=== PATIENT | female | born 1995 | race African-American/Black ===

== ENCOUNTER 2024-10-23 15:50 | Inpatient (IN) | payer OTHER, SELFPAY ==
[2024-10-23] VITALS (17 sets, daily range): BP systolic 106–138; BP diastolic 58–89; PULSE 80–118; RESP 7–20; TEMP 36.4; O2SAT 97–100; BMI 39.4
[2024-10-23 18:28] LABS: Add Manual Diff / Slide Review NO; Basophils Absolute Auto 100 /uL (0-100); Basophils Percent Auto 0.7 % (0-2); Eosinophils Absolute Auto 0 /uL (0-450); Eosinophils Percent Auto 0.5 % (2-4); Hematocrit 41.3 % (36-46); Hemoglobin 13.6 g/dL (12.0-16.0); Lymphocytes Absolute Auto 1700 /uL (1100-4500); Lymphocytes Percent Auto 18.9 % (25-40); Mean Corpuscular Hemoglobin 27.3 PG (26-34); Mean Corpuscular Volume 82.5 fL (80-100); Monocytes Absolute Auto 900 /uL (0-900); Monocytes Percent Auto 9.6 % (3-14); Neutrophils Absolute Auto 6500 /uL (1500-7000); Neutrophils Percent Auto 70.3 % (50-75); Platelet Count 312 X10^3/uL (150-400); Red Cell Distribution Width 15.5 % (11.6-14.8); White Blood Cell Count 9.2 X10^3/uL (4.5-11.0)
[2024-10-23] MEDS: ONDANSETRON 4 MG/2 ML INJ IV (18:34)
--- NOTE | 2024-10-23 18:37 | ED_ITS ---
HPI - Nausea/Vomiting/Diarrhea General Chief complaint: Nausea/Vomiting/Diarrhea Stated complaint: Difficulty swallowing, unable to take diabetic rx Time Seen by Provider: 10/23/24 16:28 Source: patient Mode of arrival: Ambulatory History of Present Illness HPI Narrative: 28-year-old female past medical history of diabetes coming into the ED from home for evaluation of dysphagia, she states that she has been having difficulty swallowing for the past month, states she last ate anything on 09/18/2024, states that she is only able to take small sips of water. She states that this is causing her to feel dehydrated, review of records show that patient has been seen multiple times at outside hospital for this, also went to [facility] ED last month on the and had a CT scan done there that did not show any obstruction or anatomical issues with her being able to swallow. He denies any other symptoms such as headache visual disturbances chest pain shortness breath fever chills abdominal pain or any other GI/ symptoms time. Related Data Home Medications Medication Instructions Recorded Confirmed insulin glargine 100 unit/mL 24 unit SQ HS ##0 02/07/12 07/18/23 subcutaneous solution (Lantus U-100 Insulin) insulin lispro 100 unit/mL 0 u SQ ##0 09/02/16 07/18/23 subcutaneous solution (Humalog U-100 Insulin) Allergies Allergy/AdvReac Type Severity Reaction Status Date / Time oxycodone Allergy Severe Hallucinating, Verified 07/18/23 14:42 SOB, panic attacks trospium Allergy Severe Anaphylaxis Verified 07/18/23 14:42 adhesive Allergy Verified 10/23/24 16:08 Review of Systems Review of Systems Narrative: General: Dysphagia, Denies fever, chills, weight loss HEENT: Denies headache, eye drainage, eye irritation, head trauma, sore throat, voice change Cardiovascular: Denies any chest pain, palpitations, tachycardia Respiratory: Denies any shortness of breath, cough, wheeze, stridor GI/: Denies any abdominal pain, nausea, vomiting, diarrhea, bright red blood per rectum, melanotic stools, urinary frequency, urinary retention, dysuria, hematuria MSK: Denies any joint pain, muscle pains, swelling Skin: Denies any rashes, lesions, discoloration Neuro: Denies any headache, lightheadedness, dizziness, fainting, weakness Psych: Denies SI/HI Patient History Social History Smoking Status: Unknown if ever smoked Smoking Status: Unknown if ever smoked Exam Narrative Exam Narrative: General: Cooperative, well-developed, not in acute distress HEENT: Normocephalic, atraumatic, PERRLA, normal sclera, eyelids normal Neck: Active full range of motion, atraumatic Chest: Normal to inspection, negative crepitus, no overlying erythema ecchymosis Respiratory: Normal respiratory effort, not in acute respiratory distress, clear to auscultation bilaterally negative cough, wheeze, tachypnea, rhonchi, rales Cardiology: Regular rate rhythm negative gallop, murmur, rubs GI/: No tenderness to palpation, soft, non rigid, normal to inspection, exam deferred MSK: Full active range of motion in all 4 extremities, atraumatic, no tenderness to palpation of any bony prominences Skin: No rashes or lesions noted Neuro: Alert awake oriented x3, moves all 4 extremities spontaneously, cranial nerves intact, able to answer all questions appropriately follows commands appropriately Psych: Cooperative, negative suicidal or homicidal ideations Initial Vital Signs Initial Vital Signs: Vital Signs Temperature 97.6 F 10/23/24 16:08 Pulse Rate 116 H 10/23/24 16:08 Respiratory Rate 14 10/23/24 16:08 Blood Pressure 138/89 10/23/24 16:08 Pulse Oximetry 100 10/23/24 16:08 Oxygen Delivery Method Room Air 10/23/24 16:08 Course Orders Ordered: ED Orders 10/23/24 16:29 Stool Culture Stat 10/23/24 18:17 Complete Blood Count AUTO DIFF Stat Comprehensive Metabolic Panel Stat 10/23/24 19:29 VBG [Venous Blood Gas] STAT 10/23/24 19:54 CMP [Comprehensive Metabolic Panel] Stat Ketones (Beta-Hydroxybutyrate) Stat 10/23/24 20:08 Venous Blood Gas Routine 10/23/24 21:12 Consult to Dietitian, Adult Routine 10/23/24 21:15 Basic Metabolic Panel Q4H Glucose DAILY 10/24/24 01:15 Basic Metabolic Panel Q4H 10/24/24 05:15 Basic Metabolic Panel Q4H Lactated Ringer's (Lactated Ringers) 1,000 mls @ 1,000 mls/hr IV BOLUS ONE Stop: 10/23/24 21:16 Discontinued Medications Sodium Chloride (Normal Saline 0.9%) 1,000 mls @ 1,000 mls/hr IV BOLUS ONE Stop: 10/23/24 17:27 Last Infusion: 10/23/24 19:49 Dose: Infused Documented By: Admin: 10/23/24 18:42 Dose: 1,000 mls/hr Documented By: HAMILTON Lorazepam (Lorazepam 0.5 Mg Tablet) 1 mg PO NOW ONE Stop: 10/23/24 21:12 Ondansetron HCl (Ondansetron 4 Mg/2 Ml Inj) 4 mg IV NOW ONE Stop: 10/23/24 16:29 Last Admin: 10/23/24 18:34 Dose: 4 mg Documented By: HAMILTON Vital Signs Vital signs: Vital Signs - 8 hr 10/23/24 16:08 10/23/24 17:40 10/23/24 18:00 Temperature 97.6 F Pulse Rate 116 H 118 H Respiratory Rate 14 Blood Pressure 138/89 132/86 Pulse Oximetry 100 100 Oxygen Delivery Method Room Air 10/23/24 18:00 10/23/24 18:30 10/23/24 18:30 Temperature Pulse Rate 109 H 92 H Respiratory Rate 20 Blood Pressure 109/70 Pulse Oximetry 100 100 Oxygen Delivery Method 10/23/24 19:00 10/23/24 19:00 10/23/24 19:30 Temperature Pulse Rate 87 Respiratory Rate 14 Blood Pressure 112/66 108/66 Pulse Oximetry 100 Oxygen Delivery Method 10/23/24 19:30 Temperature Pulse Rate 88 Respiratory Rate Blood Pressure Pulse Oximetry 100 Oxygen Delivery Method Room Air MDM - Nausea/Vomiting/Diarrhea Differential Diagnosis Differential diagnosis: Likely dehydration and other (Esophageal dysmotility, electrolyte abnormality) Lab Data 10/23/24 18:17 10/23/24 19:54 Labs: Lab Results 10/23/24 10/23/24 10/23/24 Range/Units 18:17 19:54 20:08 WBC 9.2 (4.5-11.0) X10^3/uL RBC 5.00 (4.0-5.2) X10^6/uL Hgb 13.6 (12.0-16.0) g/dL Hct 41.3 (36-46) % MCV 82.5 (80-100) fL MCH 27.3 (26-34) PG MCHC 33.0 (30-36) % RDW 15.5 H (11.6-14.8) % Plt Count 312 (150-400) X10^3/uL Neut % (Auto) 70.3 (50-75) % Lymph % (Auto) 18.9 L (25-40) % [place] % (Auto) 9.6 (3-14) % Eos % (Auto) 0.5 L (2-4) % Baso % (Auto) 0.7 (0-2) % Neut # (Auto) 6500 (1079-6199) /uL Lymph # (Auto) 1700 (8284-3254) /uL [place] # (Auto) 900 (0-900) /uL Eos # (Auto) 0 (0-450) /uL Baso # (Auto) 100 (0-100) /uL VBG pH 7.23 L (7.33-7.43) VBG pCO2 32.4 L (45-50) mmHg VBG pO2 49 H (35-45) mmHg VBG HCO3 14 L (24-28) mmol/L VBG Total CO2 13 L (24-29) mmol/L VBG O2 Saturation 77 H (70-75) % VBG Base Excess -12.9 L (0-4) mmol/L Sodium 135 L 137 (137-145) mmol/L Potassium 3.7 3.5 (3.4-5.1) mmol/L Chloride 105 107 (98-107) mmol/L Carbon Dioxide 9 L* 11 L (22-32) mmol/L BUN 3 L 3 L (7-17) mg/dL Creatinine 0.73 0.65 (0.52-1.04) mg/dL Estimated GFR > 60 > 60 (>60) mL/min BUN/Creatinine Ratio 4.1 L 4.6 L (6-22) Glucose 166 H 159 H (70-99) mg/dL Calcium 9.1 8.4 (8.4-10.2) mg/dL Total Bilirubin 0.7 0.5 (0.2-1.3) mg/dL AST 39 H 28 (14-36) IU/L ALT 24 21 (<35) IU/L Alkaline Phosphatase 91 84 (38-126) U/L Total Protein 8.4 H 7.5 (6.3-8.2) g/dL Albumin 4.6 4.2 (3.5-5.0) g/dL Globulin 3.8 3.3 (1.7-4.1) g/dL Albumin/Globulin Ratio 1.2 1.3 (1.0-2.8) Ketones 5.97 H (<0.27) mmol/L MDM Narrative Medical decision making narrative: 28-year-old female with a past medical history of diabetes stenting for dysphagia, she states it has been ongoing persistent for the past month, has been seen at outside hospitals for the same had imaging and was instructed that nothing was abnormal and to follow up with GI, she states that an appointment for this is several months and due to persistent decreased p.o. intake decides to come into the ED for further evaluation treatment. She states that she feels dehydrated, she states that every time she tries to swallow she feels like it gets stuck in her throat, she states that she has to cough it up, she states that she is worried that this is causing issues with her diabetic medications, she states that she is afraid at her diabetes will go out of control and that she will ? from this here patient without any electrolyte abnormality, glucose under control, I informed patient that she needs to follow up with GI and her primary care doctor for continued evaluation treatment of her symptoms, I stated that we can try a PPI to help with her symptoms for possible esophageal dysmotility, she verbalized understanding of this she was given strict return precautions and verbalized understanding of this, she states that she did feel better after 1 L normal saline bolus here in the emergency department. Patient's lab work consistent with DKA, patient did receive 2 L normal saline here in the emergency department, did start insulin drip per discussion with hospitalist. The patient's management plan was discussed Dr. Blood, who agrees to admit the patient to their service and assumes care of this patient at this time. Full admission orders will be placed by the primary team. Critical Care Time Critical Care Time Critical Care Time: Yes Total Critical Care Time: 35 Attestation: Authorized and Performed by: Minh Mata DO Total critical care time: Approximately [35] minutes Due to a high probability of clinically significant, life threatening deterioration, the patient required my highest level of preparedness to intervene emergently and I personally spent this critical care time directly and personally managing the patient. This critical care time included obtaining a history; examining the patient; pulse oximetry; ordering and review of studies; arranging urgent treatment with development of a management plan; evaluation of patient's response to treatment; frequent reassessment; and, discussions with other providers. This critical care time was performed to assess and manage the high probability of imminent, life-threatening deterioration that could result in multi-organ failure. It was exclusive of separately billable procedures and treating other patients and teaching time. Please see MDM section and the rest of the note for further information on patient assessment and treatment. Discharge Plan Departure Patient Disposition: Admitted As Inpatient Clinical Impression: DKA (diabetic ketoacidosis) Admit Date/Time: 10/23/24 21:11 Admit Provider: Melvin Page
[2024-10-23] MEDS: SODIUM CHLORIDE 0.9% 1,000 ML 1000 ML IV (18:42)
[2024-10-23 19:15] LABS: Alanine Aminotransferase 24 IU/L (<35); Albumin 4.6 g/dL (3.5-5.0); Albumin Globulin Ratio 1.2 (1.0-2.8); Alkaline Phosphatase 91 U/L (38-126); Aspartate Aminotransferase 39 IU/L (14-36); BUN Creatinine Ratio 4.1 (6-22); Bilirubin Total 0.7 mg/dL (0.2-1.3); Blood Urea Nitrogen 3 mg/dL (7-17); Calcium 9.1 mg/dL (8.4-10.2); Chloride 105 mmol/L (98-107); Estimated Glomerular Filt Rate > 60 mL/min (>60); Globulin 3.8 g/dL (1.7-4.1); Glucose 166 mg/dL (70-99); Potassium 3.7 mmol/L (3.4-5.1); Sodium 135 mmol/L (137-145); Total Protein 8.4 g/dL (6.3-8.2)
[2024-10-23 19:22] LABS: HEMOLYSIS 17 (0-50)
[2024-10-23 19:25] LABS: Carbon Dioxide 9 mmol/L (22-32)
[2024-10-23 20:12] LABS: Base Excess VBG -12.9 mmol/L (0-4); HCO3 VBG 14 mmol/L (24-28); Oxygen Saturation VBG 77 % (70-75); PCO2 VBG 32.4 mmHg (45-50); PO2 VBG 49 mmHg (35-45); Total CO2 VBG 13 mmol/L (24-29); pH VBG 7.23 (7.33-7.43)
[2024-10-23 20:36] LABS: Ketones (Beta-Hydroxybutyrate) 5.97 mmol/L (<0.27)
[2024-10-23 20:37] LABS: Alanine Aminotransferase 21 IU/L (<35); Albumin 4.2 g/dL (3.5-5.0); Albumin Globulin Ratio 1.3 (1.0-2.8); Alkaline Phosphatase 84 U/L (38-126); Aspartate Aminotransferase 28 IU/L (14-36); BUN Creatinine Ratio 4.6 (6-22); Bilirubin Total 0.5 mg/dL (0.2-1.3); Blood Urea Nitrogen 3 mg/dL (7-17); Calcium 8.4 mg/dL (8.4-10.2); Carbon Dioxide 11 mmol/L (22-32); Chloride 107 mmol/L (98-107); Estimated Glomerular Filt Rate > 60 mL/min (>60); Globulin 3.3 g/dL (1.7-4.1); Glucose 159 mg/dL (70-99); HEMOLYSIS < 15 (0-50); Potassium 3.5 mmol/L (3.4-5.1); Sodium 137 mmol/L (137-145); Total Protein 7.5 g/dL (6.3-8.2)
[2024-10-23] MEDS: SODIUM CHLORIDE 0.9% 1,000 ML 999 ML IV (22:33)
[2024-10-23] MEDS: LACTATED RINGERS 1,000 ML 1000 ML IV (22:33)
[2024-10-23] MEDS: DEXTROSE 5%-0.45% NS 1,000 ML 150 ML IV (22:34)
[2024-10-23] MEDS: INSULIN DRIP PREMIX 100 UNIT/100 ML PLAST..BAG 8.845 UNIT IV (23:37)
[2024-10-23] MEDS: DEXTROSE 5%-0.45NS W/KCL 20MEQ 1,000 ML 150 MEQ IV (23:40)
[2024-10-24] VITALS (27 sets, daily range): BP systolic 101–134; BP diastolic 55–80; PULSE 77–106; RESP 13–23; TEMP 36.3–36.4; O2SAT 97–100; BMI 39.0; BMI 39.4
[2024-10-24 00:26] LABS: Blood Urea Nitrogen 3 mg/dL (7-17); Calcium 8.1 mg/dL (8.4-10.2); Carbon Dioxide 12 mmol/L (22-32); Chloride 108 mmol/L (98-107); Estimated Glomerular Filt Rate > 60 mL/min (>60); Glucose 193 mg/dL (70-99); HEMOLYSIS < 15 (0-50); Potassium 3.8 mmol/L (3.4-5.1); Sodium 135 mmol/L (137-145)
[2024-10-24 00:41] LABS: Appearance Urine UA CLEAR; Bilirubin Urine UA NEGATIVE (NEGATIVE); Color Urine UA YELLOW; Glucose Urine UA NEGATIVE (Negative); Ketones Urine UA 3+ (NEGATIVE); Leukocyte Esterase Urine UA NEGATIVE (NEGATIVE); Nitrite Urine UA NEGATIVE (Negative); Occult Blood Urine UA TRACE-INTACT (Negative); Protein Urine UA NEGATIVE (Negative); Specific Gravity Urine UA >=1.030 (1.000-1.035); Urobilinogen Urine UA 0.2 E.U./dL (0.2)
[2024-10-24 00:42] LABS: pH Urine UA 5.5 (4.5-8.0)
[2024-10-24 00:44] LABS: Urine Volume 10mL (spun)
[2024-10-24 00:48] LABS: Bacteria Urine Few (2-10); Hyaline Casts Urine 1-5/LPF; RBC Urine None Seen (0-5/HPF); Squamous Epithelial Cell Urine 5-10 /HPF (0-5/HPF)
[2024-10-24 00:49] LABS: Culture Indicated Urine Cult Not Indicated; WBC Urine 0-1/HPF (0-5/HPF)
--- NOTE | 2024-10-24 00:50 | P.HP_ITS ---
History of Present Illness History of Present Illness Date Patient Seen: 10/23/24 Time Patient Seen: 23:30 Chief complaint: Difficulty swallowing, unable to take diabetic rx Narrative: 28 y/o with PMH of anxiety, insulin-dependent type 2 DM, obesity, came to the ED accompanied by father for difficulty swallowing. She reports on weeks and months-long difficulty with swallowing and on anxiety. ED workup showing DKA. She takes liquid metformin, long acting insulin 24 units daily and SS TID, at least 10 units on average. She was seen in another hospital with same complaints had non-revealing workup. She said repeatedly that she can only take sips of water and that she had no food for more then a month, which is not true. Started on insulin drip and admitted with DKA and anxiety. [facility] Medical History (Updated 10/24/24 @ 01:06 by Melvin Blood MD) Obesity Type 2 diabetes mellitus with insulin therapy Social History Smoking Status: Unknown if ever smoked Meds Home Medications and Allergies Home Medications Medication Instructions Recorded Confirmed Type insulin glargine 100 unit/mL 24 unit SQ HS ##0 02/07/12 07/18/23 History subcutaneous solution (Lantus U-100 Insulin) insulin lispro 100 unit/mL 0 u SQ ##0 09/02/16 07/18/23 History subcutaneous solution (Humalog U-100 Insulin) Allergies Allergy/AdvReac Type Severity Reaction Status Date / Time oxycodone Allergy Severe Hallucinating, Verified 07/18/23 14:42 SOB, panic attacks trospium Allergy Severe Anaphylaxis Verified 07/18/23 14:42 adhesive Allergy Verified 10/23/24 16:08 Review of Systems Review of Systems Narrative: General - w/o fever, chills, weight changes GI - difficulty swallowing Neuro - anxious CVS - had chest tightness RS - short of breath, breathing fast today Exam Vital Signs (past 8 hours): - 10/23/24 17:40 10/23/24 18:00 10/23/24 18:00 Pulse Rate 118 H 109 H Respiratory Rate 20 Blood Pressure 132/86 Pulse Oximetry 100 100 Oxygen Delivery Method 10/23/24 18:30 10/23/24 18:30 10/23/24 19:00 Pulse Rate 92 H Respiratory Rate Blood Pressure 109/70 112/66 Pulse Oximetry 100 Oxygen Delivery Method 10/23/24 19:00 10/23/24 19:30 10/23/24 19:30 Pulse Rate 87 88 Respiratory Rate 14 Blood Pressure 108/66 Pulse Oximetry 100 100 Oxygen Delivery Method Room Air 10/23/24 20:00 10/23/24 20:00 10/23/24 20:30 Pulse Rate 90 Respiratory Rate 20 Blood Pressure 113/72 107/62 Pulse Oximetry 100 Oxygen Delivery Method 10/23/24 20:30 10/23/24 21:00 10/23/24 21:00 Pulse Rate 94 H 89 Respiratory Rate 9 L Blood Pressure 106/66 Pulse Oximetry 100 100 Oxygen Delivery Method 10/23/24 21:02 10/23/24 21:02 10/23/24 21:30 Pulse Rate 102 H 84 Respiratory Rate 7 L Blood Pressure 110/67 Pulse Oximetry 100 100 Oxygen Delivery Method 10/23/24 21:30 10/23/24 22:00 10/23/24 22:00 Pulse Rate 94 H Respiratory Rate Blood Pressure 107/58 L 116/68 Pulse Oximetry 100 Oxygen Delivery Method 10/23/24 22:24 10/23/24 22:24 10/23/24 22:33 Pulse Rate 97 H 108 H Respiratory Rate Blood Pressure 122/84 Pulse Oximetry 100 Oxygen Delivery Method 10/23/24 22:34 10/23/24 22:34 10/23/24 23:00 Pulse Rate 99 H 85 Respiratory Rate Blood Pressure 129/75 Pulse Oximetry 97 100 Oxygen Delivery Method Room Air 10/23/24 23:00 10/23/24 23:30 10/23/24 23:30 Pulse Rate 80 Respiratory Rate Blood Pressure 122/68 118/68 Pulse Oximetry 100 Oxygen Delivery Method 10/24/24 00:00 10/24/24 00:00 10/24/24 00:30 Pulse Rate 95 H Respiratory Rate 21 Blood Pressure 111/55 L 116/64 Pulse Oximetry 100 Oxygen Delivery Method Room Air 10/24/24 00:30 Pulse Rate 90 Respiratory Rate 23 Blood Pressure Pulse Oximetry 100 Oxygen Delivery Method Oxygen Delivery Method Room Air Narrative Exam Narrative: General - appears anxious, in no distress, father at bedside in the ED HEENT - normocephalic, supple neck CVS - RRR RS- tachypnea GI - obese abdomen Neuro - w/o deficits. Anxious. Objective Labs 10/23/24 18:17 10/24/24 00:00 Labs: Laboratory Results - last 24 hr 10/23/24 10/23/24 10/23/24 18:17 19:54 20:08 WBC 9.2 RBC 5.00 Hgb 13.6 Hct 41.3 MCV 82.5 MCH 27.3 MCHC 33.0 RDW 15.5 H Plt Count 312 Neut % (Auto) 70.3 Lymph % (Auto) 18.9 L [place] % (Auto) 9.6 Eos % (Auto) 0.5 L Baso % (Auto) 0.7 Neut # (Auto) 6500 Lymph # (Auto) 1700 [place] # (Auto) 900 Eos # (Auto) 0 Baso # (Auto) 100 VBG pH 7.23 L VBG pCO2 32.4 L VBG pO2 49 H VBG HCO3 14 L VBG Total CO2 13 L VBG O2 Saturation 77 H VBG Base Excess -12.9 L Sodium 135 L 137 Potassium 3.7 3.5 Chloride 105 107 Carbon Dioxide 9 L* 11 L BUN 3 L 3 L Creatinine 0.73 0.65 Estimated GFR > 60 > 60 BUN/Creatinine Ratio 4.1 L 4.6 L Glucose 166 H 159 H Calcium 9.1 8.4 Total Bilirubin 0.7 0.5 AST 39 H 28 ALT 24 21 Alkaline Phosphatase 91 84 Total Protein 8.4 H 7.5 Albumin 4.6 4.2 Globulin 3.8 3.3 Albumin/Globulin Ratio 1.2 1.3 Urine Color Urine Appearance Urine pH Ur Specific [place] Urine Protein Urine Glucose (UA) Urine Ketones Urine Occult Blood Urine Nitrate Urine Bilirubin Urine Urobilinogen Ur Leukocyte Esterase Urine RBC Urine WBC Ur Squamous Epith Cells Urine Bacteria Hyaline Casts Ur Culture Indicated? Vol Urine Centrifuged Ketones 5.97 H 10/24/24 10/24/24 00:00 00:16 WBC RBC Hgb Hct MCV MCH MCHC RDW Plt Count Neut % (Auto) Lymph % (Auto) [place] % (Auto) Eos % (Auto) Baso % (Auto) Neut # (Auto) Lymph # (Auto) [place] # (Auto) Eos # (Auto) Baso # (Auto) VBG pH VBG pCO2 VBG pO2 VBG HCO3 VBG Total CO2 VBG O2 Saturation VBG Base Excess Sodium 135 L Potassium 3.8 Chloride 108 H Carbon Dioxide 12 L BUN 3 L Creatinine 0.60 Estimated GFR > 60 BUN/Creatinine Ratio 5.0 L Glucose 193 H Calcium 8.1 L Total Bilirubin AST ALT Alkaline Phosphatase Total Protein Albumin Globulin Albumin/Globulin Ratio Urine Color Yellow Urine Appearance Clear Urine pH 5.5 Ur Specific [place] >=1.030 H Urine Protein Negative Urine Glucose (UA) Negative Urine Ketones 3+ H Urine Occult Blood Trace-intact Urine Nitrate Negative Urine Bilirubin Negative Urine Urobilinogen 0.2 Ur Leukocyte Esterase Negative Urine RBC None seen Urine WBC 0-1/hpf Ur Squamous Epith Cells 5-10 /hpf H Urine Bacteria Few (2-10) H Hyaline Casts 1-5/lpf Ur Culture Indicated? Cult not indicated Vol Urine Centrifuged 10ml (spun) Ketones Assessment & Plan Assessment and plan (1) DKA (diabetic ketoacidosis): Qualifiers: Diabetes mellitus type: due to underlying condition Diabetes mellitus complication detail: without coma Qualified Code(s): E08.10 - Diabetes mellitus due to underlying condition with ketoacidosis without coma Status: Acute (2) Type 2 diabetes mellitus with insulin therapy: Status: Acute (3) Anxiety: Status: Acute (4) Obesity: Qualifiers: Obesity type: due to excess calories Obesity classification: adult class 2 (BMI 35 - 39.9) Serious obesity comorbidity presence: with serious comorbidity Body mass index: BMI 39.0-39.9 Qualified Code(s): E66.812 - Obesity, class 2; E66.01 - Morbid (severe) obesity due to excess calories; Z68.39 - Body mass index [BMI] 39.0-39.9, adult Status: Acute Assessment & Plan narrative: DKA - insulin drip - IVFs, electrolytes - first such an episode since the first one that led to diagnosis of DM in 2019 IDDMT2 - takes metformin, Lantus and Novolog at home - A1C pending Anxiety - likely contributing to feeling of dysphagia, poor intake and possibly DKA - Xanax prn DVT prophylaxis - SCDs GI prophylaxis - Pepcid Patient consented to telemedicine, audio-video encounter with RN assisting with the exam. Patient located at [place], [place]. Provider located in [place]. Time-Based Coding :: [TOTAL MINUTES] spent with patient and on the chart (including review of chart, obtaining history, exam, reviewing outside data, placing orders, documenting exam and treatment plan, and counseling patient) on [DATE].
[2024-10-24 05:09] LABS: Add Manual Diff / Slide Review NO; Basophils Absolute Auto 100 /uL (0-100); Basophils Percent Auto 0.7 % (0-2); Eosinophils Absolute Auto 100 /uL (0-450); Eosinophils Percent Auto 1.6 % (2-4); Hematocrit 32.7 % (36-46); Hemoglobin 11.3 g/dL (12.0-16.0); Lymphocytes Absolute Auto 2200 /uL (1100-4500); Lymphocytes Percent Auto 27.2 % (25-40); Mean Corpuscular HGB Conc 34.5 % (30-36); Mean Corpuscular Hemoglobin 27.8 PG (26-34); Mean Corpuscular Volume 80.7 fL (80-100); Monocytes Absolute Auto 1000 /uL (0-900); Monocytes Percent Auto 12.5 % (3-14); Neutrophils Absolute Auto 4600 /uL (1500-7000); Platelet Count 268 X10^3/uL (150-400); Red Blood Cell Count 4.05 X10^6/uL (4.0-5.2); Red Cell Distribution Width 15.4 % (11.6-14.8); White Blood Cell Count 7.9 X10^3/uL (4.5-11.0)
[2024-10-24 05:20] LABS: BUN Creatinine Ratio 3.3 (6-22); Blood Urea Nitrogen 2 mg/dL (7-17); Calcium 7.8 mg/dL (8.4-10.2); Carbon Dioxide 14 mmol/L (22-32); Chloride 111 mmol/L (98-107); Estimated Glomerular Filt Rate > 60 mL/min (>60); Glucose 141 mg/dL (70-99); HEMOLYSIS < 15 (0-50); Potassium 3.3 mmol/L (3.4-5.1); Sodium 135 mmol/L (137-145)
[2024-10-24 05:24] LABS: Hemoglobin A1C% w Est Avg Glu 7.5 % (4.0-6.0)
[2024-10-24] MEDS: DEXTROSE 5%-0.45NS W/KCL 20MEQ 1,000 ML 150 MEQ IV (06:54)
[2024-10-24 07:20] LABS: Calcium 7.9 mg/dL (8.4-10.2); Carbon Dioxide 14 mmol/L (22-32); Chloride 111 mmol/L (98-107); Estimated Glomerular Filt Rate > 60 mL/min (>60); Glucose 125 mg/dL (70-99); HEMOLYSIS < 15 (0-50); Potassium 3.3 mmol/L (3.4-5.1); Sodium 135 mmol/L (137-145)
[2024-10-24 07:21] LABS: BUN Creatinine Ratio 3.6 (6-22); Blood Urea Nitrogen < 2 mg/dL (7-17)
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
[2024-10-24] MEDS: INSULIN GLARGINE 100 UNIT/ML 3ML PEN 20 UNIT SUBCUT (08:35)
[2024-10-24] MEDS: FAMOTIDINE 20 MG/2 ML VIAL IV ×2 (08:36→23:43)
--- NOTE | 2024-10-24 09:11 | PC.NURSE ---
Informed MD Rojo and Marcelo (Pharm) that there was a malfunction in administration the first time 20 units Lantus was given--pen did not puncture skin and insulin noted to be on skin. 2nd administration was attempted in which some insulin was noted to be on skin again and pt states they are not sure if needle punctured skin. MD Rojo stated we will watch pt. Pharmacy stated to hold off on any further administrations.
--- NOTE | 2024-10-24 10:08 | PC.NURSE ---
Pt reports inability to swallow but states she is able to swallow ensure and water w/o issue
[2024-10-24 10:20] LABS: BUN Creatinine Ratio 3.8 (6-22); Blood Urea Nitrogen < 2 mg/dL (7-17); Calcium 8.2 mg/dL (8.4-10.2); Carbon Dioxide 15 mmol/L (22-32); Chloride 110 mmol/L (98-107); Estimated Glomerular Filt Rate > 60 mL/min (>60); Glucose 127 mg/dL (70-99); HEMOLYSIS 20 (0-50); Potassium 3.5 mmol/L (3.4-5.1); Sodium 135 mmol/L (137-145)
--- NOTE | 2024-10-24 16:36 | ST.SWALLOW ---
Visit Care Team Role Provider Type Lori Hickey PA-C Other Providers [employer] Grinder Operator Specialty: Medical Wound Care Address: [address] [place] [address], [id number] Email: [email or web address] Evan Zelaya MD Other Providers Physician Specialty: General Surgery Address: [address] [place] [address], [address], [address] Email: [email or web address] Zoila Cuevas DPM Other Providers Non-Staff Specialty: Podiatry Address: [address] [place] [address], [id number] Email: Molina Spicer MD Other Providers Physician Specialty: Wound Care Address: [address] [place] [address], [id number] Email: [email or web address] Hans Coreas MD Other Providers Non-Staff Specialty: Wound Care Address: [address] [place] [address], [id number] Email: [email or web address] ROSA ISELA Lemon Family Provider Non-Staff Primary Care Provider Specialty: Medical Address: [place], [address] Email: Minh Mata DO Emergency Provider Physician Referring Provider Specialty: Emergency Medicine Address: [address] [place] [address], [id number] Fax: Email: [email or web address] Melvin Blood MD Admit Provider Physician Attending Provider Specialty: Internal Medicine Address: [address] [place] [address], [id number] Email: [email or web address] Modified Barium Swallow Study CUSTOMS ENTRY CLERK Modified Barium Swallow Study Start: 10/24/24 14:27 Freq: Status: Active Protocol: Document 10/24/24 14:27 SS (Rec: 10/24/24 14:30 SS Desktop) Modified Barium Swallow Study Total Time Visit Start Time 13:45 Visit Stop Time 14:20 Total Visit Minutes [address] Francois Rojo Reason for Referral Difficulty swallowing Setting Setting Acute Care Patient Information Identification Type Name,Date of Patient History Per H&P:28 y/o with PMH of anxiety, insulin-dependent type 2 DM, obesity, came to the ED accompanied by father for difficulty swallowing. She reports on weeks and months- long difficulty with swallowing and on anxiety. ED workup showing DKA. She takes liquid metformin, long acting insulin 24 units daily and SS TID, at least 10 units on average. She was seen in another hospital with same complaints had non-revealing workup. She said repeatedly that she can only take sips of water and that she had no food for more then a month, which is not true. Started on insulin drip and admitted with DKA and anxiety. Per clinical swallowing evaluation completed on 10/24, pt referred for ST evaluation d/t Pt admitted for difficulty swallowing. She reports she has had trouble swallowing for about a month now, ever since she choked on what she believes was a donut. She denies any choking events this then, however state food feels like it gets stuck in her throat and that there's a lump in her throat. She reports she has tried pureed textures and smoothies and they all feel like they get stuck. She reports the only thing she can consume that doesn't get stuck is water or shakes that are thinned out with water. Pt reported progressing difficulty with swallowing for about 2-3 months. She reported oral musculature fatigue, sensation of solids and thicker liquids sticking in her throat and getting stuck, coughing and regurgitation after meals, and feeling of spasms in her esophagus. About a month ago, she reported stopping eating solids and thicker liquids due to fear of these symptoms. Medical history includes insulin-dependent type 2 DM, anxiety, and admitting diagnosis of diabetic ketoacidosis. Pt does have GERD, though is not currently managing with medication. She denied recent falls/injuries to the head and neck area, neurological dx, PNA, or esophageal/pulmonary issues. Modified Barium Swallow Study (MBSS) completed to visualize and assess swallow function and anatomy, determine aspiration risk, make appropriate and updated diet and treatment recommendations, as well as to identify need for additional referrals. Subjective Observations Pt was seated in the fluoroscopy chair with directions and procedures described for her. She indicated she understood and agreed to proceed. Frequent reassurance provided as pt was anxious throughout the study. Patient Positioning Position View Lat-A/P Imaging Lateral View Textures Administered Trials Presented Thin Liquid via Spoon (IDDSI 0 ),Thin Liquid via Cup (IDDSI 0 ),Puree (IDDSI 4),Regular ( IDDSI 7) Barium Tablet No The IDDSI Framework Protocol: IDDSI.1 Oral Impairment Source: The Modified Barium Swallow Impairment Profile (MBSImP??) Lip Closure No labial escape Tongue Control During Bolus Hold Cohesive bolus between tongue to palatal seal Bolus Preparation/Mastication Timely & efficient chewing & mashing Bolus Transport/Lingual Motion Brisk tongue motion Oral Residue Complete oral clearance Initiation of Pharyngeal Swallow Bolus head at posterior angle of ramus (first hyoid excursion) Additional Oral Impairment Observations Within normal limits. Oral acceptance of bolus was WNL. Pt demonstrated adequate labial seal. Bolus formation was organized and efficient. Anterior-posterior transit of the bolus was timely. Mastication was timely and efficient. There was no significant oral residue observed. Oral bolus control was WNL. Pharyngeal Impairment Source: The Modified Barium Swallow Impairment Profile (MBSImP??) Soft Palate Elevation No bolus between soft palate & pharyngeal wall Laryngeal Elevation Comp.sup.move.thyroid cart.w/ comp.approx.arytenoids to epiglot petiole Anterior Hyoid Excursion Complete anterior movement Epiglottic Movement Complete inversion Laryngeal Vestibular Closure Complete; no air/contrast in laryngeal vestibule Pharyngeal Stripping Wave Present - complete Pharyngoesophageal Segment Opening Complete distention & complete duration; no obstruction of flow Tongue Base Retraction No contrast between tongue base & posterior pharyngeal wall Pharyngeal Residue Trace residue within/on pharyngeal structures Location Diffuse (>3 areas) Additional Pharyngeal Impairment Within normal limits. Swallow Observations was initiated with liquids and solids at the posterior angle of the ramus. Velopharyngeal closure was WNL. Hyoid/ laryngeal elevation was judged to be adequate. The epiglottis inverted completely . Tongue base retraction was adequate. Pharyngeal stripping wave was complete. Cricopharyngeal opening appeared adequate and did not appear to impede bolus flow into the esophagus. Trace post -swallow residue was observed, primarily at the base of tongue and valleculae, though this is a normal variation. Pt sensate to residue and independently cleared with multiple dry swallows. A/P View Textures Administered Trials Presented Thin Liquid via Cup (IDDSI 0), Regular (IDDSI 7) The IDDSI Framework Protocol: IDDSI.1 A/P View Observations Pharyngeal Contraction Complete Esophageal Clearance Upright Position Esophageal retention w/ regtrograde flow below pharyngoesoph segment Additional A-P Observations Trace residual following some trials of thin liquids via cup . Reverse flow of small amount of contrast observed mid chest as well as small air bubble, quickly clearing to the stomach. Pt reported feeling of esophageal spasm and sticking sensation ( pointing at her throat). Only small amounts of liquids and solids trials due to pt feeling anxious about eliciting further symptoms. Barium tablet withheld given pt request. Esophagus quickly cleared without need for liquid wash. Pt coughed following trials, reporting sticking sensation, though contrast had cleared to the stomach at that point. Clinical Impressions Dysphagia Type WNL,Esophageal Findings Pt presented with all phases of swallowing WNL. AP view indicated minimal esophageal retention and reverse flow of contrast, quickly clearing. Impairment in the esophageal phase of the swallow, combined with unmanaged GERD, may be the cause of the globus sensation and other symptoms reported by the pt. This may also be related to referred sensation reported by pt. Education regarding the findings of today's evaluation was provided and treatment recommendations were reviewed. Pt would benefit from general GERD precautions, including sitting upright for during intake and for 30 minutes after, slow rate, and alternating liquids and solids with aid with esophageal clearance. Recommend continuation with baseline diet of regular solids and thin liquids. Pt may modify texture of solids as needed. Recommend pt follow MD recommendation for EGD to rule out severe esophagitis from reflux versus stricture as well as PPI to manage GERD. No concern for swallowing efficiency/safety at this time , though pt will benefit from a GI referral. CUSTOMS ENTRY CLERK discussed MBS results and recommendations with MD. Patient Appropriate for Therapy No: Suspected esophageal phase impairment; further GI workup recommended Recommendations Diet Liquids Order Thin (IDDSI 0) Diet Order Regular (IDDSI 7) Medication Recommendation As Tolerated Treatment Plan Recommended Referrals GI Consult,Dietary Consult Placement Recommendation After Discharge Home
--- NOTE | 2024-10-24 16:46 | ST.IPCSEOM ---
Visit Care Team Role Provider Type Lori Hickey PA-C Other Providers Advanced Latcher Specialty: Medical Wound Care Address: [address] [place] [address], [address] Email: [email or web address] Evan Zelaya MD Other Providers Physician Specialty: General Surgery Address: [address] [place] [address], [address], [place], [address] Email: [email or web address] Zoila Cuevas DPM Other Providers Non-Staff Specialty: Podiatry Address: [address] [place] [address], [address] Email: Molnia Spicer MD Other Providers Physician Specialty: Wound Care Address: [address] [place] [address], [address] Email: [email or web address] Hans Coreas MD Other Providers Non-Staff Specialty: Wound Care Address: [address] [place] [address], [address] Email: [email or web address] ROSA ISELA Lemon Family Provider Non-Staff Primary Care Provider Specialty: Medical Address: [place], [address] Email: Minh Mata DO Emergency Provider Physician Referring Provider Specialty: Emergency Medicine Address: [address] [place] [address], [address] Fax: Email: [email or web address] Melvin Blood MD Admit Provider Physician Attending Provider Specialty: Internal Medicine Address: [address] [place] [address], [address] Email: [email or web address] Diabetes mellitus due to underlying condition with ketoacidosis without coma (10/23/24) Type 2 diabetes mellitus without complications (10/23/24) Morbid (severe) obesity due to excess calories (10/23/24) Obesity, class 2 (10/23/24) Anxiety disorder, unspecified (10/23/24) Body mass index [BMI] 39.0-39.9, adult (10/23/24) [facility] (current) use of insulin (10/23/24) Past Medical History (Last Reviewed 10/24/24 @ 07:22 by Francois Rojo MD) Obesity (Medical) Type 2 diabetes mellitus with insulin therapy (Medical) Speech-Language Pathology Swallow Evaluation CNC MANAGER Clinical Swallow Evaluation Start: 10/24/24 13:54 Freq: Status: Active Protocol: Document 10/24/24 13:55 MA (Rec: 10/24/24 14:13 MA Desktop) Clinical Swallow Evaluation Session Time Visit Start Time 12:20 Visit Stop Time 12:45 Total Visit Minutes 25 Visit Information Visit Number [address] Francois Rojo Reason for Referral Difficulty swallowing Setting Assessment Location Acute Care Visit Type Note Type Initial evaluation Next Note Type Next Note Type Treatment Note Patient Information Identification Type Name,Wristband History Per H&P:28 y/o with PMH of anxiety, insulin-dependent type 2 DM, obesity, came to the ED accompanied by father for difficulty swallowing. She reports on weeks and months-long difficulty with swallowing and on anxiety. ED workup showing DKA. She takes liquid metformin, long acting insulin 24 units daily and SS TID, at least 10 units on average. She was seen in another hospital with same complaints had non-revealing workup. She said repeatedly that she can only take sips of water and that she had no food for more then a month, which is not true. Started on insulin drip and admitted with DKA and anxiety. PMHx significant for: Obesity Type 2 diabetes mellitus with insulin therapy Pt referred for ST evaluation d/t Pt admitted for difficulty swallowing. She reports she has had trouble swallowing for about a month now, ever since she choked on what she believes was a donut. She denies any choking events this then, however state food feels like it gets stuck in her throat and that there's a lump in her throat. She reports she has tried pureed textures and smoothies and they all feel like they get stuck. She reports the only thing she can consume that doesn't get stuck is water or shakes that are thinned out with water. Subjective Observations Pt sitting on EOB upon ST entering room. Pt is oriented, alert, and compliant with ST evaluation. Reported by Patient/Caregiver Other Symptoms Difficulty swallowing liquids, Difficulty swallowing solids, Food gets stuck Current Diet Regular (IDDSI 7) Baseline Feeding Method Independent in self-feeding The IDDSI Framework Protocol: IDDSI.1 Objective Assessment Mental Status Alert,Responsive,Cooperative Oral Integrity WFL Dentition Within normal limits Lip Function Within normal limits Pucker Within normal limits Lip Retraction Within normal limits Alternating Pucker/Lip Retraction Within normal limits Tongue Function Within normal limits Observations of Tongue at Rest Within normal limits Tongue Protrusion Within normal limits Tongue Retraction Within normal limits Jaw Opening Within normal limits Jaw Closing Within normal limits Food and Liquid Trials Position During Assessment Upright (90 degrees) Liquids Trialed Thin (IDDSI 0) Solid Trials Purred (IDDSI 4) Administration Type Tea spoon Oral Impairment Within normal limits Oral Phase Comments Pt with reduced PO intake d/t her reporting scared of choking. She was compliant with consuming thin water via cup and a 1/2 tsp of applesauce 1x. For thin water she exhibited adequate sip size and rate, good oral acceptance and containment. Same results orally for trial of applesauce. She was presented with pudding trial, however declined d/t nervousness around choking. Pharyngeal Impairment Within functional limits Pharyngeal Phase Comments Pt exhibited no overt s/s of aspiration such as choking or coughing with clear vocal quality post swallows. However , ST unable to fully assess pharyngeal phase of the swallow d/t limited PO trials. She reported globus sensation post swallow of applesauce and stated it was the same feeling she had when she swallowed Ensure earlier in the day. Fatigue/Endurance Endurance WNL Strategies Attempted Effortful swallow The IDDSI Framework Protocol: IDDSI.1 Findings Swallowing Function Within functional limits Severity of Swallow Impairment Within functional limits Prognosis Good Comment ST suspects Pt reported swallowing difficulties are associated with an esophageal component. Recommendations Instrumental Assessment Yes Swallowing Treatment No Recommended Solids Regular (IDDSI 7) Recommended Liquids Thin (IDDSI 0) Other Recommendations ST recommends Pt consume baseline diet of regular solids and thin liquids at this time per her tolerance. ST unable to assess swallow function with different consistencies d/t Pt declining d/t her reporting nervous she will choke. ST communicated recommendation for Pt to have a MBS done with MD who agreed and ordered MBS , which Pt is scheduled for later this date to further analyze oral and pharyngeal phase of the swallow. Safety Precautions/Swallowing Remain upright (90 degrees) Recommendations during all oral intake,Upright position at least 30 minutes after meals,Small bites and sips when eating,Slow rate; swallow between bites Medication Recommendations As Tolerated Discharge Recommendations Home Referrals Recommended Referrals Dietary,Gastroenterology Education Patient/Caregiver Education Described results of evaluation,Patient expressed understanding of evaluation, Patient expressed agreement with goals & treatment plans
--- NOTE | 2024-10-24 17:59 | PM.CN.IH.1 ---
History of Present Illness Consult details Date Patient Seen: 10/24/24 Time Patient Seen: 17:59 Chief complaint: Difficulty swallowing, unable to take diabetic rx Narrative: Faith is a 28-year-old woman with multiple medical problems who presents with dysphagia. She states that she has not eaten solid food in about a month. Food tends to get stuck in her throat and she has to cough it back up. She had an EGD many years ago. Meds Home Medications and Allergies Home Medications Medication Instructions Recorded Confirmed Type insulin glargine 100 unit/mL 24 unit SQ HS ##0 02/07/12 07/18/23 History subcutaneous solution (Lantus U-100 Insulin) insulin lispro 100 unit/mL 0 u SQ ##0 09/02/16 07/18/23 History subcutaneous solution (Humalog U-100 Insulin) Allergies Allergy/AdvReac Type Severity Reaction Status Date / Time oxycodone Allergy Severe Hallucinating, Verified 07/18/23 14:42 SOB, panic attacks trospium Allergy Severe Anaphylaxis Verified 07/18/23 14:42 adhesive Allergy Verified 10/23/24 16:08 Peaches Allergy Uncoded 10/24/24 16:17 Exam Vital Signs (past 8 hours): - 10/24/24 10:31 Temperature 97.6 F Pulse Rate 106 H Respiratory Rate 16 Blood Pressure 113/80 Pulse Oximetry 99 Oxygen Flow Rate 0 Oxygen Delivery Method Room Air Oxygen Flow Rate 0 Const General: No acute distress Objective Labs 10/24/24 05:00 10/24/24 09:55 Labs: Laboratory Results - last 24 hr 10/23/24 10/23/24 10/23/24 18:17 19:54 20:08 WBC 9.2 RBC 5.00 Hgb 13.6 Hct 41.3 MCV 82.5 MCH 27.3 MCHC 33.0 RDW 15.5 H Plt Count 312 Neut % (Auto) 70.3 Lymph % (Auto) 18.9 L Bradley % (Auto) 9.6 Eos % (Auto) 0.5 L Baso % (Auto) 0.7 Neut # (Auto) 6500 Lymph # (Auto) 1700 Bradley # (Auto) 900 Eos # (Auto) 0 Baso # (Auto) 100 VBG pH 7.23 L VBG pCO2 32.4 L VBG pO2 49 H VBG HCO3 14 L VBG Total CO2 13 L VBG O2 Saturation 77 H VBG Base Excess -12.9 L Sodium 135 L 137 Potassium 3.7 3.5 Chloride 105 107 Carbon Dioxide 9 L* 11 L BUN 3 L 3 L Creatinine 0.73 0.65 Estimated GFR > 60 > 60 BUN/Creatinine Ratio 4.1 L 4.6 L Glucose 166 H 159 H Hemoglobin A1c Calcium 9.1 8.4 Total Bilirubin 0.7 0.5 AST 39 H 28 ALT 24 21 Alkaline Phosphatase 91 84 Total Protein 8.4 H 7.5 Albumin 4.6 4.2 Globulin 3.8 3.3 Albumin/Globulin Ratio 1.2 1.3 Urine Color Urine Appearance Urine pH Ur Specific [place] Urine Protein Urine Glucose (UA) Urine Ketones Urine Occult Blood Urine Nitrate Urine Bilirubin Urine Urobilinogen Ur Leukocyte Esterase Urine RBC Urine WBC Ur Squamous Epith Cells Urine Bacteria Hyaline Casts Ur Culture Indicated? Vol Urine Centrifuged Ketones 5.97 H 10/24/24 10/24/24 10/24/24 00:00 00:16 05:00 WBC 7.9 RBC 4.05 Hgb 11.3 L Hct 32.7 L MCV 80.7 MCH 27.8 MCHC 34.5 RDW 15.4 H Plt Count 268 Neut % (Auto) 58.0 Lymph % (Auto) 27.2 Bradley % (Auto) 12.5 Eos % (Auto) 1.6 L Baso % (Auto) 0.7 Neut # (Auto) 4600 Lymph # (Auto) 2200 Bradley # (Auto) 1000 H Eos # (Auto) 100 Baso # (Auto) 100 VBG pH VBG pCO2 VBG pO2 VBG HCO3 VBG Total CO2 VBG O2 Saturation VBG Base Excess Sodium 135 L 135 L Potassium 3.8 3.3 L Chloride 108 H 111 H Carbon Dioxide 12 L 14 L BUN 3 L 2 L Creatinine 0.60 0.61 Estimated GFR > 60 > 60 BUN/Creatinine Ratio 5.0 L 3.3 L Glucose 193 H 141 H Hemoglobin A1c 7.5 H Calcium 8.1 L 7.8 L Total Bilirubin AST ALT Alkaline Phosphatase Total Protein Albumin Globulin Albumin/Globulin Ratio Urine Color Yellow Urine Appearance Clear Urine pH 5.5 Ur Specific [place] >=1.030 H Urine Protein Negative Urine Glucose (UA) Negative Urine Ketones 3+ H Urine Occult Blood Trace-intact Urine Nitrate Negative Urine Bilirubin Negative Urine Urobilinogen 0.2 Ur Leukocyte Esterase Negative Urine RBC None seen Urine WBC 0-1/hpf Ur Squamous Epith Cells 5-10 /hpf H Urine Bacteria Few (2-10) H Hyaline Casts 1-5/lpf Ur Culture Indicated? Cult not indicated Vol Urine Centrifuged 10ml (spun) Ketones 10/24/24 10/24/24 07:00 09:55 WBC RBC Hgb Hct MCV MCH MCHC RDW Plt Count Neut % (Auto) Lymph % (Auto) Bradley % (Auto) Eos % (Auto) Baso % (Auto) Neut # (Auto) Lymph # (Auto) Bradley # (Auto) Eos # (Auto) Baso # (Auto) VBG pH VBG pCO2 VBG pO2 VBG HCO3 VBG Total CO2 VBG O2 Saturation VBG Base Excess Sodium 135 L 135 L Potassium 3.3 L 3.5 Chloride 111 H 110 H Carbon Dioxide 14 L 15 L BUN < 2 L < 2 L Creatinine 0.56 0.52 Estimated GFR > 60 > 60 BUN/Creatinine Ratio 3.6 L 3.8 L Glucose 125 H 127 H Hemoglobin A1c Calcium 7.9 L 8.2 L Total Bilirubin AST ALT Alkaline Phosphatase Total Protein Albumin Globulin Albumin/Globulin Ratio Urine Color Urine Appearance Urine pH Ur Specific [place] Urine Protein Urine Glucose (UA) Urine Ketones Urine Occult Blood Urine Nitrate Urine Bilirubin Urine Urobilinogen Ur Leukocyte Esterase Urine RBC Urine WBC Ur Squamous Epith Cells Urine Bacteria Hyaline Casts Ur Culture Indicated? Vol Urine Centrifuged Ketones [facility] Medical History Obesity Type 2 diabetes mellitus with insulin therapy Social History household members: family Tobacco & Substance Use Smoking Status: Never smoker Assessment & Plan Assessment and plan (1) Dysphagia: Qualifiers: Dysphagia type: esophageal phase Qualified Code(s): R13.19 - Other dysphagia Status: Acute Plan We discussed the role of an EGD for dysphagia. We can put her on scheduled for an EGD tomorrow afternoon. She would like to proceed. Time-Based Coding :: [TOTAL MINUTES] spent with patient and on the chart (including review of chart, obtaining history, exam, reviewing outside data, placing orders, documenting exam and treatment plan, and counseling patient) on [DATE]. PROFEE Charge Codes Inpatient or Observation consultation: [id number]
[2024-10-24] MEDS: PANTOPRAZOLE 40 MG VIAL IV ×2 (18:19→23:36)
[2024-10-24] MEDS: METOCLOPRAMIDE 10 MG/2 ML INJ 5 MG IV (23:37)
[2024-10-25] VITALS (7 sets, daily range): BP systolic 99–122; BP diastolic 53–80; PULSE 83–114; RESP 14–25; TEMP 36.1–36.6; O2SAT 97–100
--- NOTE | 2024-10-25 | PATH_ITS ---
[facility] Accession Number: [id number] No. of containers..05 Tissue . 01 Material submitted: . PART A: duodenum - DUODENAL BIOPSY PART B: gastrointestinal site - ANTRAL BIOPSY PART C: gastrointestinal site - STOMACH, FUNDUS BIOPSY PART D: esophagus - ESOPHAGEAL, DISTAL PART E: esophagus - ESOPHAGEAL, MID . 01 Diagnosis: A. DUODENUM, BIOPSY: Histologically unremarkable duodenal mucosa. Negative for villous blunting and intraepithelial lymphocytosis. . B. STOMACH, ANTRUM, BIOPSY: Antral mucosa with focal mild chronic inflammation. Negative for Helicobacter organisms and intestinal metaplasia. . C. STOMACH, FUNDUS, BIOPSY: Histologically unremarkable oxyntic mucosa. Negative for Helicobacter organisms and intestinal metaplasia. . D. DISTAL ESOPHAGUS, BIOPSY: Histologically unremarkable squamous epithelium. Negative for intraepithelial eosinophilia. . E. MID ESOPHAGUS, BIOPSY: Histologically unremarkable squamous epithelium. Negative for intraepithelial eosinophilia. [facility] 11/01/2024 1205 Local . 01 Comment: Immunohistochemistry for Helicobacter organisms is performed on block A1 and is negative. . - Technical Note: The immunohistochemical stains reported were performed with appropriately staining controls at [facility] ([address], [facility] [address]). This test was developed and performance characteristics validated by [facility]. It has not been cleared or approved by the Food and Drug Administration. . 01 Electronically signed: . Laura Diego DO, Pathologist NPI- [id number] . 01 Gross description: . A. Received in formalin with two identifiers and duodenal biopsy, is a single mckeon soft tissue fragment 0.3 cm in greatest dimension. Submitted in cassette A1. B. Received in formalin with two identifiers and antral biopsy, is a single mckeon soft tissue fragment 0.3 cm in greatest dimension. Submitted in cassette B1. C. Received in formalin with two identifiers and fundus of stomach, is a single mckeon soft tissue fragment 0.4 cm in greatest dimension. Submitted in cassette C1. D. Received in formalin with two identifiers and esophageal biopsy distal, is a single mckeon soft tissue fragment 0.2 cm in greatest dimension. Submitted in cassette D1. E. Received in formalin with two identifiers and esophageal bx, are two mckeon soft tissue fragments 0.4 and 0.4 cm in greatest dimension. Submitted in cassette E1. ([id number]) /MERCEDEZ 10/28/2024 0630 Local . 01 Pathologist provided ICD-10: E66.812 . 01 CPT . 682407, 641049, 841491, 400038, 138428, [id number] Specimen Comment: A courtesy copy of this report has been sent to [phone] Performed at: [address] [id number] MD Dony Alexandre MD Phone: [phone]
[2024-10-25] MEDS: PANTOPRAZOLE 40 MG VIAL IV ×2 (08:10→20:43)
[2024-10-25] MEDS: INSULIN LISPRO 100 UNIT/ML 3ML VIAL SUBCUT ×3 (08:10→17:39)
[2024-10-25] MEDS: FAMOTIDINE 20 MG/2 ML VIAL IV ×2 (08:10→20:43)
[2024-10-25 08:11] LABS: Hematocrit 36.6 % (36-46); Hemoglobin 12.3 g/dL (12.0-16.0); Mean Corpuscular HGB Conc 33.7 % (30-36); Mean Corpuscular Hemoglobin 27.4 PG (26-34); Mean Corpuscular Volume 81.1 fL (80-100); Platelet Count 276 X10^3/uL (150-400); Red Blood Cell Count 4.51 X10^6/uL (4.0-5.2); Red Cell Distribution Width 15.5 % (11.6-14.8); White Blood Cell Count 7.3 X10^3/uL (4.5-11.0)
[2024-10-25 08:44] LABS: Calcium 8.7 mg/dL (8.4-10.2); Carbon Dioxide 16 mmol/L (22-32); Chloride 106 mmol/L (98-107); Estimated Glomerular Filt Rate > 60 mL/min (>60); Glucose 173 mg/dL (70-99); HEMOLYSIS 17 (0-50); Potassium 3.2 mmol/L (3.4-5.1); Sodium 136 mmol/L (137-145)
[2024-10-25 08:45] LABS: BUN Creatinine Ratio 3.5 (6-22); Blood Urea Nitrogen < 2 mg/dL (7-17)
[2024-10-25] MEDS: LACTATED RINGERS 1,000 ML 42 ML IV (12:02)
--- NOTE | 2024-10-25 12:17 | PM.OP.EGD ---
Operative Date/Time/Diagnoses Date of procedure: 10/25/24 Time of procedure: 12:51 Pre-op diagnosis: Dysphagia Post-op diagnosis: same Procedure & Clinicians Study performed: Esophagogastroduodenoscopy Same procedure as scheduled: Yes Surgeon: Evan Zelaya Procedure Notes Procedure in detail: Surgeon: Evan Zelaya MD Anesthesia: Gretel Parrish CRNA A timeout was performed. A bite blocked was placed. The patient was positioned in the left lateral decubitus position. Anesthesia was administered. The endoscope was inserted through the bite block and passed through the esophagus and stomach and into the duodenum. The duodenal mucosa appeared normal however random biopsies were taken with cold forceps. The scope was withdrawn into the stomach. There were no obvious ulcers or gastritis in the distal stomach however random biopsies were taken from the antrum with cold forceps. The scope was retroflexed and no hiatal hernia was seen. There was however punctate bleeding from the mucosa of the fundus and biopsies were taken with the cold forceps.. The scope was withdrawn into the esophagus and no obvious stricture was seen. The esophageal mucosa appeared grossly normal however random biopsies were taken from the distal and mid esophagus with cold forceps. The scope was withdrawn. The patient was awakened and brought to recovery. Sedation time: 9 minutes Findings: Punctate bleeding in the fundus Post-procedure Disposition: PACU
--- NOTE | 2024-10-25 12:17 | PM.PN.IH.1 ---
Subjective Subjective Date Patient Seen: 10/25/24 Time Patient Seen: 12:18 Interval history: No changes since yesterday. Exam Vital Signs (past 8 hours): - 10/25/24 08:00 Temperature 97.6 F Pulse Rate 89 Respiratory Rate 16 Blood Pressure 110/67 Pulse Oximetry 98 Oxygen Flow Rate 0 Oxygen Delivery Method Room Air Oxygen Flow Rate 0 Const General: No acute distress Objective Labs 10/25/24 08:00 10/25/24 08:00 Labs: Laboratory Results - last 24 hr 10/25/24 08:00 WBC 7.3 RBC 4.51 Hgb 12.3 Hct 36.6 MCV 81.1 MCH 27.4 MCHC 33.7 RDW 15.5 H Plt Count 276 Sodium 136 L Potassium 3.2 L Chloride 106 Carbon Dioxide 16 L BUN < 2 L Creatinine 0.57 Estimated GFR > 60 BUN/Creatinine Ratio 3.5 L Glucose 173 H Calcium 8.7 PFSH Medical History Obesity Type 2 diabetes mellitus with insulin therapy Social History household members: family Smoking Status: Never smoker Assessment & Plan Assessment and plan (1) Dysphagia: Qualifiers: Dysphagia type: esophageal phase Qualified Code(s): R13.19 - Other dysphagia Status: Acute Plan EGD Time-Based Coding :: [TOTAL MINUTES] spent with patient and on the chart (including review of chart, obtaining history, exam, reviewing outside data, placing orders, documenting exam and treatment plan, and counseling patient) on [DATE]. Quality VTE Deep Vein Thrombosis/Pulmonary Embolism Present on Admission: No PROFEE Car Ferry Master Document charge(s): No
--- NOTE | 2024-10-25 14:24 | DIET.CONS ---
Addendum entered by Dolores Trujillo 10/25/24 15:42: RN notes indicate wounds. Would rec prioritizing protein intake once NPO status changes. Will continue to monitor. Original Note: Dietary Consultation Note Admission Date: 10/23/2024 21:11 Assessment: 28 y/o F admitted with difficulty swallowing and PMH of IDDMII, PCOS. ED evaluation indicating DKA. Reports PMH of DM since age 13, 2009 with DKA presentation. Treated with Metformin and MDI. Has not been taking insulin or Metformin x 2-3 weeks. Denies any BG over 220mg/dl. Reports [id number] and through the day up to 213mg/dl. Not wearing CGM lately. Sees Dr. Davenport at [facility]. States they have discussed the potential for GABRIELLE diagnosis. States they have had brief discussions about insulin pump therapy, which she is interested in. Saw a DM educator at time of diagnosis, none since. Endorses limited intake x 30 days due to fear of choking with swallowing issues. Limited to sips of thin liquids as even ONS caused the feeling of food stuck in her esophagus per report. MUSHROOM LABORER and GI consult completed with EGD scheduled this afternoon. Endorses 8# of wt loss over one month, 4% loss (not significant). Home insulin dosinu basal daily 8u ac bolus with 1:25 correction starting at 125mg/dl Ht: 149.86 cm Wt: 88.5 kg BMI: 39.4 Last BM: 10/18/24 (10/24/24 00:15) MNA: 4 Gabo Score: 19 Diet: 10/25/24 Dinner Dysphagia Diet Diet Modifications: diabetic Food Texture: Level 7 - Regular Liquid Consistency: Level 0 - Thin Labs: RBC 4.51 X10^6/uL (4.0-5.2) 10/25/24 08:00 Hgb 12.3 g/dL (12.0-16.0) 10/25/24 08:00 Hct 36.6 % (36-46) 10/25/24 08:00 Creatinine 0.57 mg/dL (0.52-1.04) 10/25/24 08:00 Hemoglobin A1c 7.5 % (4.0-6.0) H 10/24/24 05:00 Nutrition Diagnosis: Predicated inadequate energy intake r/t limited ability to swallow aeb pt report and 8# wt loss over one month; Altered nutrition related lab value r/t endocrine dysfunction aeb hgA1c of 7.5% Interventions: 1. Discussed plan for OP diabetes care and requested referral to program 2. Provided OP DSME contact info 3. Discussed pt goals for DM care 4. Encouraged Cpeptide labs-- messaged hospitalist Nutrition rx: CHO 45g per meal Monitoring/Evaluations: After EGD can evaluate PO. RD f/u in 3-5 days or sooner prn. Electronically Signed by: Dolores Trujillo 10/25/24 14:24 Clinical Dietitian [address] [address]
--- NOTE | 2024-10-25 14:26 | DIET.CONS2 ---
Dietary Inpatient Consultation Note Admission Date: 10/23/2024 21:11 DM educator, Dolores Trujillo, met with pt at bedside to complete consultation. Note pending. Diet: 10/25/24 Dinner Dysphagia Diet Diet Modifications: diabetic Food Texture: Level 7 - Regular Liquid Consistency: Level 0 - Thin Electronically Signed by: Kat Hinds 10/25/24 14:26 Clinical Dietitian [address] [address]
--- NOTE | 2024-10-25 15:07 | CM.DANOTE ---
Initial DCP Assessment Visit Note Reviewed EMR and team rounds for status updates. Met with pt and her family at bedside to introduce self and role. Pt was found to be somnolnet, anxious, however was able to share her concerns and fear of choking on food/fluids, and worried now that she knows that she had some patchy/bleeding areas seen in her throat during the endoscopy procedure earlier today. She resides with her parents in their home in [facility]. Family will transport at d/c, no anticipated CM d/c needs identified at this time. Payor: [employer] PCP: Hailey Gardner Pt is a 28 year-old F with rivera hx of type II diabetes, she presented to the ED via family vehicle with c/o having persistent swallowing difficulties for the last month, despite having presented to an outside hospital several times during this time with no clear etiology for why this is happening. Pt shares that she hasn't been able to eat or drink for a month, other than small sips of water, due to choking. She has a hx of anxiety disorder which is now exacerbated with her choking fears and food aversion. SEISMIC COMPUTER did an assessment today, and indicated that there clearly seems to be an esophogeal component to her swallow challenge,however again was unable to determine the cause. Pt tx plan is unclear as to next steps, she will be speaking with Dr. Zelaya later this afternoon to determine if there are any other inpt eval options, or if she will continue to need to f/u outpatient with a more thorough GI provider. DCP will continue to follow and assist with any final d/c assistance or resource needs. Discharge Planning/Care Management CM Discharge Assessment Start: 10/24/24 00:15 Freq: Status: Active Protocol: Document 10/25/24 15:05 DPL (Rec: 10/25/24 15:06 DPL [id number]) Discharge Planning Assessment Assigned Roll Cleaner JOHANA Gallegos Advance Directives? No Advance Directives on File No History Provided By Patient,Medical Record Prior Living Arrangements House Household Members family Type of transporation used prior to Drives own vehicle admit Independent with ADL's Yes Is patient alert and oriented? Yes Caregiver for Another No Comment N/A Comment OP GI eval and tx Barriers to Discharge No Discharge Plan Home Transportation Arrangement Family Referrals Initiated None needed Whiteboard Updated in Patient Room with Yes name and ext. # of Roll Cleaner Review Status In Process Please Provide Date Initial DC 10/25/24 Assessment Was Performed
--- NOTE | 2024-10-25 15:16 | PC.WOUNDPHOT ---
Wound photos were taken on 10/24/24
--- NOTE | 2024-10-25 17:30 | PM.CN ---
History of Present Illness Consult details Date Patient Seen: 10/25/24 Time Patient Seen: 17:00 Chief complaint: Difficulty swallowing, unable to take diabetic rx Narrative: The patient is a 28-year-old female with obesity and diabetes who was admitted to the hospital with DKA and dysphagia. She has a several year history of having hidradenitis suppurativa involving each axilla and along the inframammary folds on each side. She is currently having pain and drainage from the right axilla and has an open area beneath her right breast. She has tried taking doxycycline in the past however this offered very little benefit. She denies having any fever or chills. The patient reports that she is unable to take pills because of her dysphagia. Meds Home Medications and Allergies Home Medications Medication Instructions Recorded Confirmed Type insulin glargine 100 unit/mL 20 unit SQ HS ##0 02/07/12 10/24/24 History subcutaneous solution (Lantus U-100 Insulin) famotidine 40 mg/5 mL (8 mg/mL) 40 mg PO BID 10/24/24 10/24/24 History oral suspension insulin aspart U-100 100 unit/mL See Rx Instructions .Route .COMPLEX 10/24/24 10/24/24 History (3 mL) subcutaneous pen (Novolog FlexPen U-100 Insulin aspart) metformin 500 mg/5 mL oral solution See Rx Instructions .Route .COMPLEX 10/24/24 10/24/24 History Allergies Allergy/AdvReac Type Severity Reaction Status Date / Time oxycodone Allergy Severe Hallucinating, Verified 07/18/23 14:42 SOB, panic attacks trospium Allergy Severe Anaphylaxis Verified 07/18/23 14:42 adhesive Allergy Verified 10/23/24 16:08 Peaches Allergy Uncoded 10/24/24 16:17 Review of Systems Gastrointestinal Comments: Dysphagia Integumentary/Breasts Comments: Open sores draining purulent fluid Exam Vital Signs (past 8 hours): - 10/25/24 12:56 10/25/24 13:01 10/25/24 13:08 Temperature 97 F L 98 F Pulse Rate 112 H 114 H 100 H Respiratory Rate 14 15 25 H Blood Pressure 106/59 L 99/53 L 101/58 L Pulse Oximetry 97 99 98 Oxygen Delivery Method Room Air Room Air Room Air Oxygen Flow Rate 10/25/24 13:30 Temperature 97.8 F Pulse Rate 83 Respiratory Rate 16 Blood Pressure 102/55 L Pulse Oximetry 99 Oxygen Delivery Method Oxygen Flow Rate 0 Oxygen Delivery Method Room Air Oxygen Flow Rate 0 Narrative Exam Narrative: Obese female who is alert and oriented and in no apparent distress Skin Other: Hidradenitis involving each axilla with acute inflammation and tenderness in the right axilla, small open area inferior right breast Objective ECG Impression: Hidradenitis suppurativa involving axilla and both breasts Labs 10/25/24 08:00 10/25/24 08:00 Labs: Laboratory Results - last 24 hr 10/25/24 08:00 WBC 7.3 RBC 4.51 Hgb 12.3 Hct 36.6 MCV 81.1 MCH 27.4 MCHC 33.7 RDW 15.5 H Plt Count 276 Sodium 136 L Potassium 3.2 L Chloride 106 Carbon Dioxide 16 L BUN < 2 L Creatinine 0.57 Estimated GFR > 60 BUN/Creatinine Ratio 3.5 L Glucose 173 H Calcium 8.7 PFSH Medical History Obesity Type 2 diabetes mellitus with insulin therapy Social History household members: family Tobacco & Substance Use Smoking Status: Never smoker Assessment & Plan Assessment and plan (1) Hidradenitis suppurativa: Status: Acute Assessment & Plan narrative: The patient has hidradenitis with acute inflammation tenderness in the right axilla. Plan to start Bactrim elixir b.i.d. and paint the area with Betadine twice daily and allow to air dry. Daily application of Cleocin cream has also been shown to be helpful to reduce the number of flare ups. Time-Based Coding :: [45 MINUTES] spent with patient and on the chart (including review of chart, obtaining history, exam, reviewing outside data, placing orders, documenting exam and treatment plan, and counseling patient) on [10/25/24].
[2024-10-25 18:14] LABS: Carbon Dioxide 19 mmol/L (22-32); Chloride 104 mmol/L (98-107); Estimated Glomerular Filt Rate > 60 mL/min (>60); Glucose 140 mg/dL (70-99); HEMOLYSIS < 15 (0-50); Potassium 2.9 mmol/L (3.4-5.1); Sodium 138 mmol/L (137-145)
[2024-10-25 18:15] LABS: BUN Creatinine Ratio 3.7 (6-22); Blood Urea Nitrogen < 2 mg/dL (7-17)
--- NOTE | 2024-10-25 18:24 | PM.PN.1 ---
Subjective Subjective Interval history: 28 year old female admitted with dysphagia. She complains of feeling like her food is getting stuck. EGD today was largely unremarkable and non-contributory toward her symptoms but was noted to have punctate bleeding from her gastric fundus. Biopsies were taken. Her insulin was stopped yesterday, however will resume half usual home dose and monitor overnight to see if improvement in acidosis. Exam Vital Signs (past 8 hours): - 10/25/24 12:56 10/25/24 13:01 10/25/24 13:08 Temperature 97 F L 98 F Pulse Rate 112 H 114 H 100 H Respiratory Rate 14 15 25 H Blood Pressure 106/59 L 99/53 L 101/58 L Pulse Oximetry 97 99 98 Oxygen Delivery Method Room Air Room Air Room Air Oxygen Flow Rate 10/25/24 13:30 Temperature 97.8 F Pulse Rate 83 Respiratory Rate 16 Blood Pressure 102/55 L Pulse Oximetry 99 Oxygen Delivery Method Oxygen Flow Rate 0 Oxygen Delivery Method Room Air Oxygen Flow Rate 0 Narrative Exam Narrative: NAD, alert and oriented, fluent speech, calm. Normocephalic skull, EOMI, anicteric sclera, symmetric pupils. Oropharynx unremarkable, no droop. Neck supple, midline trachea, no adenopathy. Lungs clear, normal rate and effort. Heart regular, no murmur gallop or rub. Abdomen is soft, non distended and non tender. Extremities are free of edema. Skin is free of rash or lesions. Joints are not swollen or deformed. Judgment appears to be normal. Objective Labs 10/25/24 08:00 10/25/24 17:56 Labs: Laboratory Results - last 24 hr 10/25/24 10/25/24 08:00 17:56 WBC 7.3 RBC 4.51 Hgb 12.3 Hct 36.6 MCV 81.1 MCH 27.4 MCHC 33.7 RDW 15.5 H Plt Count 276 Sodium 136 L 138 Potassium 3.2 L 2.9 L Chloride 106 104 Carbon Dioxide 16 L 19 L BUN < 2 L < 2 L Creatinine 0.57 0.54 Estimated GFR > 60 > 60 BUN/Creatinine Ratio 3.5 L 3.7 L Glucose 173 H 140 H Calcium 8.7 9.0 PFSH Medical History Obesity Type 2 diabetes mellitus with insulin therapy Social History household members: family Smoking Status: Never smoker Assessment & Plan Assessment & Plan narrative: DKA,improved unclear why insulin was fully withheld. repeat BMP this afternoon, if no recurrent DKA restart half home dose of lantus. Monitor overnight for hypoglycemia given decreased PO intake. Dysphagia, active. - EGD with fundal punctate bleeding, but no severe esophagitis or stricture noted. - recommend outpatient GI follow up with possible manometry, consider gastrograffin study as well. IDDMT2, uncontrolled and active. - takes metformin, Lantus and Novolog at home. Resume 1/2 usual dose of lantus, continue sliding scale. - A1C pending Anxiety, stable. - Xanax prn Plan: -restart lantus this evening, monitor for hypoglycemia overnight. Unclear cause of dysphagia but discussed with surgery and next step likely outpatient GI for further evaluation. -correctional lispro. -A1c 7.5% -PPI IV Q12 for 24 hours then transition to PO. -dietary consult, consider calorie count, likely need to add ensure clear. Possible discharge home tomorrow with outpatient GI follow up. DVT prophylaxis - SCDs GI prophylaxis - Pepcid Time-Based Coding :: [TOTAL MINUTES] spent with patient and on the chart (including review of chart, obtaining history, exam, reviewing outside data, placing orders, documenting exam and treatment plan, and counseling patient) on [DATE]. Quality VTE Deep Vein Thrombosis/Pulmonary Embolism Present on Admission: No
[2024-10-25] MEDS: POTASSIUM CHLORIDE IN WATER 10 MEQ/100 ML PIGGYBACK 100 MEQ IV ×2 (18:54→23:56)
[2024-10-25] MEDS: INSULIN GLARGINE 100 UNIT/ML 3ML PEN 10 UNIT SUBCUT (21:18)
[2024-10-26 00:52] VITALS: BP 126/74; PULSE 86; RESP 19; TEMP 36.6; O2SAT 100
[2024-10-26] MEDS: POTASSIUM CHLORIDE IN WATER 10 MEQ/100 ML PIGGYBACK 100 MEQ IV ×2 (01:10→02:29)
[2024-10-26 04:00] VITALS: BP 113/48; PULSE 98; RESP 18; TEMP 36.4; O2SAT 98
[2024-10-26 05:31] LABS: Calcium 8.7 mg/dL (8.4-10.2); Carbon Dioxide 18 mmol/L (22-32); Chloride 106 mmol/L (98-107); Estimated Glomerular Filt Rate > 60 mL/min (>60); Glucose 139 mg/dL (70-99); HEMOLYSIS < 15 (0-50); Potassium 3.3 mmol/L (3.4-5.1); Sodium 135 mmol/L (137-145)
[2024-10-26 05:32] LABS: BUN Creatinine Ratio 3.8 (6-22); Blood Urea Nitrogen < 2 mg/dL (7-17)
[2024-10-26 08:00] VITALS: BP 103/64; PULSE 99; RESP 12; TEMP 36.6; O2SAT 100
[2024-10-26] MEDS: PANTOPRAZOLE 40 MG VIAL IV (09:37)
[2024-10-26] MEDS: FAMOTIDINE 20 MG/2 ML VIAL IV (09:37)
--- NOTE | 2024-10-26 10:34 | CM.DPNOTE ---
DCP Continued: Reviewed EMR and team rounds for pt?s medical status. Per hospitalist, patient could be cleared for discharge today as their insulin has been restarted and would just require outpatient GI follow up which he will place referral. Plan: Anticipating dc home with family on 10/26 or when medically cleared. CM Team will continue to follow for coordination of discharge plans. HO Chávez
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
[2024-10-26] MEDS: POTASSIUM CHLORIDE 20 MEQ/15 ML UDC 40 MEQ PO (13:35)
--- NOTE | 2024-10-26 14:07 | DIET.PN1 ---
Dietary Progress Note Assessment: 28 y/o F admitted with difficulty swallowing and PMH of IDDMII, PCOS. ED evaluation indicating DKA. Reports wounds under breasts. Has tried ONS in the past, but texture still difficult for her. Mostly unremarkable findings with EGD. Plans for OP follow-up with GI. Ht: 149.86 cm Wt: 88.5 kg BMI: 39.4 Nutritional BW: 54.5kg Last BM: 10/18/24 (10/24/24 00:15) MNA: 4 Gabo Score: 18 Diet: 10/25/24 Dinner Carbohydrate Consistent Diet Diet Modifications: diet per [employer] Carbohydrate level: Medium (3 CHO) Reflex DM orders: No Food Texture: Level 7 - Regular Liquid Consistency: Level 0 - Thin Labs: RBC 4.51 X10^6/uL (4.0-5.2) 10/25/24 08:00 Hgb 12.3 g/dL (12.0-16.0) 10/25/24 08:00 Hct 36.6 % (36-46) 10/25/24 08:00 Creatinine 0.53 mg/dL (0.52-1.04) 10/26/24 04:41 Hemoglobin A1c 7.5 % (4.0-6.0) H 10/24/24 05:00 Nutrition Diagnosis: Predicated inadequate energy intake r/t limited ability to swallow aeb pt report and 8# wt loss over one month; Altered nutrition related lab value r/t endocrine dysfunction aeb hgA1c of 7.5% Interventions: 1. Reviewed ONS options and nutrition rx 2. Encouraged thinning ONS prn to texture she feels comfortable with swallowing 3.Provided ONS samples to try, including Ensure MAX and Ensure PLUS Nutrition rx: CHO 45g per meal; 1200-1600kcal (24-30kcal/kg) 65-82g PRO (1.2-1.5g/kg) Monitoring/Evaluations: D/c planned for today if medically cleared. Encouraged OP RD CDCES follow-up. Pt agreed to this plan. Electronically Signed by: Dolores Trujillo 10/26/24 14:07 Clinical Dietitian [address] [id number]
--- NOTE | 2024-10-26 16:03 | PC.NURSE ---
Pt independent in room. Denies discomfort, in to see; orders for D/C received. SL D/C intact. Home instructions given w/ understanding. Transportation arrived; pt escorted ambulatory w/ staff to waiting vehicle. ' D/C in stable status.
== END 2024-10-26 15:46 | disposition home or self-care (01) | DRG 420 ==
LOC: ED 19:00 → AC 21:11
PROVIDERS: Emergency Medicine; Hospitalist; Internal Medicine; Surgery; Admitting Provider Internal Medicine; Emergency Provider Student in an Organized Health Care Education/Training Program; Family Provider Nurse Practitioner Family; PCP Nurse Practitioner Family; Referring Provider Student in an Organized Health Care Education/Training Program; Visit Provider Internal Medicine
PROC: 0DJ08ZZ Inspection of Upper Intestinal Tract, Via Natural or Artificial Opening Endoscopic (ICD-10-PCS; principal; 2024-10-25 09:00)
DX: E11.10 Type 2 diabetes mellitus with ketoacidosis without coma (principal); E66.01 Morbid (severe) obesity due to excess calories; L73.2 Hidradenitis suppurativa; F41.9 Anxiety disorder, unspecified; T17.928A Food in respiratory tract, part unspecified causing other injury, initial encounter; R13.19 Other dysphagia; W44.F3XA Food entering into or through a natural orifice, initial encounter; Z68.39 Body mass index [BMI] 39.0-39.9, adult; Z79.4 Long term (current) use of insulin; Z79.84 Long term (current) use of oral hypoglycemic drugs
CPT/HCPCS: 36415; 43239; 74230; 80048; 80053; 81001; 81025; 82009; 82805; 82962; 83036; 85025; 85027; 92610; 92611; 96365; 96366; 96367; 96368; 96375; 99232; 99284; 99291; J1815; J2405; J2470; J2704; J2765

== ENCOUNTER 2024-11-18 07:31 | Inpatient (IN) | payer OTHER, SELFPAY ==
[2024-10-24 00:26] VITALS: BMI 39.4
[2024-11-18] VITALS (19 sets, daily range): BP systolic 107–156; BP diastolic 56–74; PULSE 71–127; RESP 15–23; TEMP 35.8–36.9; O2SAT 96–100; BMI 34.7
--- NOTE | 2024-11-18 07:55 | ED.ABDPAIN ---
HPI - Abdominal Pain General Chief Complaint: Abdominal Pain Stated Complaint: Severe acid reflux and gurd; vomiting blood Time Seen by Provider: 11/18/24 07:33 Source: patient Mode of arrival: Ambulatory History of Present Illness HPI narrative: 29-year-old female history of type 2 diabetes admitted back a few months ago for difficulty swallowing solids with suspected esophageal dysmotility disorder with EGD and barium swallow completed presents with continued difficulty swallowing along with multiple bouts of nausea and vomiting daily that prohibits her from eating and drinking. As such she also states she has not been able to take her insulin correctly to manage her diabetes. She was supposed to have an outpatient manometry study done at [facility] but apparently the GI MD did not proceed with the procedure. Patient is actively vomiting in the room at time of examination. Other than what is stated 14 point review of system is negative. Related Data Home Medications ?Medication ?Instructions ?Recorded ?Confirmed famotidine 40 mg/5 mL (8 mg/mL) 40 mg PO BID 10/24/24 10/24/24 oral suspension insulin aspart U-100 100 unit/mL See Rx Instructions .Route .COMPLEX 10/24/24 10/24/24 (3 mL) subcutaneous pen (Novolog FlexPen U-100 Insulin aspart) Previous Rx's ?Medication ?Instructions ?Recorded insulin glargine 100 unit/mL 10 unit (0.1 mL) SQ HS #3 mL 10/26/24 subcutaneous solution (Lantus U-100 Insulin) Allergies Allergy/AdvReac Type Severity Reaction Status Date / Time oxycodone Allergy Severe Hallucinating, Verified 11/18/24 07:43 SOB, panic attacks trospium Allergy Severe Anaphylaxis Verified 11/18/24 07:43 adhesive Allergy Verified 11/18/24 07:43 Peaches Allergy Uncoded 11/18/24 07:43 Review of Systems Review of Systems ROS Unobtainable: All systems reviewed & are unremarkable except as noted in HPI and below Patient History Medical History Obesity Type 2 diabetes mellitus with insulin therapy Social History household members: family Smoking Status: Never smoker Smoking Status: Never smoker Exam Narrative Exam Narrative: GENERAL: [29] year old patient appears stated age. Well-developed patient, in mild distress. HEAD: Atraumatic. Normocephalic. EYES: Pupils equal round and reactive. Extraocular motions intact. No scleral icterus. No injection or drainage. ENT: Nose without bleeding, purulent drainage. Throat without erythema, tonsillar hypertrophy or exudate. Airway patent. NECK: Trachea midline. Non tender CARDIOVASCULAR: Tachycardic Regular rate and rhythm without murmurs, gallops, or rubs. RESPIRATORY: Clear to auscultation. Breath sounds equal bilaterally. No wheezes, rales, or rhonchi. GASTROINTESTINAL: Abdomen soft epigastric region tender to palpate but no rebound rigidity or guarding, nondistended. EXTREMITIES: No edema or joint tenderness. BACK: Nontender without deformity or crepitance. No flank tenderness. NEURO: AOx3. GCS 15 nonfocal neuro exam SKIN: No rash or erythema of visible areas Initial Vital Signs Initial Vital Signs: Vital Signs Temperature 98.5 F 11/18/24 07:43 Pulse Rate 127 H 11/18/24 07:43 Respiratory Rate 18 11/18/24 07:43 Blood Pressure 156/70 H 11/18/24 07:43 Pulse Oximetry 100 11/18/24 07:43 Oxygen Delivery Method Room Air 11/18/24 07:43 Course Orders Ordered: ED Orders 11/18/24 07:58 Complete Blood Count AUTO DIFF Stat Comprehensive Metabolic Panel Stat Lipase Stat 11/18/24 08:01 Urine Drug Screen, Rapid Stat Urine Microscopic Stat 11/18/24 08:02 CT abdomen pelvis w con Stat 11/18/24 08:03 Blood Culture Stat Lactate (Lactic Acid) Stat VBG [Venous Blood Gas] STAT 11/18/24 08:13 Venous Blood Gas Routine Discontinued Medications Metoclopramide HCl (Metoclopramide 10 Mg/2 Ml Inj) 10 mg IV NOW ONE Stop: 11/18/24 08:02 Pantoprazole Sodium (Pantoprazole 40 Mg Vial) 40 mg IV NOW ONE Stop: 11/18/24 08:04 Vital Signs Vital signs: Vital Signs - 8 hr 11/18/24 07:43 Temperature 98.5 F Pulse Rate 127 H Respiratory Rate 18 Blood Pressure 156/70 H Pulse Oximetry 100 Oxygen Delivery Method Room Air MDM - Abdominal Pain Lab Data 11/18/24 07:58 11/18/24 07:58 Labs: Lab Results 11/18/24 11/18/24 Range/Units 07:58 08:13 WBC 7.6 (4.5-11.0) X10^3/uL RBC 5.66 H (4.0-5.2) X10^6/uL Hgb 15.5 (12.0-16.0) g/dL Hct 46.2 H (36-46) % MCV 81.6 (80-100) fL MCH 27.3 (26-34) PG MCHC 33.5 (30-36) % RDW 15.9 H (11.6-14.8) % Plt Count 112 L (150-400) X10^3/uL Neut % (Auto) 64.1 (50-75) % Lymph % (Auto) 22.2 L (25-40) % [place]w % (Auto) 12.5 (3-14) % Eos % (Auto) 0.9 L (2-4) % Baso % (Auto) 0.3 (0-2) % Neut # (Auto) 4800 (0836-7404) /uL Lymph # (Auto) 1700 (2643-4585) /uL [place] # (Auto) 900 (0-900) /uL Eos # (Auto) 100 (0-450) /uL Baso # (Auto) 0 (0-100) /uL VBG pH 7.36 (7.33-7.43) VBG pCO2 38.4 L (45-50) mmHg VBG pO2 32 L (35-45) mmHg VBG HCO3 22 L (24-28) mmol/L VBG Total CO2 21 L (24-29) mmol/L VBG O2 Saturation 60 L (70-75) % VBG Base Excess -3.1 L (0-4) mmol/L FiO2 % 21.0 % % Sodium 135 L (137-145) mmol/L Potassium 3.6 (3.4-5.1) mmol/L Chloride 97 L (98-107) mmol/L Carbon Dioxide 18 L (22-32) mmol/L BUN < 2 L (7-17) mg/dL Creatinine 0.62 (0.52-1.04) mg/dL Estimated GFR > 60 (>60) mL/min BUN/Creatinine Ratio 3.2 L (6-22) Glucose 257 H (70-99) mg/dL Calcium 9.4 (8.4-10.2) mg/dL Total Bilirubin 1.1 (0.2-1.3) mg/dL AST 34 (14-36) IU/L ALT 19 (<35) IU/L Alkaline Phosphatase 90 (38-126) U/L Total Protein 8.7 H (6.3-8.2) g/dL Albumin 4.8 (3.5-5.0) g/dL Globulin 3.9 (1.7-4.1) g/dL Albumin/Globulin Ratio 1.2 (1.0-2.8) Imaging Data CT scan - abdomen/pelvis: Radiologist's Impression: [address] [address] [address] Scan Report Signed Patient: Faith Rojo MR#: [id number] : 1995 Acct:[id number] Age/Sex: 29 / F Date of Service: 11/18/24 Loc: ED Accession Number: [id number] Procedure: CT abdomen pelvis w con Ordering Provider: Pipo Salas D.O. PROCEDURE: CT ABDOMEN PELVIS W CON INDICATIONS: abd pain n/v TECHNIQUE: After the administration of intravenous contrast, axial sections acquired from the lung bases to the pubic symphysis. Coronal and sagittal reformats were performed. For radiation dose reduction, the following was used: automated exposure control, adjustment of mA and/or kV according to patient size. COMPARISON: None. FINDINGS: Image quality: Diagnostic. Lower Chest: No significant findings. BDOMEN: Liver: No solid mass. There is an area of focal fatty infiltration at the ligamentum teres. Gallbladder: No radiopaque gallstones or wall thickening. Biliary ducts: No biliary dilation. Pancreas: The pancreas is mildly edematous and demonstrates mesenteric inflammation and free fluid about the head and body. There is no focal mass. No ductal dilation. Spleen: Size is within normal limits. Adrenal Glands: No adrenal nodules. Kidneys and Ureters: No hydronephrosis. No solid mass. No complex renal cystic lesion which requires follow up. A small amount of hyperattenuating material is present within the renal collecting system, possibly secondary to a previous CT although none is available for review. Stomach and Bowel: Normal colonic caliber, without significant wall thickening. Oral contrast is seen within the rectum. Peritoneum: No abnormal intraperitoneal fluid. No free air. Ventral Wall: No significant ventral hernia. Abdominal Nodes: No retroperitoneal or mesenteric adenopathy by size criteria. Vessels: Aorta and inferior vena cava are normal in size. PELVIS: Pelvic Organs: Unremarkable. Bladder: No bladder wall thickening, accounting for underdistention. Pelvic Nodes: No enlarged lymph nodes. Miscellaneous: No inguinal hernias are seen. Bones: No aggressive osseous abnormality. IMPRESSION: Acute uncomplicated pancreatitis. MDM Narrative Medical decision making narrative: All lab work, vital signs, nurse triage note, medication list, previous ER visits, and all imaging studies reviewed. CT scan showed acute uncomplicated diverticulitis. Lipase 2392, white count normal, platelet 112, VBG pH 7.36 CO2 38 point bicarb 22 base excess -3.1, , sodium 135 , potassium 3.6 , chloride 97 CO2 18 anion gap of 23. 6, BUN of 2, creatinine 0.62, glucose of 257, ketones 5.19. Patient given normal saline 1 L bolus, 10 mg of Reglan IV and 30 of Toradol IV. Differential diagnosis includes cholecystitis, pancreatitis, DKA, diverticulitis, constipation, kidney stone, kidney infection, gastroparesis. Case discussed with Dr. Blake who has graciously accepted the patient for inpatient admission Discharge Plan Departure Patient Disposition: Admitted As Inpatient Clinical Impression: Pancreatitis Qualifiers: Chronicity: acute Pancreatitis type: unspecified pancreatitis type Acute pancreatitis complication: no infection or necrosis Qualified Code(s): K85.90 - Acute pancreatitis without necrosis or infection, unspecified DKA (diabetic ketoacidosis) Qualifiers: Diabetes mellitus type: type 2 Diabetes mellitus complication detail: without coma Qualified Code(s): E11.10 - Type 2 diabetes mellitus with ketoacidosis without coma Admit Date/Time: 11/18/24 10:32 Admit Provider: Lacie Blake
--- NOTE | 2024-11-18 08:02 | DI.CT.S_ITS ---
PROCEDURE: CT ABDOMEN PELVIS W CON INDICATIONS: abd pain n/v TECHNIQUE: After the administration of intravenous contrast, axial sections acquired from the lung bases to the pubic symphysis. Coronal and sagittal reformats were performed. For radiation dose reduction, the following was used: automated exposure control, adjustment of mA and/or kV according to patient size. COMPARISON: None. FINDINGS: Image quality: Diagnostic. Lower Chest: No significant findings. ABDOMEN: Liver: No solid mass. There is an area of focal fatty infiltration at the ligamentum teres. Gallbladder: No radiopaque gallstones or wall thickening. Biliary ducts: No biliary dilation. Pancreas: The pancreas is mildly edematous and demonstrates mesenteric inflammation and free fluid about the head and body. There is no focal mass. No ductal dilation. Spleen: Size is within normal limits. Adrenal Glands: No adrenal nodules. Kidneys and Ureters: No hydronephrosis. No solid mass. No complex renal cystic lesion which requires follow up. A small amount of hyperattenuating material is present within the renal collecting system, possibly secondary to a previous CT although none is available for review. Stomach and Bowel: Normal colonic caliber, without significant wall thickening. Oral contrast is seen within the rectum. Peritoneum: No abnormal intraperitoneal fluid. No free air. Ventral Wall: No significant ventral hernia. Abdominal Nodes: No retroperitoneal or mesenteric adenopathy by size criteria. Vessels: Aorta and inferior vena cava are normal in size. PELVIS: Pelvic Organs: Unremarkable. Bladder: No bladder wall thickening, accounting for underdistention. Pelvic Nodes: No enlarged lymph nodes. Miscellaneous: No inguinal hernias are seen. Bones: No aggressive osseous abnormality. IMPRESSION: Acute uncomplicated pancreatitis. Dictated by: Shanita Doty M.D. on 11/18/2024 at 8:54 Approved by: Shanita Doty M.D. on 11/18/2024 at 8:59
[2024-11-18 08:13] LABS: Add Manual Diff / Slide Review NO; Basophils Absolute Auto 0 /uL (0-100); Basophils Percent Auto 0.3 % (0-2); Eosinophils Absolute Auto 100 /uL (0-450); Eosinophils Percent Auto 0.9 % (2-4); Hematocrit 46.2 % (36-46); Hemoglobin 15.5 g/dL (12.0-16.0); Lymphocytes Absolute Auto 1700 /uL (1100-4500); Lymphocytes Percent Auto 22.2 % (25-40); Mean Corpuscular HGB Conc 33.5 % (30-36); Mean Corpuscular Hemoglobin 27.3 PG (26-34); Mean Corpuscular Volume 81.6 fL (80-100); Monocytes Absolute Auto 900 /uL (0-900); Monocytes Percent Auto 12.5 % (3-14); Neutrophils Absolute Auto 4800 /uL (1500-7000); Neutrophils Percent Auto 64.1 % (50-75); Platelet Count 112 X10^3/uL (150-400); Red Blood Cell Count 5.66 X10^6/uL (4.0-5.2); Red Cell Distribution Width 15.9 % (11.6-14.8); White Blood Cell Count 7.6 X10^3/uL (4.5-11.0)
[2024-11-18 08:17] LABS: Base Excess VBG -3.1 mmol/L (0-4); HCO3 VBG 22 mmol/L (24-28); Oxygen Saturation VBG 60 % (70-75); PCO2 VBG 38.4 mmHg (45-50); PO2 VBG 32 mmHg (35-45); Total CO2 VBG 21 mmol/L (24-29); pH VBG 7.36 (7.33-7.43)
[2024-11-18 08:21] LABS: Alanine Aminotransferase 19 IU/L (<35); Albumin 4.8 g/dL (3.5-5.0); Albumin Globulin Ratio 1.2 (1.0-2.8); Alkaline Phosphatase 90 U/L (38-126); Aspartate Aminotransferase 34 IU/L (14-36); BUN Creatinine Ratio 3.2 (6-22); Bilirubin Total 1.1 mg/dL (0.2-1.3); Blood Urea Nitrogen < 2 mg/dL (7-17); Calcium 9.4 mg/dL (8.4-10.2); Carbon Dioxide 18 mmol/L (22-32); Chloride 97 mmol/L (98-107); Estimated Glomerular Filt Rate > 60 mL/min (>60); Globulin 3.9 g/dL (1.7-4.1); Glucose 257 mg/dL (70-99); Potassium 3.6 mmol/L (3.4-5.1); Sodium 135 mmol/L (137-145); Total Protein 8.7 g/dL (6.3-8.2)
[2024-11-18 08:28] LABS: HEMOLYSIS 155 (0-50); Lipase 2392 U/L (23-300)
[2024-11-18 08:34] LABS: UR Morphine/Opiate cutoff 300 Negative (Negative); Ur Creatinine Normal (Normal); Ur Specific Gravity Normal (Normal); Urine Amphetamines Negative (Negative); Urine Barbiturates Negative (Negative); Urine Benzodiazepines Negative (Negative); Urine Cocaine Negative (Negative); Urine MDMA Negative (Negative); Urine Methadone Negative (Negative); Urine Methamphetamines Negative (Negative); Urine Oxycodone Negative (Negative); Urine Phencyclidine Negative (Negative); Urine Tetrahydrocannabinol Negative (Negative); Urine Tricyclic Antidepressant Negative (Negative); Urine pH Normal (Normal)
[2024-11-18 08:35] LABS: Urine Volume 10mL (spun)
[2024-11-18 08:37] LABS: Bacteria Urine None Seen; Culture Indicated Urine Cult Not Indicated; RBC Urine 1-5/HPF (0-5/HPF); Squamous Epithelial Cell Urine 1-5 /HPF (0-5/HPF); WBC Urine None Seen (0-5/HPF)
[2024-11-18 08:54] LABS: Ketones (Beta-Hydroxybutyrate) 5.19 mmol/L (<0.27)
[2024-11-18] MEDS: METOCLOPRAMIDE 10 MG/2 ML INJ IV (08:56)
[2024-11-18] MEDS: SODIUM CHLORIDE 0.9% 1,000 ML 1000 ML IV (08:56)
[2024-11-18] MEDS: PANTOPRAZOLE 40 MG VIAL IV (08:56)
[2024-11-18 09:11] LABS: Lactate (Lactic Acid) 1.7 mmol/L (0.7-2.1)
[2024-11-18] MEDS: KETOROLAC 30 MG/ML VIAL INJ (09:29)
[2024-11-18] MEDS: SODIUM CHLORIDE 0.45% 1,000 ML 100 ML IV (11:55)
[2024-11-18] MEDS: HYDROMORPHONE 0.5 MG INJ IV ×2 (11:56→16:59)
[2024-11-18] MEDS: INSULIN LISPRO 100 UNIT/ML 3ML VIAL SUBCUT (12:06)
[2024-11-18] MEDS: ONDANSETRON 4 MG/2 ML INJ IV (12:13)
[2024-11-18] MEDS: METOCLOPRAMIDE 10 MG/2 ML INJ 5 MG IV (17:37)
[2024-11-18 18:07] LABS: Blood Urea Nitrogen < 2 mg/dL (7-17); Calcium 8.6 mg/dL (8.4-10.2); Carbon Dioxide 12 mmol/L (22-32); Chloride 103 mmol/L (98-107); Estimated Glomerular Filt Rate > 60 mL/min (>60); Glucose 250 mg/dL (70-99); HEMOLYSIS < 15 (0-50); Potassium 2.9 mmol/L (3.4-5.1); Sodium 134 mmol/L (137-145)
[2024-11-18] MEDS: POTASSIUM CHLORIDE IN WATER 10 MEQ/100 ML PIGGYBACK 100 MEQ IV ×3 (18:52→22:50)
[2024-11-18 19:46] LABS: Pregnancy Test Serum,Qual Negative (Negative)
[2024-11-18] MEDS: INSULIN DRIP PREMIX 100 UNIT/100 ML PLAST..BAG 7.806 UNIT IV (20:01)
[2024-11-18 20:11] LABS: Calcium 8.8 mg/dL (8.4-10.2); Carbon Dioxide 14 mmol/L (22-32); Chloride 102 mmol/L (98-107); Estimated Glomerular Filt Rate > 60 mL/min (>60); Glucose 238 mg/dL (70-99); HEMOLYSIS < 15 (0-50); Sodium 136 mmol/L (137-145)
[2024-11-18 20:12] LABS: BUN Creatinine Ratio 3.8 (6-22); Blood Urea Nitrogen 2 mg/dL (7-17)
--- NOTE | 2024-11-18 20:52 | P.HP_ITS ---
History of Present Illness History of Present Illness Chief complaint: Severe acid reflux and gurd; vomiting blood Narrative: 29-year-old female with type 2 diabetes, odynophagia, dysphagia, chronic epigastric pain, focal mild chronic inflammation of the antrum of the stomach, protein calorie malnutrition, anxiety, class 1 obesity, hidradenitis suppurativa of the axilla who presented to the emergency department with nausea, vomiting, and abdominal pain. She was previously hospitalized here from October 24, 2024 until October 26, 2024 with similar symptoms. She underwent EGD with biopsies. Ultimately, the EGD was unremarkable with the exception of a small punctate area of bleeding from the mucosa of the fundus. Random biopsies were taken with the only abnormal finding being focal mild chronic inflammation of the antrum of the stomach. Patient did follow up with [facility]. She underwent laryngoscopy which was normal. GI had a plan to perform a repeat EGD with potential esophageal dilation and sent her for a gastric emptying study. Unfortunately, her insurance would not cover it. She subsequently canceled the appointment. She had a follow-up appointment scheduled on 11/15 but evidently did not show up for that appointment. She does have a follow-up scheduled on November 27. She did request having esophageal manometry done, but that has not yet been approved or determined if it should be the next step. She reports she is continued to struggle with being able to eat. She is not taking her short-acting insulin but does intermittently take her Lantus. She states she is looked online and thinks she should be on TPN as she believes she needs to supplement her nutrition. She states that she weighed 207 several months ago and now weighs 170 lb. She states she frequently coughs up frothy phlegm which she believes is combination of mucus and stomach acid. She believes she is having silent reflux. She believes that this is giving her nausea and vomiting and believes this somehow has caused her acute pancreatitis symptoms. FORMERLY [facility], [facility] Medical History Obesity Type 2 diabetes mellitus with insulin therapy Social History household members: family Smoking Status: Never smoker Meds Home Medications and Allergies Home Medications ?Medication ?Instructions ?Recorded ?Confirmed ?Type famotidine 40 mg/5 mL (8 mg/mL) 40 mg PO BID 10/24/24 10/24/24 History oral suspension insulin aspart U-100 100 unit/mL See Rx Instructions . Route .COMPLEX 10/24/24 10/24/24 History (3 mL) subcutaneous pen (Novolog FlexPen U-100 Insulin aspart) insulin glargine 100 unit/mL 10 unit (0.1 mL) SQ HS #3 mL 10/26/24 10/24/24 Rx subcutaneous solution (Lantus U-100 Insulin) Allergies Allergy/AdvReac Type Severity Reaction Status Date / Time oxycodone Allergy Severe Hallucinating, Verified 11/18/24 07:43 SOB, panic attacks trospium Allergy Severe Anaphylaxis Verified 11/18/24 07:43 adhesive Allergy Verified 11/18/24 07:43 Peaches Allergy Uncoded 11/18/24 07:43 Review of Systems Review of Systems Narrative: All other systems were reviewed negative Exam Vital Signs (past 8 hours): Oxygen Delivery Method Room Air Oxygen Flow Rate 0 Narrative Exam Narrative: GEN: Adult female, Alert and oriented x3, no acute distress HEENT: Normocephalic, face symmetric, pupils equal round reactive to light, extraocular movements intact, sclerae anicteric, conjunctiva clear, nares patent, oropharynx reveals an intact soft and hard palate with moist mucous membranes, dentition is fair NECK: Supple, no lymphadenopathy, thyroid without enlargement or nodularity, carotids no bruits CHEST: Respiratory excursions symmetric, clear to auscultation bilaterally CV: Regular rate and rhythm, no murmurs, rubs, gallops, PMI nondisplaced ABD: Soft, moderate epigastric tenderness, nondistended, bowel sounds present in all 4 quadrants, body habitus limits exam EXTR: Warm, well perfused, no clubbing/cyanosis/edema SKIN: Warm and dry, without rash NEURO: Alert and oriented x3, grossly intact PSYCH: Mood and affect is flat, judgment and insight are appropriate Objective Labs 11/18/24 07:58 11/18/24 19:29 Labs: Laboratory Results - last 24 hr 11/18/24 11/18/24 11/18/24 07:58 08:13 08:20 WBC 7.6 RBC 5.66 H Hgb 15.5 Hct 46.2 H MCV 81.6 MCH 27.3 MCHC 33.5 RDW 15.9 H Plt Count 112 L Neut % (Auto) 64.1 Lymph % (Auto) 22.2 L [place] % (Auto) 12.5 Eos % (Auto) 0.9 L Baso % (Auto) 0.3 Neut # (Auto) 4800 Lymph # (Auto) 1700 [place] # (Auto) 900 Eos # (Auto) 100 Baso # (Auto) 0 VBG pH 7.36 VBG pCO2 38.4 L VBG pO2 32 L VBG HCO3 22 L VBG Total CO2 21 L VBG O2 Saturation 60 L VBG Base Excess -3.1 L FiO2 % 21.0 % Sodium 135 L Potassium 3.6 Chloride 97 L Carbon Dioxide 18 L BUN < 2 L Creatinine 0.62 Estimated GFR > 60 BUN/Creatinine Ratio 3.2 L Glucose 257 H Lactate Calcium 9.4 Total Bilirubin 1.1 AST 34 ALT 19 Alkaline Phosphatase 90 C-Reactive Protein 1.0 Total Protein 8.7 H Albumin 4.8 Globulin 3.9 Albumin/Globulin Ratio 1.2 Lipase 2392 H Serum , Qual Urine RBC 1-5/hpf Urine WBC None seen Ur Squamous Epith Cells 1-5 /hpf Urine Bacteria None seen Ur Culture Indicated? Cult not indicated Vol Urine Centrifuged 10ml (spun) U Opiates 300ng/mL cut Negative Ur Oxycodone Screen Negative Urine Methadone Screen Negative Ur Barbiturates Screen Negative U Tricyclic Antidepress Negative Ur Phencyclidine Scrn Negative Ur Amphetamines Screen Negative U Methamphetamines Scrn Negative Ur MDMA Scrn (Ecstasy) Negative U Benzodiazepines Scrn Negative Urine Cocaine Screen Negative U Marijuana (THC) Screen Negative Urine pH Normal Urine Specific [place] Normal Ketones Ur Creatinine Normal 11/18/24 11/18/24 11/18/24 08:39 08:45 17:51 WBC RBC Hgb Hct MCV MCH MCHC RDW Plt Count Neut % (Auto) Lymph % (Auto) [place] % (Auto) Eos % (Auto) Baso % (Auto) Neut # (Auto) Lymph # (Auto) [place] # (Auto) Eos # (Auto) Baso # (Auto) VBG pH VBG pCO2 VBG pO2 VBG HCO3 VBG Total CO2 VBG O2 Saturation VBG Base Excess FiO2 % Sodium 134 L Potassium 2.9 L Chloride 103 Carbon Dioxide 12 L BUN < 2 L Creatinine 0.50 L Estimated GFR > 60 BUN/Creatinine Ratio 4.0 L Glucose 250 H Lactate 1.7 Calcium 8.6 Total Bilirubin AST ALT Alkaline Phosphatase C-Reactive Protein Total Protein Albumin Globulin Albumin/Globulin Ratio Lipase Serum , Qual Urine RBC Urine WBC Ur Squamous Epith Cells Urine Bacteria Ur Culture Indicated? Vol Urine Centrifuged U Opiates 300ng/mL cut Ur Oxycodone Screen Urine Methadone Screen Ur Barbiturates Screen U Tricyclic Antidepress Ur Phencyclidine Scrn Ur Amphetamines Screen U Methamphetamines Scrn Ur MDMA Scrn (Ecstasy) U Benzodiazepines Scrn Urine Cocaine Screen U Marijuana (THC) Screen Urine pH Urine Specific [place] Ketones 5.19 H Ur Creatinine 11/18/24 11/18/24 19:24 19:29 WBC RBC Hgb Hct MCV MCH MCHC RDW Plt Count Neut % (Auto) Lymph % (Auto) [place] % (Auto) Eos % (Auto) Baso % (Auto) Neut # (Auto) Lymph # (Auto) [place] # (Auto) Eos # (Auto) Baso # (Auto) VBG pH VBG pCO2 VBG pO2 VBG HCO3 VBG Total CO2 VBG O2 Saturation VBG Base Excess FiO2 % Sodium 136 L Potassium 3.0 L Chloride 102 Carbon Dioxide 14 L BUN 2 L Creatinine 0.52 Estimated GFR > 60 BUN/Creatinine Ratio 3.8 L Glucose 238 H Lactate Calcium 8.8 Total Bilirubin AST ALT Alkaline Phosphatase C-Reactive Protein Total Protein Albumin Globulin Albumin/Globulin Ratio Lipase Serum , Qual Negative Urine RBC Urine WBC Ur Squamous Epith Cells Urine Bacteria Ur Culture Indicated? Vol Urine Centrifuged U Opiates 300ng/mL cut Ur Oxycodone Screen Urine Methadone Screen Ur Barbiturates Screen U Tricyclic Antidepress Ur Phencyclidine Scrn Ur Amphetamines Screen U Methamphetamines Scrn Ur MDMA Scrn (Ecstasy) U Benzodiazepines Scrn Urine Cocaine Screen U Marijuana (THC) Screen Urine pH Urine Specific [place] Ketones Ur Creatinine Assessment & Plan Assessment & Plan narrative: 1. Acute pancreatitis Patient presented with nausea, vomiting, epigastric pain. CT scan revealed acute uncomplicated pancreatitis. Lipase was elevated above 2300. She is not a significant alcohol drinker. No evidence of biliary obstruction. No gallstones. Will add a CRP to admission labs and repeat 1 for the morning. Will follow serial lipase. Will place on bowel rest with the exception of ice chips. Continue hydromorphone as needed for pain. 2. Anion gap metabolic acidosis Initial anion gap was elevated at 20. She does have positive urine ketones but a normal pH. She is insulin dependent at baseline. Repeat BMP done shortly before I assessed her showed decreasing bicarb, down from 18 to 12. Given her worsening anion gap, decreasing bicarb, and previous history of DKA, will transfer to the ICU and initiate DKA protocol. Repeat venous blood gas is pending. Will initiate insulin drip. 3. Hypokalemia Initial labs revealed a normal potassium at 3.6. Upon repeat, potassium was 2.9. Will replete with IV potassium chloride. We will follow potassium levels on labs and supplement as needed. 4. Diabetes mellitus, type 2 Will send a hemoglobin A1c. Patient has not been taking her insulin as prescribed secondary to her poor oral intake. 5. Epigastric pain and associated dysphagia/odynophagia Patient has undergone a barium swallow, EGD with biopsies, and laryngoscope. None of these were revealing as to the etiology of her present symptoms. She likely should have follow-up with Gastroenterology and consideration of esophageal dilation. Also needs a gastric emptying study to evaluate for gastroparesis as a potential etiology for her present symptoms. 6. Protein calorie malnutrition, presumed severe Discussed risks of TPN and goal of using the gut whenever possible. Advised that once her pancreatitis has resolved, she may benefit from using Glucerna for liquid nutrition benefits. If she can not do that, the next step would be time- limited tube feeds. Reviewed the significant risks of TPN and that it would be a last resort. Code status Full Prophylaxis Low Minesh score Disposition Initially admitted to the medical unit. Now transferring to intensive care. Time-Based Coding :: [TOTAL MINUTES] spent with patient and on the chart (including review of chart, obtaining history, exam, reviewing outside data, placing orders, documenting exam and treatment plan, and counseling patient) on [DATE].
[2024-11-18] MEDS: SODIUM CHLORIDE 0.9% 1,000 ML 999 ML IV (20:58)
[2024-11-18] MEDS: SODIUM CHLORIDE 0.45% 1,000 ML 250 ML IV (20:59)
[2024-11-18 21:17] LABS: Base Excess VBG -10.5 mmol/L (0-4); HCO3 VBG 17 mmol/L (24-28); Oxygen Saturation VBG 33 % (70-75); PCO2 VBG 39.6 mmHg (45-50); PO2 VBG 24 mmHg (35-45); Total CO2 VBG 16 mmol/L (24-29); pH VBG 7.23 (7.33-7.43)
[2024-11-18] MEDS: DEXTROSE 5%-0.45% NS 1,000 ML 150 ML IV (22:04)
[2024-11-18] MEDS: KETOROLAC 30 MG/ML VIAL IV (23:07)
[2024-11-18 23:23] LABS: Carbon Dioxide 16 mmol/L (22-32); Chloride 107 mmol/L (98-107); Estimated Glomerular Filt Rate > 60 mL/min (>60); Glucose 161 mg/dL (70-99); HEMOLYSIS 31 (0-50); Potassium 2.9 mmol/L (3.4-5.1); Sodium 135 mmol/L (137-145)
[2024-11-18 23:24] LABS: BUN Creatinine Ratio 3.9 (6-22); Blood Urea Nitrogen < 2 mg/dL (7-17)
[2024-11-19] VITALS (26 sets, daily range): BP systolic 107–136; BP diastolic 59–89; PULSE 68–94; RESP 12–21; TEMP 36.3–36.4; O2SAT 96–100
[2024-11-19] MEDS: POTASSIUM CHLORIDE IN WATER 10 MEQ/100 ML PIGGYBACK 50 MEQ IV ×2 (00:47→05:03)
[2024-11-19] MEDS: POTASSIUM CHLORIDE IN WATER 10 MEQ/100 ML PIGGYBACK 100 MEQ IV (02:48)
[2024-11-19] MEDS: SODIUM CHLORIDE 0.45% 1,000 ML 100 ML IV (05:21)
[2024-11-19 05:23] LABS: Add Manual Diff / Slide Review NO; Basophils Absolute Auto 0 /uL (0-100); Basophils Percent Auto 0.3 % (0-2); Eosinophils Absolute Auto 100 /uL (0-450); Hematocrit 36.3 % (36-46); Hemoglobin 12.1 g/dL (12.0-16.0); Lymphocytes Absolute Auto 1200 /uL (1100-4500); Lymphocytes Percent Auto 15.8 % (25-40); Mean Corpuscular HGB Conc 33.4 % (30-36); Mean Corpuscular Hemoglobin 27.3 PG (26-34); Mean Corpuscular Volume 81.7 fL (80-100); Monocytes Absolute Auto 1000 /uL (0-900); Monocytes Percent Auto 13.3 % (3-14); Neutrophils Absolute Auto 5300 /uL (1500-7000); Neutrophils Percent Auto 69.6 % (50-75); Platelet Count 231 X10^3/uL (150-400); Red Blood Cell Count 4.44 X10^6/uL (4.0-5.2); Red Cell Distribution Width 16.6 % (11.6-14.8); White Blood Cell Count 7.6 X10^3/uL (4.5-11.0)
[2024-11-19 05:34] LABS: Carbon Dioxide 16 mmol/L (22-32); Chloride 106 mmol/L (98-107); Estimated Glomerular Filt Rate > 60 mL/min (>60); Glucose 157 mg/dL (70-99); HEMOLYSIS < 15 (0-50); Potassium 3.2 mmol/L (3.4-5.1); Sodium 132 mmol/L (137-145)
[2024-11-19 05:36] LABS: Hemoglobin A1C% w Est Avg Glu 7.6 % (4.0-6.0)
[2024-11-19 05:39] LABS: C-Reactive Protein Quant 3.5 mg/dL (<1.0)
[2024-11-19 05:52] LABS: BUN Creatinine Ratio 3.8 (6-22); Blood Urea Nitrogen < 2 mg/dL (7-17); Lipase 5229 U/L (23-300)
[2024-11-19] MEDS: KETOROLAC 30 MG/ML VIAL IV ×3 (06:09→18:25)
[2024-11-19] MEDS: POTASSIUM CHLORIDE IN WATER 10 MEQ/100 ML PIGGYBACK 75 MEQ IV ×2 (06:32→08:13)
[2024-11-19] MEDS: PANTOPRAZOLE 40 MG VIAL IV (08:13)
[2024-11-19] MEDS: INSULIN GLARGINE 100 UNIT/ML 3ML PEN 20 UNIT SUBCUT (10:20)
[2024-11-19] MEDS: INSULIN LISPRO 100 UNIT/ML 3ML VIAL SUBCUT ×2 (11:57→17:16)
[2024-11-19] MEDS: SODIUM CHLORIDE 0.9% 1,000 ML 125 ML IV ×2 (13:23→23:00)
[2024-11-19] MEDS: ONDANSETRON 4 MG/2 ML INJ IV (13:32)
--- NOTE | 2024-11-19 13:43 | PC.NURSE ---
Patient appears to be spitting up saliva, stating thick mucus is making me gag and vomit. Requesting acid reflux meds, educated that she is already on pantoprazole. Requesting medication to thin the mucus. Previously medicated with zofran, offered reglan, patient declined stating it makes me go to the bathroom. Patient had not been spitting or vomiting until parents present in room.
--- NOTE | 2024-11-19 15:46 | CM.DANOTE ---
Patient is a 29 yo female READMIT on 11/18/24 INPT Status for Pancreatitis and Abd issues. Per MD, pt with hx of DM, dysphagia, malnutrition, and GI issues and admitted for pancreatitis and work up. Pt shares that she hasn't been able to eat or drink for a month, other than small sips of water, due to choking. She has a hx of anxiety disorder which is now exacerbated with her choking fears and food aversion. Pt has discussed with MD her research online and interest in TPN as pt has lost over 30 lbs due to inability to maintain adequate intake. Payor: [employer] PCP: Hailey Gardner Pt recently admitted for similar 10/24-10/26/24 and was discharged home with outpt f/u with GI and pt was able to follow through but gastric emptying study recommended and not covered by insurance. Per RN, some evidence of pt's gagging/swallow issues increasing when mother/family arrive bedside. SW suggested further discussion regarding mental health resources and supports due to pt's baseline anxiety and fear about choking and intake but MD confirms that pt tends to feel dismissed when anxiety discussed and recommending holding off on this discussion for now until further workup completed. Pt resides with her parents in their home in [place] and is independent with ADLs at baseline. Family typically will transport at d/c. Discharge planning needs unclear at this time. Plan: SW to follow closely for further work up and recommendations to determine discharge planning needs. JOHANA Alicea Discharge Planning/Care Management CM Discharge Assessment Start: 11/18/24 10:38 Freq: Status: Active Protocol: Document 11/19/24 15:43 BF (Rec: 11/19/24 15:46 BF [id number]) Discharge Planning Assessment Assigned Discharge JOHANA Vincent Data Processing Control Clerk DPOA/Assigned informally mother Keesha [phone] Designee Name Advance Directives? No Advance Directives No on File History Provided By Patient,Family Member,Medical Record Has Patient been Yes admitted in last 30 days? Comment recent admit 10/24-10/26/24 for similar and discharged home with outpt GI f/u Prior Living House Arrangements Household Members family Type of Drives own vehicle transporation used prior to admit Independent with ADL Yes 's Is patient alert and Yes oriented? Caregiver for No Another Comment N/A Barriers to No Discharge Discharge Plan Home Transportation Family Arrangement Referrals Initiated None needed Additional Comment Might benefit from outpt MH resources and supports Whiteboard Updated Yes in Patient Room with name and ext. # of [facility] Review Status In Process Please Provide Date 11/19/24 Initial DC Assessment Was Performed Next Review Type Continued Stay Review
--- NOTE | 2024-11-19 16:12 | DIET.CONS ---
Dietary Consultation Note Admission Date: 11/18/2024 10:32 Assessment: 29 y F admitted for pancreatitis. Dietitian consulted for once DKA resolves. Met with pt and parents at bedside. Regarding BG management supplies outside of hospital: Pt reports feeling her BG meter at home is off by 8-10 mg/dL. Unsure about CGM d/t supply issues and has heard that CGMs are also not accurate Regarding weight loss and presumed inadequate PO intake: Reports since August has not been able to eat a full meal. Reports similar symptoms described in both the SAMPLE WRAPPER eval and H&Ps, i.e. feeling of food getting stuck in throat and acid reflux like symptoms. Not able to tolerate protein shakes. Difficulty tolerating broth d/t heated up broth with separation of spices and fats trigger sensation of food stuck in throat. Unable to get exact diet recall. Pt tolerating juice and thin liquids. Has tried soft eggs. Reports she may have developed a fear of eating some foods, difficulty discerning when food is actually going down or if it will get stuck. Dextrose running in IV. Nutrition focused physical exam performed with no significant findings: Assessed temples, buccal and orbital fat pads, clavicle region (deltoid, pectoralis, trapezius), triceps, interosseous Ht: 149.86 cm Wt: 78.063 kg BMI: 34.7 UBW: 207 lb per pt, 88.451 kg on 10/23/24 (-12% weight loss in 1 month, severe) Last BM: () MNA: 7 Gabo Score: 18 Diet: 11/18/24 10:32 NPO Diet Diet Modifications: NPO Type: NPO except for Ice Chips Labs: RBC 4.44 X10^6/uL (4.0-5.2) 11/19/24 05:10 Hgb 12.1 g/dL (12.0-16.0) 11/19/24 05:10 Hct 36.3 % (36-46) 11/19/24 05:10 Creatinine 0.53 mg/dL (0.52-1.04) 11/19/24 05:10 Hemoglobin A1c 7.6 % (4.0-6.0) H 11/19/24 05:10 Lactate 1.7 mmol/L (0.7-2.1) 11/18/24 08:45 Nutrition Diagnosis: Unintentional weight loss r/t pt reporting swallowing difficulties/altered GI function aeb 12% weight loss within 1 month, severe Interventions: -Pt NPO now, following closely for when diet advances to review best tolerated options -Discussed CGM accuracy/margin of error and having BG meter as back up to check CGM reported BG or if out of stock; getting new prescription from endo or PCP if current BG meter is old or inaccurate EER: 1750 kcals (MSJx1.25) 70 g (1g/kg adjusted IBW/16% kcals) Monitoring/Evaluations: f/u when diet advances Electronically Signed by: Becca Mariee 11/19/24 16:12 Clinical Dietitian [address] [address]
--- NOTE | 2024-11-19 17:46 | PM.PN.1 ---
Subjective Subjective Date Patient Seen: 11/19/24 Time Patient Seen: 17:50 Interval history: 29-year-old female with type 2 diabetes, odynophagia, dysphagia, chronic epigastric pain, focal mild chronic inflammation of the antrum of the stomach, protein calorie malnutrition, anxiety, class 1 obesity, hidradenitis suppurativa of the axilla admitted yesterday for DKA and pancreatitis. Her insulin infusion was shut off overnight due to hyperkalemia. Nevertheless her anion gap and bicarb had improved to be able to shut off the infusion and she was transitioned to 7 U of lantus this AM. Lipase is higher today. CT scan showed no gallstones. She denies EtOH use. No triglyceride level was sent, ordered this evening. Exam Vital Signs (past 8 hours): - 11/19/24 10:00 11/19/24 10:00 11/19/24 11:00 Temperature Pulse Rate 76 Respiratory Rate 14 Blood Pressure 113/68 116/65 Pulse Oximetry 98 Oxygen Delivery Method Oxygen Flow Rate 11/19/24 11:00 11/19/24 12:00 11/19/24 12:00 Temperature 97.5 F L Pulse Rate 77 80 Respiratory Rate 17 17 Blood Pressure 122/67 Pulse Oximetry 100 100 Oxygen Delivery Method Oxygen Flow Rate 0 11/19/24 12:35 11/19/24 13:00 11/19/24 13:00 Temperature Pulse Rate 85 Respiratory Rate 18 Blood Pressure 128/70 Pulse Oximetry 99 Oxygen Delivery Method Room Air Oxygen Flow Rate 11/19/24 14:00 11/19/24 14:00 11/19/24 15:00 Temperature Pulse Rate 83 Respiratory Rate 19 Blood Pressure 131/75 113/77 Pulse Oximetry 98 Oxygen Delivery Method Oxygen Flow Rate 0 11/19/24 15:00 11/19/24 16:00 11/19/24 16:00 Temperature Pulse Rate 88 75 Respiratory Rate 20 15 Blood Pressure 114/63 Pulse Oximetry 98 99 Oxygen Delivery Method Oxygen Flow Rate Oxygen Delivery Method Room Air Oxygen Flow Rate 0 Narrative Exam Narrative: GEN: Adult female, Alert and oriented x3, no acute distress HEENT: Normocephalic, face symmetric, pupils equal round reactive to light, extraocular movements intact, sclerae anicteric, conjunctiva clear, nares patent, oropharynx reveals an intact soft and hard palate with moist mucous membranes, dentition is fair NECK: Supple, no lymphadenopathy, thyroid without enlargement or nodularity, carotids no bruits CHEST: Respiratory excursions symmetric, clear to auscultation bilaterally CV: Regular rate and rhythm, no murmurs, rubs, gallops, PMI nondisplaced ABD: Soft, moderate epigastric tenderness, nondistended, bowel sounds present in all 4 quadrants, body habitus limits exam EXTR: Warm, well perfused, no clubbing/cyanosis/edema SKIN: Warm and dry, without rash NEURO: Alert and oriented x3, grossly intact PSYCH: Mood and affect is flat, judgment and insight are appropriate Objective Labs 11/19/24 05:10 11/19/24 05:10 Labs: Laboratory Results - last 24 hr 11/18/24 11/18/24 11/18/24 17:51 19:24 19:29 WBC RBC Hgb Hct MCV MCH MCHC RDW Plt Count Neut % (Auto) Lymph % (Auto) [place] % (Auto) Eos % (Auto) Baso % (Auto) Neut # (Auto) Lymph # (Auto) [place] # (Auto) Eos # (Auto) Baso # (Auto) VBG pH VBG pCO2 VBG pO2 VBG HCO3 VBG Total CO2 VBG O2 Saturation VBG Base Excess FiO2 % Sodium 134 L 136 L Potassium 2.9 L 3.0 L Chloride 103 102 Carbon Dioxide 12 L 14 L BUN < 2 L 2 L Creatinine 0.50 L 0.52 Estimated GFR > 60 > 60 BUN/Creatinine Ratio 4.0 L 3.8 L Glucose 250 H 238 H Hemoglobin A1c Calcium 8.6 8.8 C-Reactive Protein Lipase Serum , Qual Negative 11/18/24 11/18/24 11/19/24 21:13 22:45 05:10 WBC 7.6 RBC 4.44 Hgb 12.1 Hct 36.3 MCV 81.7 MCH 27.3 MCHC 33.4 RDW 16.6 H Plt Count 231 Neut % (Auto) 69.6 Lymph % (Auto) 15.8 L [place] % (Auto) 13.3 Eos % (Auto) 1.0 L Baso % (Auto) 0.3 Neut # (Auto) 5300 Lymph # (Auto) 1200 [place] # (Auto) 1000 H Eos # (Auto) 100 Baso # (Auto) 0 VBG pH 7.23 L VBG pCO2 39.6 L VBG pO2 24 L VBG HCO3 17 L VBG Total CO2 16 L VBG O2 Saturation 33 L VBG Base Excess -10.5 L FiO2 % 21.0 % Sodium 135 L 132 L Potassium 2.9 L 3.2 L Chloride 107 106 Carbon Dioxide 16 L 16 L BUN < 2 L < 2 L Creatinine 0.51 L 0.53 Estimated GFR > 60 > 60 BUN/Creatinine Ratio 3.9 L 3.8 L Glucose 161 H 157 H Hemoglobin A1c 7.6 H Calcium 8.0 L 8.0 L C-Reactive Protein 3.5 H Lipase 5229 H D Serum , Qual [facility] Medical History Obesity Type 2 diabetes mellitus with insulin therapy Social History household members: family Assessment & Plan Assessment & Plan narrative: 1. Acute pancreatitis, present on admission Patient presented with nausea, vomiting, epigastric pain. CT scan revealed acute uncomplicated pancreatitis. Lipase was elevated above 2300. She is not a significant alcohol drinker. No evidence of biliary obstruction. No gallstones. - Continue NPO, IV fluids. - PPI case reports, unclear if causative at this time. Also has been on citalopram and semaglutide as well in the past year, but not recently. - Check Triglyceride level - continue daily lipase given worsening today and unclear etiology - consider IGG subclasses if no improvement and triglycerides are normal. 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 Though need to evaluate other possible etiologies. 2. IDDM, with DKA A1c 7.6%. - treated with insulin infusion for DKA. Now gap resolved and acidosis improved. - may need to restart infusion if triglycerides are elevated. - for now continue Lantus 7 U daily and sliding scale q6 hr while NPO, adjust as necessary - will send KOMAL 65 antibody. Presuming insulin dependent given multiple DKA episodes. 5. Epigastric pain and associated dysphagia/odynophagia Patient has undergone a barium swallow, EGD with biopsies, and laryngoscope. None of these were revealing as to the etiology of her present symptoms. She likely should have follow-up with Gastroenterology and consideration of esophageal dilation. Also needs a gastric emptying study to evaluate for gastroparesis as a potential etiology for her present symptoms. - will hold reglan, may be possible to perform gastric emptying study while here depending on dietary tolerance. 6. Protein calorie malnutrition, presumed severe Discussed risks of TPN and goal of using the gut whenever possible. Advised that once her pancreatitis has resolved, she may benefit from using Glucerna for liquid nutrition benefits. If she can not do that, the next step would be time-limited tube feeds. Reviewed the significant risks of TPN and that it would be a last resort. Code status Full Prophylaxis Low Minesh score Disposition - acute care. if insulin drip needed for elevated triglycerides may need to move back to ICU status. Time-Based Coding :: [TOTAL MINUTES] spent with patient and on the chart (including review of chart, obtaining history, exam, reviewing outside data, placing orders, documenting exam and treatment plan, and counseling patient) on [DATE].
[2024-11-19 18:39] LABS: Alanine Aminotransferase 11 IU/L (<35); Albumin 3.8 g/dL (3.5-5.0); Albumin Globulin Ratio 1.2 (1.0-2.8); Alkaline Phosphatase 90 U/L (38-126); Aspartate Aminotransferase 20 IU/L (14-36); Bilirubin Total 0.7 mg/dL (0.2-1.3); Calcium 8.6 mg/dL (8.4-10.2); Carbon Dioxide 15 mmol/L (22-32); Chloride 105 mmol/L (98-107); Estimated Glomerular Filt Rate > 60 mL/min (>60); Globulin 3.1 g/dL (1.7-4.1); Glucose 139 mg/dL (70-99); HEMOLYSIS < 15 (0-50); Potassium 3.1 mmol/L (3.4-5.1); Sodium 136 mmol/L (137-145); Total Protein 6.9 g/dL (6.3-8.2); Triglycerides 84 mg/dL (35-150)
[2024-11-19 18:40] LABS: BUN Creatinine Ratio 4.2 (6-22); Blood Urea Nitrogen < 2 mg/dL (7-17)
[2024-11-20] VITALS (29 sets, daily range): BP systolic 103–149; BP diastolic 55–80; PULSE 75–99; RESP 15–24; TEMP 36.3–37.3; O2SAT 97–100
[2024-11-20 05:04] LABS: Add Manual Diff / Slide Review NO; Basophils Absolute Auto 100 /uL (0-100); Basophils Percent Auto 0.7 % (0-2); Eosinophils Absolute Auto 100 /uL (0-450); Eosinophils Percent Auto 1.1 % (2-4); Hematocrit 33.3 % (36-46); Hemoglobin 11.2 g/dL (12.0-16.0); Lymphocytes Absolute Auto 900 /uL (1100-4500); Lymphocytes Percent Auto 11.3 % (25-40); Mean Corpuscular HGB Conc 33.6 % (30-36); Mean Corpuscular Hemoglobin 27.4 PG (26-34); Mean Corpuscular Volume 81.6 fL (80-100); Monocytes Absolute Auto 900 /uL (0-900); Monocytes Percent Auto 11.5 % (3-14); Neutrophils Absolute Auto 6100 /uL (1500-7000); Neutrophils Percent Auto 75.4 % (50-75); Platelet Count 194 X10^3/uL (150-400); Red Blood Cell Count 4.07 X10^6/uL (4.0-5.2); Red Cell Distribution Width 16.6 % (11.6-14.8); White Blood Cell Count 8.1 X10^3/uL (4.5-11.0)
[2024-11-20 05:13] LABS: Magnesium 1.5 mg/dL (1.6-2.3)
[2024-11-20 05:14] LABS: Calcium 7.8 mg/dL (8.4-10.2); Carbon Dioxide 17 mmol/L (22-32); Chloride 108 mmol/L (98-107); Estimated Glomerular Filt Rate > 60 mL/min (>60); Glucose 138 mg/dL (70-99); Potassium 2.9 mmol/L (3.4-5.1); Sodium 134 mmol/L (137-145)
[2024-11-20] MEDS: KETOROLAC 30 MG/ML VIAL IV ×2 (05:15→18:58)
[2024-11-20] MEDS: SODIUM CHLORIDE 0.9% 1,000 ML 125 ML IV ×3 (05:23→21:45)
[2024-11-20 05:30] LABS: HEMOLYSIS 17 (0-50)
[2024-11-20 05:35] LABS: Blood Urea Nitrogen < 2 mg/dL (7-17); Lipase 3566 U/L (23-300)
[2024-11-20] MEDS: ONDANSETRON 4 MG/2 ML INJ IV (06:17)
[2024-11-20] MEDS: MAGNESIUM SULFATE 2 GM/50 ML PIGGYBACK IV (07:24)
[2024-11-20] MEDS: INSULIN LISPRO 100 UNIT/ML 3ML VIAL SUBCUT ×3 (08:39→17:08)
[2024-11-20] MEDS: PANTOPRAZOLE 40 MG VIAL IV (08:40)
[2024-11-20] MEDS: POTASSIUM CHLORIDE IN WATER 10 MEQ/100 ML PIGGYBACK 100 MEQ IV (08:40)
[2024-11-20] MEDS: INSULIN GLARGINE 100 UNIT/ML 3ML PEN 7 UNIT SUBCUT (08:40)
--- NOTE | 2024-11-20 09:06 | PM.PN.1 ---
Subjective Subjective Interval history: 29-year-old female with type 2 diabetes, odynophagia, dysphagia, chronic epigastric pain, focal mild chronic inflammation of the antrum of the stomach, protein calorie malnutrition, anxiety, class 1 obesity, hidradenitis suppurativa of the axilla admitted yesterday for DKA and pancreatitis. DKA is resolved. She has improved abdominal pain today, wants to try a bit of liquids. Exam Vital Signs (past 8 hours): - 11/20/24 02:00 11/20/24 02:00 11/20/24 03:00 Temperature Pulse Rate 85 Respiratory Rate 16 Blood Pressure 104/56 L 114/58 L Pulse Oximetry 97 11/20/24 03:00 11/20/24 04:00 11/20/24 04:00 Temperature Pulse Rate 90 80 Respiratory Rate 17 16 Blood Pressure 108/58 L Pulse Oximetry 97 97 11/20/24 05:00 11/20/24 05:00 11/20/24 06:00 Temperature Pulse Rate 80 Respiratory Rate 17 Blood Pressure 114/63 109/57 L Pulse Oximetry 100 11/20/24 06:00 11/20/24 06:43 Temperature 97.9 F Pulse Rate 81 Respiratory Rate 18 Blood Pressure Pulse Oximetry 98 Oxygen Delivery Method Room Air Oxygen Flow Rate 0 Narrative Exam Narrative: GEN: Adult female, Alert and oriented x3, no acute distress, mildly ill appearing HEENT: Normocephalic, face symmetric, pupils equal round reactive to light, extraocular movements intact, sclerae anicteric, conjunctiva clear, nares patent, oropharynx reveals an intact soft and hard palate with moist mucous membranes, dentition is fair NECK: Supple, no lymphadenopathy, thyroid without enlargement or nodularity, carotids no bruits CHEST: Respiratory excursions symmetric, clear to auscultation bilaterally CV: Regular rate and rhythm, no murmurs, rubs, gallops, PMI nondisplaced ABD: Soft, moderate epigastric tenderness, nondistended, bowel sounds present in all 4 quadrants, body habitus limits exam EXTR: Warm, well perfused, no clubbing/cyanosis/edema SKIN: Warm and dry, without rash NEURO: Alert and oriented x3, grossly intact PSYCH: Mood and affect is flat, judgment and insight are appropriate Objective Labs 11/20/24 04:55 11/20/24 04:55 Labs: Laboratory Results - last 24 hr 11/19/24 11/20/24 18:19 04:55 WBC 8.1 RBC 4.07 Hgb 11.2 L Hct 33.3 L MCV 81.6 MCH 27.4 MCHC 33.6 RDW 16.6 H Plt Count 194 Neut % (Auto) 75.4 H Lymph % (Auto) 11.3 L [place] % (Auto) 11.5 Eos % (Auto) 1.1 L Baso % (Auto) 0.7 Neut # (Auto) 6100 Lymph # (Auto) 900 L [place] # (Auto) 900 Eos # (Auto) 100 Baso # (Auto) 100 Sodium 136 L 134 L Potassium 3.1 L 2.9 L Chloride 105 108 H Carbon Dioxide 15 L 17 L BUN < 2 L < 2 L Creatinine 0.48 L 0.50 L Estimated GFR > 60 > 60 BUN/Creatinine Ratio 4.2 L 4.0 L Glucose 139 H 138 H Calcium 8.6 7.8 L Magnesium 1.5 L Total Bilirubin 0.7 AST 20 ALT 11 Alkaline Phosphatase 90 Total Protein 6.9 Albumin 3.8 Globulin 3.1 Albumin/Globulin Ratio 1.2 Triglycerides 84 Lipase 3566 H [facility] Medical History Obesity Type 2 diabetes mellitus with insulin therapy Social History household members: family Assessment & Plan Assessment & Plan narrative: 1. Acute pancreatitis, present on admission Patient presented with nausea, vomiting, epigastric pain. CT scan revealed acute uncomplicated pancreatitis. Lipase was elevated above 2300. She is not a significant alcohol drinker. No evidence of biliary obstruction. No gallstones. - Advance to clears this afternoon, lipase improved. Continue IV fluids possibly stop this afternoon. - PPI case reports of pancreatitis, unclear if causative at this time. Also has been on citalopram and semaglutide as well in the past year, but not recently. - Triglyceride level was unremarkable. - continue daily lipase given worsening today and unclear etiology - Will send IGG subclassesl. 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 2. IDDM, with DKA - has been managed as type 2. A1c 7.6%. Rule out autoimmune type 1. - treated with insulin infusion for DKA. Now gap resolved and acidosis improved. - for now continue Lantus 7 U daily and sliding scale q6 hr, adjust as necessary with diet - sent KOMAL 65 antibody. Presuming insulin dependent given multiple DKA episodes. 5. Epigastric pain and associated dysphagia/odynophagia Patient has undergone a barium swallow, EGD with biopsies, and laryngoscope. None of these were revealing as to the etiology of her present symptoms. She likely should have follow-up with Gastroenterology and consideration of esophageal dilation. Also needs a gastric emptying study to evaluate for gastroparesis as a potential etiology for her present symptoms. - will hold reglan, may be possible to perform gastric emptying study while here depending on dietary tolerance. 6. Protein calorie malnutrition, presumed severe Discussed risks of TPN and goal of using the gut whenever possible. Advised that once her pancreatitis has resolved, she may benefit from using Glucerna for liquid nutrition benefits. If she can not do that, the next step would be time-limited tube feeds. Reviewed the significant risks of TPN and that it would be a last resort. Code status Full Prophylaxis Low Minesh score Disposition - acute care. likely discharge in 2-3 days. But may need additional evaluation for malnutrition if it is indeed the etiology of her pancreatitis. Time-Based Coding :: [TOTAL MINUTES] spent with patient and on the chart (including review of chart, obtaining history, exam, reviewing outside data, placing orders, documenting exam and treatment plan, and counseling patient) on [DATE].
[2024-11-20] MEDS: POTASSIUM CHLORIDE IN WATER 10 MEQ/100 ML PIGGYBACK 75 MEQ IV ×7 (10:10→20:14)
--- NOTE | 2024-11-20 11:13 | DIET.CONS ---
Addendum entered by Becca Mariee 11/20/24 14:53: F/u with pt in afternoon, tray untouched at bedside. Pt didn't want to eat alone in case something happened. Poured 1 cup with 1/3 Ensure clear (roughly 17 g CHO) and 2/3 water and patient had a few sips, swallowing it. Discussed slowly sipping on the water-Ensure beverage over next hour as tolerated. Did not want to try broth or jello at this time. F/u in morning. Original Note: Dietary Consultation Note Admission Date: 11/18/2024 10:32 Assessment: RD f/u Further diet recall obtained. Since May progressive decrease PO intakes with start of current GERD-like symptoms. Over last 2 months, severe decrease in PO intakes with only able to tolerate 1 or 2 bites of food before feeling it was getting stuck in throat (even pureed or minced foods), tolerating some apple juice, water. Over last 2 weeks has only been able to do small amount of apple juice and water. Ht: 149.86 cm Wt: 78.063 kg BMI: 34.7 UBW: 207 lb per pt, 88.451 kg on 10/23/24 (-12% weight loss in 1 month, severe) Last BM: () MNA: 7 Gabo Score: 19 Diet: 11/18/24 10:32 NPO Diet Diet Modifications: NPO Type: NPO except for Ice Chips 11/20/24 Lunch Clear Liquid Diet Diet Modifications: Labs: RBC 4.07 X10^6/uL (4.0-5.2) 11/20/24 04:55 Hgb 11.2 g/dL (12.0-16.0) L 11/20/24 04:55 Hct 33.3 % (36-46) L 11/20/24 04:55 Creatinine 0.50 mg/dL (0.52-1.04) L 11/20/24 04:55 Hemoglobin A1c 7.6 % (4.0-6.0) H 11/19/24 05:10 Lactate 1.7 mmol/L (0.7-2.1) 11/18/24 08:45 Nutrition Diagnosis: Severe Acute Protein Calorie Malnutrition r/t inadequate oral intakes as evidenced by patient reporting feeling of food being stuck in throat and fear of choking, 12% weight loss in 1 month (severe) and <50% of estimated energy needs per diet recall in 2 months (severe) Interventions: -Discussed options available for clears today at lunch and best tolerated options, agreed to trial broth and half clear ensure diluted with water and jello cup -Monitoring refeeding labs EER: 1750 kcals (MSJx1.25) 70 g (1g/kg adjusted IBW/16% kcals) Monitoring/Evaluations: CLD tolerance Electronically Signed by: Becca Mariee 11/20/24 11:13 Clinical Dietitian [address] [address]
--- NOTE | 2024-11-20 12:45 | PC.NURSE ---
patient blood sugar at 12noon was 155, has a problem charting jade wont let me input the blood sugar. RN notified
[2024-11-20 13:43] LABS: POC Glucose 144 mg/dL (70-99)
[2024-11-20 15:43] LABS: Calcium 7.7 mg/dL (8.4-10.2); Carbon Dioxide 14 mmol/L (22-32); Chloride 109 mmol/L (98-107); Estimated Glomerular Filt Rate > 60 mL/min (>60); Glucose 150 mg/dL (70-99); HEMOLYSIS 16 (0-50); Potassium 3.4 mmol/L (3.4-5.1); Sodium 133 mmol/L (137-145)
[2024-11-20 15:46] LABS: BUN Creatinine Ratio 4.3 (6-22); Blood Urea Nitrogen < 2 mg/dL (7-17)
--- NOTE | 2024-11-20 18:01 | PC.NURSE ---
PT REMAINS A/OX4 ON ROOM AIR WITH INTERMITTENT COMPLAINTS OF ABDOMINAL PAIN. PAIN MEDICATION OFFERED BUT PATIENT STATED SHE WANTS TO WAIT TO TAKE ANY PAIN MEDICATION. DIET CHANGED TO CLEAR LIQUIDS BY TERENCE. PT REFUSING DIET BUT TAKING SMALL SIPS OF CLEAR ENSURE MIXED WITH WATER. PT RECEIVED ALL ORDERED POTASSIUM REPLACEMENTS. TOLERATED AT A SLOWER RATE WITH WARM COMPRESS. SEE EMAR/ LABS. UP TO BEDSIDE COMMODE MULTIPLE TIMES THROUGHOUT DAY. REFUSING TO SIT UP IN CHAIR. ACCEPTS TURNS. FAMILY CURRENTLY AT BEDSIDE. ENCOURAGED PO INTAKE TOLERATED.
[2024-11-20 20:29] LABS: POC Glucose 146 mg/dL (70-99)
[2024-11-20 20:29] LABS: POC Glucose 154 mg/dL (70-99)
[2024-11-21] VITALS (19 sets, daily range): BP systolic 106–116; BP diastolic 53–72; PULSE 78–96; RESP 16–22; TEMP 35.6–36.7; O2SAT 96–100
[2024-11-21] MEDS: KETOROLAC 30 MG/ML VIAL IV ×2 (00:50→18:12)
[2024-11-21] MEDS: SODIUM CHLORIDE 0.9% 1,000 ML 125 ML IV ×2 (07:00→14:41)
[2024-11-21 08:12] LABS: POC Glucose 160 mg/dL (70-99)
[2024-11-21 08:18] LABS: Add Manual Diff / Slide Review NO; Basophils Absolute Auto 0 /uL (0-100); Basophils Percent Auto 0.3 % (0-2); Eosinophils Absolute Auto 100 /uL (0-450); Eosinophils Percent Auto 1.5 % (2-4); Hematocrit 30.6 % (36-46); Hemoglobin 10.3 g/dL (12.0-16.0); Lymphocytes Absolute Auto 1000 /uL (1100-4500); Lymphocytes Percent Auto 11.6 % (25-40); Mean Corpuscular HGB Conc 33.8 % (30-36); Mean Corpuscular Hemoglobin 27.5 PG (26-34); Mean Corpuscular Volume 81.5 fL (80-100); Monocytes Absolute Auto 1000 /uL (0-900); Monocytes Percent Auto 11.3 % (3-14); Neutrophils Absolute Auto 6300 /uL (1500-7000); Neutrophils Percent Auto 75.3 % (50-75); Platelet Count 195 X10^3/uL (150-400); Red Blood Cell Count 3.75 X10^6/uL (4.0-5.2); Red Cell Distribution Width 16.7 % (11.6-14.8); White Blood Cell Count 8.4 X10^3/uL (4.5-11.0)
[2024-11-21 08:33] LABS: Magnesium 1.7 mg/dL (1.6-2.3)
[2024-11-21 08:34] LABS: Alanine Aminotransferase 8 IU/L (<35); Albumin 2.7 g/dL (3.5-5.0); Alkaline Phosphatase 76 U/L (38-126); Aspartate Aminotransferase 14 IU/L (14-36); Bilirubin Total 0.7 mg/dL (0.2-1.3); Calcium 7.7 mg/dL (8.4-10.2); Carbon Dioxide 14 mmol/L (22-32); Chloride 110 mmol/L (98-107); Estimated Glomerular Filt Rate > 60 mL/min (>60); Globulin 2.6 g/dL (1.7-4.1); Glucose 155 mg/dL (70-99); HEMOLYSIS < 15 (0-50); Phosphorous 2.3 mg/dL (2.5-4.5); Potassium 3.1 mmol/L (3.4-5.1); Sodium 136 mmol/L (137-145); Total Protein 5.3 g/dL (6.3-8.2)
[2024-11-21] MEDS: INSULIN LISPRO 100 UNIT/ML 3ML VIAL SUBCUT ×2 (08:37→12:39)
[2024-11-21] MEDS: PANTOPRAZOLE 40 MG VIAL IV ×2 (08:37→21:33)
[2024-11-21] MEDS: INSULIN GLARGINE 100 UNIT/ML 3ML PEN 7 UNIT SUBCUT (08:38)
[2024-11-21 08:39] LABS: BUN Creatinine Ratio 4.5 (6-22); Blood Urea Nitrogen < 2 mg/dL (7-17)
[2024-11-21 09:00] LABS: Lipase 2807 U/L (23-300)
--- NOTE | 2024-11-21 09:18 | DIET.PN1 ---
Addendum entered by Becca Mariee 11/21/24 16:41: Pt reporting abd pain is less and planning to try clears again tonight. Original Note: Dietary Progress Note Assessment: F/u with pt this morning, reporting abd pain and not interested in attempting any more clear liquids. Will f/u this afternoon. Ht: 149.86 cm Wt: 78.063 kg BMI: 34.7 UBW: Last BM: () MNA: 7 Gabo Score: 19 Diet: 11/20/24 Lunch Clear Liquid Diet Diet Modifications: Nutrition Percent Meal Consumed refused eating 11/20/24 18:00 Percent Meal Consumed 0 11/20/24 18:00 Percent Meal Consumed 0% 11/20/24 13:45 Percent Meal Consumed 0% 11/20/24 12:43 Labs: RBC 3.75 X10^6/uL (4.0-5.2) L 11/21/24 08:08 Hgb 10.3 g/dL (12.0-16.0) L 11/21/24 08:08 Hct 30.6 % (36-46) L 11/21/24 08:08 Creatinine 0.44 mg/dL (0.52-1.04) L 11/21/24 08:08 Hemoglobin A1c 7.6 % (4.0-6.0) H 11/19/24 05:10 Lactate 1.7 mmol/L (0.7-2.1) 11/18/24 08:45 Electronically Signed by: Becca Mariee 11/21/24 09:18 Clinical Dietitian [address] [address]
[2024-11-21] MEDS: MAGNESIUM SULFATE 2 GM/50 ML PIGGYBACK IV (09:48)
[2024-11-21] MEDS: POTASSIUM CHLORIDE IN WATER 10 MEQ/100 ML PIGGYBACK 75 MEQ IV ×4 (09:49→13:51)
--- NOTE | 2024-11-21 11:02 | P.PN_ITS ---
Subjective Subjective Interval history: 29-year-old female with type 2 diabetes, odynophagia, dysphagia, chronic epigastric pain, focal mild chronic inflammation of the antrum of the stomach, protein calorie malnutrition, anxiety, class 1 obesity, hidradenitis suppurativa of the axilla admitted yesterday for DKA and pancreatitis. DKA is resolved. She had improved abdominal pain but regressed a bit when trying clear liquids, she was able to tolerate some ensure clears. Exam Vital Signs (past 8 hours): - 11/21/24 04:00 11/21/24 04:00 11/21/24 04:00 Temperature 97.4 F L Pulse Rate 84 96 H Respiratory Rate 19 21 Blood Pressure 107/64 Pulse Oximetry 99 98 Oxygen Delivery Method Room Air Oxygen Flow Rate 0 11/21/24 04:31 11/21/24 04:31 11/21/24 05:00 Temperature Pulse Rate 84 81 Respiratory Rate 20 19 Blood Pressure 107/64 Pulse Oximetry 99 99 Oxygen Delivery Method Oxygen Flow Rate 11/21/24 06:00 11/21/24 07:00 11/21/24 08:00 Temperature Pulse Rate 80 85 Respiratory Rate 17 18 Blood Pressure Pulse Oximetry 98 97 Oxygen Delivery Method Room Air Oxygen Flow Rate 11/21/24 08:00 11/21/24 08:11 11/21/24 08:11 Temperature 97.9 F Pulse Rate 81 84 Respiratory Rate 19 20 Blood Pressure 108/60 Pulse Oximetry 97 99 Oxygen Delivery Method Oxygen Flow Rate 0 Oxygen Delivery Method Room Air Oxygen Flow Rate 0 Narrative Exam Narrative: GEN: Adult female, Alert and oriented x3, no acute distress, mildly ill appearing HEENT: Normocephalic, face symmetric, pupils equal round reactive to light, extraocular movements intact, sclerae anicteric, conjunctiva clear, nares patent, oropharynx reveals an intact soft and hard palate with moist mucous membranes, dentition is fair NECK: Supple, no lymphadenopathy, thyroid without enlargement or nodularity, carotids no bruits CHEST: Respiratory excursions symmetric, clear to auscultation bilaterally CV: Regular rate and rhythm, no murmurs, rubs, gallops, PMI nondisplaced ABD: Soft, moderate epigastric tenderness, nondistended, bowel sounds present in all 4 quadrants, body habitus limits exam EXTR: Warm, well perfused, no clubbing/cyanosis/edema SKIN: Warm and dry, without rash NEURO: Alert and oriented x3, grossly intact PSYCH: Mood and affect is flat, judgment and insight are appropriate Objective Labs 11/21/24 08:08 11/21/24 08:08 Labs: Laboratory Results - last 24 hr 11/20/24 11/20/24 11/20/24 13:37 15:14 15:56 WBC RBC Hgb Hct MCV MCH MCHC RDW Plt Count Neut % (Auto) Lymph % (Auto) [place] % (Auto) Eos % (Auto) Baso % (Auto) Neut # (Auto) Lymph # (Auto) [place] # (Auto) Eos # (Auto) Baso # (Auto) Sodium 133 L Potassium 3.4 Chloride 109 H Carbon Dioxide 14 L BUN < 2 L Creatinine 0.47 L Estimated GFR > 60 BUN/Creatinine Ratio 4.3 L Glucose 150 H POC Whole Bld Glucose 144 H 154 H Calcium 7.7 L Phosphorus Magnesium Total Bilirubin AST ALT Alkaline Phosphatase Total Protein Albumin Globulin Albumin/Globulin Ratio Lipase 11/20/24 11/21/24 11/21/24 20:27 08:08 08:10 WBC 8.4 RBC 3.75 L Hgb 10.3 L Hct 30.6 L MCV 81.5 MCH 27.5 MCHC 33.8 RDW 16.7 H Plt Count 195 Neut % (Auto) 75.3 H Lymph % (Auto) 11.6 L [place] % (Auto) 11.3 Eos % (Auto) 1.5 L Baso % (Auto) 0.3 Neut # (Auto) 6300 Lymph # (Auto) 1000 L [place] # (Auto) 1000 H Eos # (Auto) 100 Baso # (Auto) 0 Sodium 136 L Potassium 3.1 L Chloride 110 H Carbon Dioxide 14 L BUN < 2 L Creatinine 0.44 L Estimated GFR > 60 BUN/Creatinine Ratio 4.5 L Glucose 155 H POC Whole Bld Glucose 146 H 160 H Calcium 7.7 L Phosphorus 2.3 L Magnesium 1.7 Total Bilirubin 0.7 AST 14 ALT 8 Alkaline Phosphatase 76 Total Protein 5.3 L Albumin 2.7 L Globulin 2.6 Albumin/Globulin Ratio 1.0 Lipase 2807 H PFS Medical History Obesity Type 2 diabetes mellitus with insulin therapy Social History household members: family Assessment & Plan Assessment & Plan narrative: 1. Acute pancreatitis, present on admission Patient presented with nausea, vomiting, epigastric pain. CT scan revealed acute uncomplicated pancreatitis. Lipase was elevated above 2300. She is not a significant alcohol drinker. No evidence of biliary obstruction. No gallstones. - Advance to clears but will leave on clears due to worsened pain earlier today. lipase improving slowly. Continue IV fluids for now. - PPI case reports of pancreatitis, unclear if causative at this time. Also has been on citalopram and semaglutide as well in the past year, but not recently. - Triglyceride level was unremarkable. - continue daily lipase given worsening today and unclear etiology - Will send IGG subclassesl. 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 How this is managed is less clear. Will see if her nutrition is sufficient after resolution of pancreatitis, if not may need to consider either transfer for further evaluation or supplemental nutrition prior to outpatient workup. She has had largely unremarkable workup as an outpatient at [facility]. 2. IDDM, with DKA - has been managed as type 2. A1c 7.6%. Rule out autoimmune type 1. - treated with insulin infusion for DKA. Now gap resolved and acidosis improved. - for now continue Lantus 7 U daily and sliding scale q6 hr, adjust as necessary with diet - sent KOMAL 65 antibody. Presuming insulin dependent given multiple DKA episodes. 5. Epigastric pain and associated dysphagia/odynophagia Patient has undergone a barium swallow, EGD with biopsies, and laryngoscope. None of these were revealing as to the etiology of her present symptoms. She likely should have follow-up with Gastroenterology. - will hold reglan, may be possible to perform gastric emptying study while here depending on dietary tolerance. 6. Severe acute protein calorie malnutrition. Discussed risks of TPN and goal of using the gut whenever possible. Advised that once her pancreatitis has resolved, she may benefit from using Glucerna for liquid nutrition benefits. If she can not do that, the next step would be time- limited tube feeds. Reviewed the significant risks of TPN and that it would be a last resort. Code status Full Prophylaxis Low Minesh score Disposition - acute care. likely discharge in 2-3 days. But may need additional evaluation for malnutrition if it is indeed the etiology of her pancreatitis. Time-Based Coding :: [TOTAL MINUTES] spent with patient and on the chart (including review of chart, obtaining history, exam, reviewing outside data, placing orders, documenting exam and treatment plan, and counseling patient) on [DATE].
[2024-11-21 13:45] LABS: POC Glucose 156 mg/dL (70-99)
--- NOTE | 2024-11-21 14:51 | PC.NURSE ---
1445: REPORT GIVEN TO IMER MCFARLAND
[2024-11-21 16:09] LABS: IgG Subclass 1 431 mg/dL (248-810); IgG Subclass 2 468 mg/dL (130-555); IgG Subclass 3 21 mg/dL (15-102); IgG Subclass 4 6 mg/dL (2-96); IgG Total 1060 mg/dL (586-1602)
[2024-11-21 16:47] LABS: POC Glucose 128 mg/dL (70-99)
[2024-11-21 21:33] LABS: POC Glucose 145 mg/dL (70-99)
[2024-11-21] MEDS: ONDANSETRON 4 MG/2 ML INJ IV (23:50)
[2024-11-22 03:10] LABS: Add Manual Diff / Slide Review NO; Basophils Absolute Auto 200 /uL (0-100); Basophils Percent Auto 2.3 % (0-2); Eosinophils Absolute Auto 200 /uL (0-450); Eosinophils Percent Auto 1.7 % (2-4); Hematocrit 31.2 % (36-46); Hemoglobin 10.6 g/dL (12.0-16.0); Lymphocytes Absolute Auto 500 /uL (1100-4500); Lymphocytes Percent Auto 5.8 % (25-40); Mean Corpuscular Hemoglobin 27.7 PG (26-34); Mean Corpuscular Volume 81.3 fL (80-100); Monocytes Absolute Auto 800 /uL (0-900); Neutrophils Absolute Auto 7300 /uL (1500-7000); Neutrophils Percent Auto 81.2 % (50-75); Platelet Count 201 X10^3/uL (150-400); Red Blood Cell Count 3.84 X10^6/uL (4.0-5.2); Red Cell Distribution Width 16.6 % (11.6-14.8); White Blood Cell Count 8.9 X10^3/uL (4.5-11.0)
[2024-11-22 03:20] LABS: Phosphorous 1.9 mg/dL (2.5-4.5)
[2024-11-22 03:21] LABS: Magnesium 1.8 mg/dL (1.6-2.3)
[2024-11-22 03:22] LABS: Alanine Aminotransferase 9 IU/L (<35); Albumin 2.9 g/dL (3.5-5.0); Alkaline Phosphatase 82 U/L (38-126); Aspartate Aminotransferase 14 IU/L (14-36); Bilirubin Total 0.6 mg/dL (0.2-1.3); Calcium 7.9 mg/dL (8.4-10.2); Carbon Dioxide 11 mmol/L (22-32); Chloride 109 mmol/L (98-107); Estimated Glomerular Filt Rate > 60 mL/min (>60); Globulin 2.9 g/dL (1.7-4.1); Glucose 155 mg/dL (70-99); HEMOLYSIS < 15 (0-50); Potassium 3.1 mmol/L (3.4-5.1); Sodium 135 mmol/L (137-145); Total Protein 5.8 g/dL (6.3-8.2)
[2024-11-22 03:23] LABS: BUN Creatinine Ratio 5.1 (6-22); Blood Urea Nitrogen < 2 mg/dL (7-17)
[2024-11-22 03:30] LABS: Lipase 2058 U/L (23-300)
[2024-11-22 04:27] VITALS: BP 111/63; PULSE 95; RESP 16; TEMP 36.4; O2SAT 97
--- NOTE | 2024-11-22 07:59 | PM.PN.1 ---
Subjective Subjective Interval history: Summary: 29-year-old female with type 2 diabetes, odynophagia, dysphagia, chronic epigastric pain, focal mild chronic inflammation of the antrum of the stomach, protein calorie malnutrition, anxiety, class 1 obesity, hidradenitis suppurativa of the axilla admitted yesterday for DKA and pancreatitis. DKA is resolved. She had improved abdominal pain but regressed a bit when trying clear liquids, she was able to tolerate some ensure clears. S: Her sugars are better controlled, she was still having intermittent regurgitation and throat fullness. She was scheduled for an esophageal dilation on November 27 at [facility] with gastroenterology. She also believes that reflux is contributing to her symptoms. Exam Vital Signs (past 8 hours): - 11/22/24 04:27 Temperature 97.6 F Pulse Rate 95 H Respiratory Rate 16 Blood Pressure 111/63 Pulse Oximetry 97 Oxygen Flow Rate 0 Oxygen Delivery Method Room Air Oxygen Flow Rate 0 Narrative Exam Narrative: NAD, alert and oriented. Fluent speech. Flat affect. Lungs are clear, normal rate and effort. Heart is regular, no murmur gallop or rub. Abdomen is soft, non distended. Extremities are free of edema. Objective Labs 11/22/24 02:50 11/22/24 02:50 Labs: Laboratory Results - last 24 hr 11/20/24 11/21/24 11/21/24 09:20 08:08 08:10 WBC 8.4 RBC 3.75 L Hgb 10.3 L Hct 30.6 L MCV 81.5 MCH 27.5 MCHC 33.8 RDW 16.7 H Plt Count 195 Neut % (Auto) 75.3 H Lymph % (Auto) 11.6 L [place] % (Auto) 11.3 Eos % (Auto) 1.5 L Baso % (Auto) 0.3 Neut # (Auto) 6300 Lymph # (Auto) 1000 L [place] # (Auto) 1000 H Eos # (Auto) 100 Baso # (Auto) 0 Sodium 136 L Potassium 3.1 L Chloride 110 H Carbon Dioxide 14 L BUN < 2 L Creatinine 0.44 L Estimated GFR > 60 BUN/Creatinine Ratio 4.5 L Glucose 155 H POC Whole Bld Glucose 160 H Calcium 7.7 L Phosphorus 2.3 L Magnesium 1.7 Total Bilirubin 0.7 AST 14 ALT 8 Alkaline Phosphatase 76 Total Protein 5.3 L Albumin 2.7 L Globulin 2.6 Albumin/Globulin Ratio 1.0 Lipase 2807 H IgG Subclass 1 431 IgG Subclass 2 468 IgG Subclass 3 21 IgG Subclass 4 6 Immunoglobulin A IgG Ab 1060 11/21/24 11/21/24 11/21/24 12:39 16:46 21:28 WBC RBC Hgb Hct MCV MCH MCHC RDW Plt Count Neut % (Auto) Lymph % (Auto) [place] % (Auto) Eos % (Auto) Baso % (Auto) Neut # (Auto) Lymph # (Auto) [place] # (Auto) Eos # (Auto) Baso # (Auto) Sodium Potassium Chloride Carbon Dioxide BUN Creatinine Estimated GFR BUN/Creatinine Ratio Glucose POC Whole Bld Glucose 156 H 128 H 145 H Calcium Phosphorus Magnesium Total Bilirubin AST ALT Alkaline Phosphatase Total Protein Albumin Globulin Albumin/Globulin Ratio Lipase IgG Subclass 1 IgG Subclass 2 IgG Subclass 3 IgG Subclass 4 Immunoglobulin A IgG Ab 11/22/24 02:50 WBC 8.9 RBC 3.84 L Hgb 10.6 L Hct 31.2 L MCV 81.3 MCH 27.7 MCHC 34.0 RDW 16.6 H Plt Count 201 Neut % (Auto) 81.2 H Lymph % (Auto) 5.8 L [place] % (Auto) 9.0 Eos % (Auto) 1.7 L Baso % (Auto) 2.3 H Neut # (Auto) 7300 H Lymph # (Auto) 500 L [place] # (Auto) 800 Eos # (Auto) 200 Baso # (Auto) 200 H Sodium 135 L Potassium 3.1 L Chloride 109 H Carbon Dioxide 11 L BUN < 2 L Creatinine 0.39 L Estimated GFR > 60 BUN/Creatinine Ratio 5.1 L Glucose 155 H POC Whole Bld Glucose Calcium 7.9 L Phosphorus 1.9 L Magnesium 1.8 Total Bilirubin 0.6 AST 14 ALT 9 Alkaline Phosphatase 82 Total Protein 5.8 L Albumin 2.9 L Globulin 2.9 Albumin/Globulin Ratio 1.0 Lipase 2058 H IgG Subclass 1 IgG Subclass 2 IgG Subclass 3 IgG Subclass 4 Immunoglobulin A IgG Ab [facility] Medical History Obesity Type 2 diabetes mellitus with insulin therapy Social History household members: family Assessment & Plan Assessment & Plan narrative: 1. Acute pancreatitis, present on admission and improving. Patient presented with nausea, vomiting, epigastric pain. CT scan revealed acute uncomplicated pancreatitis. Lipase was elevated above 2300. She is not a significant alcohol drinker. No evidence of biliary obstruction. No gallstones. - Advance to clears but will leave on clears due to worsened pain earlier today. lipase improving slowly. Continue IV fluids for now. - PPI case reports of pancreatitis, unclear if causative at this time. Also has been on citalopram and semaglutide as well in the past year, but not recently. - Triglyceride level was unremarkable. - continue daily lipase given worsening today and unclear etiology - Will send IGG subclassesl. 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 How this is managed is less clear. 2. IDDM, with DKA, resolved. - has been managed as type 2. A1c 7.6%. Rule out autoimmune type 1. - treated with insulin infusion for DKA. Now gap resolved and acidosis improved. - for now continue Lantus 7 U daily and sliding scale q6 hr, adjust as necessary with diet - sent KOMAL 65 antibody. Presuming insulin dependent given multiple DKA episodes. 5. Epigastric pain and associated dysphagia/odynophagia, chronic and stable. -discussed with her gas torch solderer today, Dr. Young. She is scheduled for EGD with esophageal dilation on November 27. 6. Severe acute protein calorie malnutrition. Active. Discussed risks of TPN and goal of using the gut whenever possible. Advised that once her pancreatitis has resolved, she may benefit from using Glucerna for liquid nutrition benefits. If she can not do that, the next step would be time-limited tube feeds. Reviewed the significant risks of TPN and that it would be a last resort. PLAN: -continue clear liquid diet. -monitor pain. -discussed with GI at [facility]. No H/O pancreatitis. Code status Full Prophylaxis Low Minesh score Time-Based Coding :: [TOTAL MINUTES] spent with patient and on the chart (including review of chart, obtaining history, exam, reviewing outside data, placing orders, documenting exam and treatment plan, and counseling patient) on [DATE].
[2024-11-22] MEDS: POTASSIUM CHLORIDE IN WATER 10 MEQ/100 ML PIGGYBACK 50 MEQ IV ×4 (08:21→13:28)
[2024-11-22] MEDS: PANTOPRAZOLE 40 MG VIAL IV ×2 (08:21→20:19)
[2024-11-22] MEDS: INSULIN GLARGINE 100 UNIT/ML 3ML PEN 7 UNIT SUBCUT (08:22)
[2024-11-22] MEDS: INSULIN LISPRO 100 UNIT/ML 3ML VIAL SUBCUT ×3 (08:22→17:06)
[2024-11-22] MEDS: SODIUM CHLORIDE 0.9% 1,000 ML 125 ML IV ×3 (08:24→22:44)
[2024-11-22 08:25] LABS: POC Glucose 155 mg/dL (70-99)
[2024-11-22 08:26] VITALS: BP 99/56; PULSE 89; RESP 20; TEMP 35.9; O2SAT 96
--- NOTE | 2024-11-22 10:45 | DIET.PN1 ---
Dietary Progress Note Assessment: RD f/u No intake of clears besides water yesterday at dinner per pt report. Met with pt this morning who reports too tried from being up at night to try clear ensure this morning, will attempt later. Encouraged intake. Per hospitalist in rounds, pending discussions with psych and GI. If pt unable to continue to advance in diet, recc considering enteral nutrition. Pt on day 4 without significant intake. Ht: 149.86 cm Wt: 78.063 kg BMI: 34.7 Last BM: () MNA: 7 Gabo Score: 19 Diet: 11/20/24 Lunch Clear Liquid Diet Diet Modifications: Nutrition Percent Meal Consumed refused eating 11/20/24 18:00 Percent Meal Consumed 0 11/20/24 18:00 Percent Meal Consumed 0% 11/20/24 13:45 Percent Meal Consumed 0% 11/20/24 12:43 Labs: RBC 3.84 X10^6/uL (4.0-5.2) L 11/22/24 02:50 Hgb 10.6 g/dL (12.0-16.0) L 11/22/24 02:50 Hct 31.2 % (36-46) L 11/22/24 02:50 Creatinine 0.39 mg/dL (0.52-1.04) L 11/22/24 02:50 Hemoglobin A1c 7.6 % (4.0-6.0) H 11/19/24 05:10 Lactate 1.7 mmol/L (0.7-2.1) 11/18/24 08:45 Electronically Signed by: Becca Mariee 11/22/24 10:45 Clinical Dietitian [address] [address]
[2024-11-22 11:52] LABS: POC Glucose 141 mg/dL (70-99)
[2024-11-22 12:00] VITALS: BP 109/65; PULSE 90; RESP 16; TEMP 35.8; O2SAT 99
[2024-11-22] MEDS: KETOROLAC 30 MG/ML VIAL IV (12:35)
[2024-11-22 14:06] LABS: POC Glucose 131 mg/dL (70-99)
[2024-11-22] MEDS: ONDANSETRON 4 MG/2 ML INJ IV (14:44)
[2024-11-22] MEDS: POTASSIUM PHOSPHATE 30 MMOL in SODIUM CHLORIDE 0.9% 500 ML 127.5 MMOL IV (15:29)
[2024-11-22 16:44] VITALS: BP 115/71; PULSE 78; RESP 16; TEMP 36; O2SAT 100
[2024-11-22 16:44] LABS: POC Glucose 146 mg/dL (70-99)
[2024-11-22] MEDS: SODIUM CHLORIDE NASAL SPRAY 1 SPRAY NASAL (18:25)
[2024-11-22 20:00] VITALS: BP 113/75; PULSE 80; RESP 18; TEMP 35.9; O2SAT 100
[2024-11-22 20:32] LABS: POC Glucose 123 mg/dL (70-99)
[2024-11-23 03:00] VITALS: BP 121/64; PULSE 85; RESP 18; TEMP 36.1; O2SAT 95
[2024-11-23] MEDS: KETOROLAC 30 MG/ML VIAL IV ×2 (05:37→17:44)
[2024-11-23] MEDS: SODIUM CHLORIDE 0.9% 1,000 ML 125 ML IV ×2 (06:41→14:40)
--- NOTE | 2024-11-23 07:30 | PM.PN.1 ---
Subjective Subjective Interval history: S: She is having less abdominal pain than 2 days ago, about the same as yesterday. She did regurgitate her apple juice after drinking it. She was keeping water down. Her feet and hands are swelling, from IV fluids. She was walking to the bathroom. She was still having significant inability to take oral intake without regurgitation. Exam Vital Signs (past 8 hours): - 11/23/24 03:00 Temperature 97 F L Pulse Rate 85 Respiratory Rate 18 Blood Pressure 121/64 Pulse Oximetry 95 Oxygen Flow Rate 0 Oxygen Delivery Method Room Air Oxygen Flow Rate 0 Narrative Exam Narrative: NAD, alert and oriented. Fluent speech. Flat affect. Lungs are clear, normal rate and effort. Heart is regular, no murmur gallop or rub. Abdomen is soft, non distended. Extremities are free of edema. Objective Labs 11/22/24 02:50 11/22/24 02:50 Labs: Laboratory Results - last 24 hr 11/22/24 11/22/24 11/22/24 08:20 11:48 14:04 POC Whole Bld Glucose 155 H 141 H 131 H 11/22/24 11/22/24 16:42 20:26 POC Whole Bld Glucose 146 H 123 H PFSH Medical History Obesity Type 2 diabetes mellitus with insulin therapy Social History household members: family Assessment & Plan Assessment & Plan narrative: 1. Acute pancreatitis, present on admission and improving. - Patient presented with nausea, vomiting, epigastric pain. CT scan revealed acute uncomplicated pancreatitis. Lipase was elevated above 2300. 2. IDDM, with DKA, resolved. - has been managed as type 2. A1c 7.6%. Rule out autoimmune type 1. - treated with insulin infusion for DKA. Resolved. - for now continue Lantus 7 U daily and sliding scale q6 hr, adjust as necessary with diet - sent KOMAL 65 antibody. Presuming insulin dependent given multiple DKA episodes. 3. Epigastric pain and associated dysphagia/odynophagia, chronic and stable. - discussed with her rehab/pre vocational counselor today, Dr. Young. She is scheduled for EGD with esophageal dilation on November 27. - Continue PPI BID. 4. Severe acute protein calorie malnutrition. Active. PLAN: -continue bowel rest with clear liquids. -pain medications as needed. -PPI b.i.d.. -sliding scale insulin. -goal is to improve her clinically in time for her endoscopy on November 27. Time-Based Coding :: [TOTAL MINUTES] spent with patient and on the chart (including review of chart, obtaining history, exam, reviewing outside data, placing orders, documenting exam and treatment plan, and counseling patient) on [DATE].
[2024-11-23 07:56] LABS: POC Glucose 135 mg/dL (70-99)
[2024-11-23 08:00] VITALS: BP 95/50; PULSE 84; RESP 18; TEMP 35.9; O2SAT 98
[2024-11-23 11:44] LABS: POC Glucose 145 mg/dL (70-99)
[2024-11-23] MEDS: INSULIN GLARGINE 100 UNIT/ML 3ML PEN 7 UNIT SUBCUT (11:53)
[2024-11-23] MEDS: PANTOPRAZOLE 40 MG VIAL IV ×2 (11:54→20:49)
[2024-11-23 12:00] VITALS: BP 106/60; PULSE 77; RESP 20; TEMP 36.1; O2SAT 100
[2024-11-23] MEDS: ONDANSETRON 4 MG/2 ML INJ IV (13:28)
[2024-11-23 13:39] LABS: GAD-65 Antibody <5.0 U/mL (0.0-5.0)
--- NOTE | 2024-11-23 14:04 | DIET.PN1 ---
Dietary Progress Note Assessment: Pt reporting abd pain still this morning, did not have any intake besides water last night and this morning per pt. Per pt this afternoon, had some apple juice and threw it up. Asked about options on full liquid diet. Discussed menu and Ensure/glucerna options for full liquids for if pt is advanced. Per hospitalist this afternoon, pt not appropriate for enteral or TPN at this time. Has esophageal dilation November 27 at [facility]. Ht: 149.86 cm Wt: 78.063 kg BMI: 34.7 UBW: Last BM: () MNA: 7 Gabo Score: 20 Diet: 11/20/24 Lunch Clear Liquid Diet Diet Modifications: Nutrition Percent Meal Consumed 0% 11/22/24 18:00 Labs: RBC 3.84 X10^6/uL (4.0-5.2) L 11/22/24 02:50 Hgb 10.6 g/dL (12.0-16.0) L 11/22/24 02:50 Hct 31.2 % (36-46) L 11/22/24 02:50 Creatinine 0.39 mg/dL (0.52-1.04) L 11/22/24 02:50 Hemoglobin A1c 7.6 % (4.0-6.0) H 11/19/24 05:10 Lactate 1.7 mmol/L (0.7-2.1) 11/18/24 08:45 Monitoring/Evaluations: will continue to follow Electronically Signed by: Becca Mariee 11/23/24 14:04 Clinical Dietitian [address] [address]
[2024-11-23 16:00] VITALS: BP 105/61; PULSE 70; RESP 15; TEMP 35.8; O2SAT 100
--- NOTE | 2024-11-23 16:06 | CM.DPNOTE ---
FAWAD Cont Reviewed chart. Patient discussed in multidisciplinary rounds. Patient has clinically improved although continues to complain of various ailments that prevent her from eating. Patient scheduled for an esophageal dilation on November 27 at [facility] with gastroenterology. Dr Rojo has been in contact with [facility]. Patient meets criteria for severe malnutrition, DR Rojo discussing artificial nutrition with patient as she continues to be resistant to eating. Psychiatry consult held at this time as additional medical work up is anticipated that might help explain patient's complaints. Plan remains discharge home w/family with close outpatient follow up at [facility]. CM team following closely in case any discharge needs or concerns arise. TEN
[2024-11-23 17:46] LABS: POC Glucose 132 mg/dL (70-99)
[2024-11-23 20:58] LABS: POC Glucose 144 mg/dL (70-99)
[2024-11-23 21:06] VITALS: BP 113/57; PULSE 62; RESP 16; TEMP 35.6; O2SAT 100
[2024-11-24 02:39] VITALS: BP 104/64; PULSE 81; RESP 18; TEMP 36; O2SAT 100
--- NOTE | 2024-11-24 04:28 | PC.NURSE ---
patient requested to put a sign in her door not be disturbed. patient stated she will call if she needed anything and also stated to remind everyone not to be disturbed. RN is aware
--- NOTE | 2024-11-24 06:45 | PC.NURSE ---
patient does not want to be wake up or be bother RN is aware per patient request
[2024-11-24 07:48] LABS: POC Glucose 138 mg/dL (70-99)
--- NOTE | 2024-11-24 08:04 | PM.PN.1 ---
Subjective Subjective Interval history: S: She was having more epigastric pain and did vomit water today. She did request a transfer to [facility]. I did for this request to her primary GI doctor at [facility], Dr. Young. Exam Vital Signs (past 8 hours): - 11/24/24 02:39 Temperature 96.8 F L Pulse Rate 81 Respiratory Rate 18 Blood Pressure 104/64 Pulse Oximetry 100 Oxygen Flow Rate 0 Oxygen Delivery Method Room Air Oxygen Flow Rate 0 Narrative Exam Narrative: NAD, alert and oriented. Fluent speech. Lungs are clear, normal rate and effort. Heart is regular, no murmur gallop or rub. Abdomen is soft, non distended. She has midepigastric tenderness with deep palpation. Extremities are free of edema. Objective Labs 11/24/24 11:03 11/24/24 11:03 Labs: Laboratory Results - last 24 hr 11/20/24 11/23/24 11/23/24 09:20 11:40 17:41 POC Whole Bld Glucose 145 H 132 H Anti-KOMAL 65 Antibody <5.0 11/23/24 11/24/24 20:53 07:45 POC Whole Bld Glucose 144 H 138 H Anti-KOMAL 65 Antibody [facility] Medical History Obesity Type 2 diabetes mellitus with insulin therapy Social History household members: family Assessment & Plan Assessment & Plan narrative: 1. Acute pancreatitis, present on admission and improving. - Patient presented with nausea, vomiting, epigastric pain. CT scan revealed acute uncomplicated pancreatitis. Lipase was elevated above 2300. 2. IDDM, with DKA, resolved. - has been managed as type 2. A1c 7.6%. Rule out autoimmune type 1. - treated with insulin infusion for DKA. Resolved. - for now continue Lantus 7 U daily and sliding scale q6 hr, adjust as necessary with diet - sent KOMAL 65 antibody. Presuming insulin dependent given multiple DKA episodes. 3. Epigastric pain and associated dysphagia/odynophagia, chronic and stable. - discussed with her service person today, Dr. Young. She is scheduled for EGD with esophageal dilation on November 27. - Continue PPI BID. 4. Severe acute protein calorie malnutrition. Active. 5. Hypokalemia, active. PLAN: -continue bowel rest with clear liquids. -pain medications as needed. -PPI b.i.d.. -sliding scale insulin. -40 mEq KCL IV riders. -Request transfer to [facility]. Time-Based Coding :: [TOTAL MINUTES] spent with patient and on the chart (including review of chart, obtaining history, exam, reviewing outside data, placing orders, documenting exam and treatment plan, and counseling patient) on [DATE].
[2024-11-24 09:21] VITALS: BP 113/69; PULSE 79; RESP 16; TEMP 35.8; O2SAT 99
[2024-11-24] MEDS: SODIUM CHLORIDE 0.9% 1,000 ML 100 ML IV (09:40)
[2024-11-24] MEDS: INSULIN GLARGINE 100 UNIT/ML 3ML PEN 7 UNIT SUBCUT (11:09)
[2024-11-24] MEDS: PANTOPRAZOLE 40 MG VIAL IV (11:09)
[2024-11-24 11:12] LABS: Hematocrit 33.2 % (36-46); Hemoglobin 11.2 g/dL (12.0-16.0); Mean Corpuscular HGB Conc 33.6 % (30-36); Mean Corpuscular Hemoglobin 27.4 PG (26-34); Mean Corpuscular Volume 81.5 fL (80-100); Platelet Count 267 X10^3/uL (150-400); Red Blood Cell Count 4.07 X10^6/uL (4.0-5.2); Red Cell Distribution Width 16.6 % (11.6-14.8); White Blood Cell Count 8.5 X10^3/uL (4.5-11.0)
[2024-11-24 11:27] LABS: Calcium 8.4 mg/dL (8.4-10.2); Carbon Dioxide 13 mmol/L (22-32); Chloride 109 mmol/L (98-107); Estimated Glomerular Filt Rate > 60 mL/min (>60); Glucose 136 mg/dL (70-99); HEMOLYSIS < 15 (0-50); Potassium 3.1 mmol/L (3.4-5.1); Sodium 137 mmol/L (137-145)
[2024-11-24 11:33] LABS: BUN Creatinine Ratio 4.9 (6-22); Blood Urea Nitrogen < 2 mg/dL (7-17)
[2024-11-24 11:58] LABS: POC Glucose 134 mg/dL (70-99)
[2024-11-24 13:14] LABS: Lipase 1326 U/L (23-300)
[2024-11-24] MEDS: POTASSIUM CHLORIDE IN WATER 10 MEQ/100 ML PIGGYBACK 100 MEQ IV (13:39)
--- NOTE | 2024-11-24 14:15 | CM.DPNOTE ---
Addendum entered by JOHANA Sanchez 11/24/24 14:30: per survey party chief, accepted and has been at [facility]. likely transfer later this evening for specialized GI care. GINETTE Original Note: DCP note HALF BACKER reviewed EMR. received vm form pt inquiring about possibility of transfer and had concerns wishing to express about care received. HALF BACKER met with pt in room. pt reports if [facility] is not able to meet her speciality needs she would prefer to be transferred to [facility] where her OP GI provider is. HALF BACKER reported would pass that along to provider but cannot make any promises on a transfer. pt expressed concerns regarding attitude and care from dental laboratory technician/staff here. HALF BACKER listened emphatically. encouraged pt to report online in website concerns. Showed pt how to find form on website. pt claims will do so. HALF BACKER updated provider on pt's preference to transfer to facility with specialized care. provider plans to look into it. HALF BACKER updated RN. P: either improve medically enough to be able to DC with OP f/u by November 27 vs transfer to [facility] for specialized care. CM team will continue to follow as needed for DCP coordination JOHANA Sanchez
[2024-11-24 14:26] LABS: Magnesium 1.6 mg/dL (1.6-2.3)
--- NOTE | 2024-11-24 15:05 | PM.DS.1 ---
History of Present Illness History of Present Illness Chief complaint: Severe acid reflux and GERD; vomiting blood Narrative: From H&P: 29-year-old female with type 2 diabetes, odynophagia, dysphagia, chronic epigastric pain, focal mild chronic inflammation of the antrum of the stomach, protein calorie malnutrition, anxiety, class 1 obesity, hidradenitis suppurativa of the axilla who presented to the emergency department with nausea, vomiting, and abdominal pain. She was previously hospitalized here from October 24, 2024 until October 26, 2024 with similar symptoms. She underwent EGD with biopsies. Ultimately, the EGD was unremarkable with the exception of a small punctate area of bleeding from the mucosa of the fundus. Random biopsies were taken with the only abnormal finding being focal mild chronic inflammation of the antrum of the stomach. Patient did follow up with [facility]. She underwent laryngoscopy which was normal. GI had a plan to perform a repeat EGD with potential esophageal dilation and sent her for a gastric emptying study. Unfortunately, her insurance would not cover it. She subsequently canceled the appointment. She had a follow-up appointment scheduled on 11/15 but evidently did not show up for that appointment. She does have a follow-up scheduled on November 27. She did request having esophageal manometry done, but that has not yet been approved or determined if it should be the next step. She reports she is continued to struggle with being able to eat. She is not taking her short-acting insulin but does intermittently take her Lantus. She states she is looked online and thinks she should be on TPN as she believes she needs to supplement her nutrition. She states that she weighed 207 several months ago and now weighs 170 lb. She states she frequently coughs up frothy phlegm which she believes is combination of mucus and stomach acid. She believes she is having silent reflux. She believes that this is giving her nausea and vomiting and believes this somehow has caused her acute pancreatitis symptoms. Discharge Providers Provider Date of admission: 11/18/24 10:32 Discharge Date: 11/24/24 Primary care physician: ROSA ISELA Lemon Consults: None. Discharge provider: Francois Rojo MD Summary Hospital Course Discharge Diagnosis: 1. Acute pancreatitis, present on admission and improving. - Patient presented with nausea, vomiting, epigastric pain. CT scan revealed acute uncomplicated pancreatitis. Lipase was elevated above 2300. 2. IDDM, with DKA, resolved. - has been managed as type 2. A1c 7.6%. Rule out autoimmune type 1. - treated with insulin infusion for DKA. Resolved. - for now continue Lantus 7 U daily and sliding scale q6 hr, adjust as necessary with diet - sent KOMAL 65 antibody. Presuming insulin dependent given multiple DKA episodes. 3. Epigastric pain and associated dysphagia/odynophagia, chronic and stable. - discussed with her catshovel driver today, Dr. Young. She is scheduled for EGD with esophageal dilation on November 27. - Continue PPI BID. 4. Severe acute protein calorie malnutrition. Active. 5. Hypokalemia, active. Hospital Course: She was a 21-year-old female with history of type 2 diabetes he was had 2-3 months of chronic epigastric pain, and dysphagia as well as odynophagia. She has been admitted to this hospital twice with DKA and has lost about 10% of her body weight. She describes discomfort with swallowing and has been evaluated at [facility] with laryngoscopy. There was a question of reflux and she was been semi compliant with proton pump inhibitors. This time she presented with evidence of pancreatitis on imaging in the lipase of 4000 he was well as evidence of DKA. She was initially treated with pain medications, fluids, nothing by mouth, and an insulin drip. She also had hypokalemia. She resolved her acidosis but had persistent inability to take orals because of regurgitation. She declined a midline for access on the 22 of November. She has been getting recurrent doses of IV potassium to replete. She was discussed with the catshovel driver who has her scheduled for a dilation of her esophagus, . In the day of discharge she requested transfer, we will really getting know where medically with her and her procedure was scheduled on November 27. I discussed the possibility of transfer given her inability to take oral intake, persistent hypokalemia, and inability to really take liquids reliably either. She was accepted in transfer and we will likely have an attempt at esophageal dilation on November 24. Her glucose has been stable with correctional insulin and glargine at 7 units a day. Status at Discharge Cognitive/behavioral status at discharge: oriented Functional status at discharge: independent ambulation Overall status at discharge: patient is back to baseline Time Spent with Patient Time spent: Greater than 30 minutes Exam Vital Signs (past 8 hours): - 11/24/24 09:21 Temperature 96.5 F L Pulse Rate 79 Respiratory Rate 16 Blood Pressure 113/69 Pulse Oximetry 99 Oxygen Flow Rate 0 Oxygen Delivery Method Room Air Oxygen Flow Rate 0 Narrative Exam Narrative: NAD, alert and oriented. Fluent speech. Lungs are clear, normal rate and effort. Heart is regular, no murmur gallop or rub. Abdomen is soft, non distended. She has midepigastric tenderness with deep palpation. Extremities are free of edema. Objective Imaging CT scan - abdomen: Radiologist's impression: FINDINGS: Image quality: Diagnostic. Lower Chest: No significant findings. ABDOMEN: Liver: No solid mass. There is an area of focal fatty infiltration at the ligamentum teres. Gallbladder: No radiopaque gallstones or wall thickening. Biliary ducts: No biliary dilation. Pancreas: The pancreas is mildly edematous and demonstrates mesenteric inflammation and free fluid about the head and body. There is no focal mass. No ductal dilation. Spleen: Size is within normal limits. Adrenal Glands: No adrenal nodules. Kidneys and Ureters: No hydronephrosis. No solid mass. No complex renal cystic lesion which requires follow up. A small amount of hyperattenuating material is present within the renal collecting system, possibly secondary to a previous CT although none is available for review. Stomach and Bowel: Normal colonic caliber, without significant wall thickening. Oral contrast is seen within the rectum. Peritoneum: No abnormal intraperitoneal fluid. No free air. Ventral Wall: No significant ventral hernia. Abdominal Nodes: No retroperitoneal or mesenteric adenopathy by size criteria. Vessels: Aorta and inferior vena cava are normal in size. PELVIS: Pelvic Organs: Unremarkable. Bladder: No bladder wall thickening, accounting for underdistention. Pelvic Nodes: No enlarged lymph nodes. Miscellaneous: No inguinal hernias are seen. Bones: No aggressive osseous abnormality. IMPRESSION: Acute uncomplicated pancreatitis. Dictated by: Shanita Doty M.D. on 11/18/2024 at 8:54 Labs 11/24/24 11:03 11/24/24 11:03 Labs: Laboratory Results - last 24 hr 11/23/24 11/23/24 11/24/24 17:41 20:53 07:45 WBC RBC Hgb Hct MCV MCH MCHC RDW Plt Count Sodium Potassium Chloride Carbon Dioxide BUN Creatinine Estimated GFR BUN/Creatinine Ratio Glucose POC Whole Bld Glucose 132 H 144 H 138 H Calcium Magnesium Lipase 11/24/24 11/24/24 11:03 11:55 WBC 8.5 RBC 4.07 Hgb 11.2 L Hct 33.2 L MCV 81.5 MCH 27.4 MCHC 33.6 RDW 16.6 H Plt Count 267 Sodium 137 Potassium 3.1 L Chloride 109 H Carbon Dioxide 13 L BUN < 2 L Creatinine 0.41 L Estimated GFR > 60 BUN/Creatinine Ratio 4.9 L Glucose 136 H POC Whole Bld Glucose 134 H Calcium 8.4 Magnesium 1.6 Lipase 1326 H [facility] Medical History Obesity Type 2 diabetes mellitus with insulin therapy Social History household members: family Discharge Assessment & Plan Assessment and Plan Assessment: 1. Acute pancreatitis, present on admission and improving. - Patient presented with nausea, vomiting, epigastric pain. CT scan revealed acute uncomplicated pancreatitis. Lipase was elevated above 2300. 2. IDDM, with DKA, resolved. - has been managed as type 2. A1c 7.6%. Rule out autoimmune type 1. - treated with insulin infusion for DKA. Resolved. - for now continue Lantus 7 U daily and sliding scale q6 hr, adjust as necessary with diet - sent KOMAL 65 antibody. Presuming insulin dependent given multiple DKA episodes. 3. Epigastric pain and associated dysphagia/odynophagia, chronic and stable. - discussed with her catshovel driver today, Dr. Young. She is scheduled for EGD with esophageal dilation on November 27. - Continue PPI BID. 4. Severe acute protein calorie malnutrition. Active. 5. Hypokalemia, active. Plan of Treatment: Transfer to [facility] by BLS ambulance. We will hold potassium rider for transport this can be resumed at [facility]. Anticipate EGD with esophageal dilation per Dr. Young at [facility]. Discharge Plan Discharge Plan Patient Disposition: [facility] Other facility: [facility] Under care of provider: Dr. Garcia Provider Discharge Comment: Stable for transfer to [facility] for further evaluation and esophageal dilation attempt. Discharge Health Status Multidrug resistant organism: No MDRO Diet/Activity/Treatments Diet: Clear Liquid Discharge Data Primary Care Provider: Hailey Gardner Quality MIPS - DC The patient has a history of heart transplant or Left Ventricular Assist Device (LVAD). If yes, STOP here.: No The patient has current or prior documentation of left ventricular ejection fraction (LVEF) less than or equal to 40%, or moderate or severely depressed left ventricular systolic function.: No
--- NOTE | 2024-11-24 16:00 | PC.NURSE ---
Pt requested to take a shower before transfer to [facility]. After getting out of the shower, this nurse attempted to restart IV fluids but pt refused to be reattached to the IV. At this point only about 50% of the 10mEq bag of potassium chloride has been administered, and she will not be getting the IV multivitamin medication either. This was passed on in report to nurse at [facility] and MD is aware as well.
--- NOTE | 2024-11-24 16:48 | PC.NURSE ---
Pt transferred to [facility] at 1645, escorted off floor in stretcher accompanied by ambulance personnel and parents. IV in place for use at [facility], tele d/c'd, packet of information sent with ambulance team. Report called to Amy ([phone]) at [phone]. Patient left the floor with all belongings.
== END 2024-11-24 17:09 | disposition short-term general hospital (02) | DRG 282 ==
LOC: ED 07:43 → AC 10:33 → ICU 18:43 → AC 11-21 14:29
PROVIDERS: Hospitalist; Internal Medicine; Admitting Provider Family Medicine; Emergency Provider Family Medicine; Family Provider Nurse Practitioner Family; PCP Nurse Practitioner Family; Referring Provider Family Medicine; Visit Provider Family Medicine
DX: K85.90 Acute pancreatitis without necrosis or infection, unspecified (principal); E11.10 Type 2 diabetes mellitus with ketoacidosis without coma; E43 Unspecified severe protein-calorie malnutrition; E66.811 Obesity, class 1; E87.6 Hypokalemia; R10.13 Epigastric pain; R13.10 Dysphagia, unspecified; Z68.34 Body mass index [BMI] 34.0-34.9, adult; Z79.4 Long term (current) use of insulin
CPT/HCPCS: 36415; 74177; 80048; 80053; 80305; 81003; 81015; 81025; 82009; 82784; 82787; 82805; 82962; 83036; 83605; 83690; 83735; 84100; 84478; 84703; 85025; 85027; 86140; 86341; 87040; 87070; 87205; 96361; 96374; 96375; 99284; J1171; J1815; J1885; J2405; J2470; J2765; J3475; J7050; Q9967

== ENCOUNTER → 2024-12-11 10:01 | Outpatient (CLI) | payer OTHER, SELFPAY ==
[2024-11-18 17:38] VITALS: BMI 34.7
--- NOTE | 2024-12-28 16:37 | DIAB.MNT ---
Initial Diabetes Medical Nutrition Therapy Assessment Name: Faith Rojo Date: 12/11/24 Time: 10 Dx: Type II Diabetes Faith presents for initial Dm visit virtually using [facility]. RD/ELIOT is familiar with pt r/t a previous hospitalization with DKA. This RD suspects potential for Type 1.5 or GABRIELLE. May benefit from c peptide and antibody testing. Sometimes wakes up gagging and spitting. Continued dysphagia. States she cannot drink fluids right away when waking. Has to take small sips. Swallowing issues started in April 2024.Reports wt loss since that time due to limited intake. From admission visit with RD: Ht: 149.86 cm Wt: 88.5 kg BMI: 39.4 Nutritional BW: 54.5kg On a good day drinks protein shake 2 per day. bad day 1/2-1 per day. Ensure clear 5x per day (52g/bottle). Not taking insulin with this. If BG >300mg/dl will result in emesis. Loves Latvian yogurt and fruit. Likes almond milk. Wondering if she should try smoothies. Soups, even low Na, tend to cause burning in throat per report. Dairy seems to worsen mucous per report. Feels as though she is starving States she is just guessing on insulin dosing. D/c with Joseline Davenport r/t less than optimal experience per pt report. Poor experience with PCP at [facility] per report. 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 Needs new referral. Plans to establish with PCP Alexander. Self-Monitoring Blood Glucose: Uses Dexcom G7. Excessive time above 250mg/dl. TIR: 87% very high 13% high 0% in range 0% low avmg/dl GMI: NA std dev: 30mg/dl variance: 10.8% Diabetes Medications: 8u ac Novolog + correction of 1u q 25 over 125mg/dl, max 75u /day 4-5u Basaglar HS (rx: 10u HS titrate up to 30u) Pertinent Labs: HgA1c: 7.6% 10/2024 Past Medical History: (Last Reviewed 11/22/24 @ 08:04 by Francois Rojo MD) Obesity Type 2 diabetes mellitus with insulin therapy Nutrition Rx: Carbohydrates: Meal:45g Snack:15-30g 1200-1600kcal (24-30kcal/kg) 65-82g PRO (1.2-1.5g/kg) Nutrition Diagnosis: - Nutrition and food related knowledge r/t balancing swallowing barrier and DM management aeb pt report and CGM results - Predicted inadequate energy intake r/t swallowing difficulty aeb pt report Intervention: This participant was very receptive. Provided appropriate educational handouts. Discussed the following topics: Completed intake assessment. Discussed barriers to care. Medication management: insulin recs Ways to add more protein and balanced smoothies Treatment for lows Created SMART goals for patient self-care and success. Goals: Increase to 10u Basaglar per rx Take 3-4u with ensure clear Try smoothie use juice for lows prn Follow-up: REN MCCABE follow-up in 2-3 weeks. May benefit from insulin pump therapy. Dolores Trujillo, REN, CDCES Certified Diabetes Care and Document Restorer P: [phone] Thank you for this referral
== END ==
LOC: DIET 10:03
PROVIDERS: Family Provider Nurse Practitioner Family; PCP Nurse Practitioner Family; Referring Provider Student in an Organized Health Care Education/Training Program
DX: E11.9 Type 2 diabetes mellitus without complications (principal); Z71.3 Dietary counseling and surveillance; R13.10 Dysphagia, unspecified; Z68.39 Body mass index [BMI] 39.0-39.9, adult; Z79.4 Long term (current) use of insulin
CPT/HCPCS: 97802

== ENCOUNTER → 2025-01-01 14:23 | Outpatient (CLI) | payer OTHER, SELFPAY ==
[2024-11-18 17:38] VITALS: BMI 34.7
--- NOTE | 2025-01-01 14:33 | DIAB.FU ---
Follow-up Diabetes Education Assessment Name: Faith Rojo Date: 01/01/25 Time: 205-305 Dx: Type II Diabetes Faith presents for Dm visit virtually using Portal. RD/ELIOT is familiar with pt r/t a previous hospitalization with DKA. May benefit from c peptide and antibody testing. Swallowing issues started in April 2024.Reports wt loss since that time due to limited intake. Was doing Ozempic 2-3 months prior to dysphagia. Stopped due to increased constipation. Reports improved GI symptoms since last visit. Able to eat whole foods now and no longer having emesis or gagging. Using smoothies and whole foods. Much better quality of life since this change. Able to drive herself and feels more self sufficient overall. Interested in an insulin pump. Suspect some gastroparesis impacting her ability to eat? Since it has improved with improved BG. Worries about running out of insulin and CGM sensors. Does not feel comfortable reaching out to previous PCP or endo via messaging. Has new PCP appt at in early January. D/c with [facility] endo Dr. Davenport r/t less than optimal experience per pt report. Poor experience with PCP at [facility] per report. 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 Needs new referral. Plans to establish with PCP Alexander. Self-Monitoring Blood Glucose: Uses Dexcom G7. Excessive time above 250mg/dl. Was out of CGM x 1 week. No data this week. Data from last week. Improved but still elevated BG. TIR: 33% very high 48% high 19% in range 0% low avmg/dl GMI: NA std dev: 52mg/dl variance: 22.6% Last TIR: 87% very high 13% high 0% in range 0% low avmg/dl GMI: NA std dev: 30mg/dl variance: 10.8% Diabetes Medications: 5-9u ac Novolog + correction of 1u q 25 over 125mg/dl, max 75u /day 14u Basaglar HS (rx: 10u HS titrate up to 30u) Pertinent Labs: HgA1c: 7.6% 10/2024 Past Medical History: (Last Reviewed 11/22/24 @ 08:04 by Francois Rojo MD) Obesity Type 2 diabetes mellitus with insulin therapy Intervention: This participant was very receptive. Provided appropriate educational handouts. Discussed the following topics: Review of insulin titration schedule set by rx Potential plan for insulin and CGm sensors Impact her health care and diagnosis have had on her quality of life Slow digestion r/t hyperglycemia Potential for insulin pump use Created SMART goals for patient self-care and success. Goals: Increase to 10u Basaglar per rx- met Take 3-4u with ensure clear - d/c Try smoothie- met use juice for lows prn- continue If FBG if >130 consider increase by 2u q 2 days until in goal May want to consider increase of 5u if FBG >200mg/dl consecutive days Call new PCP office to see if sooner visit is available Follow-up: REN MCCABE follow-up in 2-3 weeks. Dolores Trujillo RDN, ELIOT Certified Diabetes Care and Clothing Designer P: [phone] Thank you for this referral
== END ==
LOC: DIET 14:26
PROVIDERS: Family Provider Nurse Practitioner Family; PCP Nurse Practitioner Family; Referring Provider Student in an Organized Health Care Education/Training Program
DX: E11.9 Type 2 diabetes mellitus without complications (principal); Z79.4 Long term (current) use of insulin; Z71.3 Dietary counseling and surveillance
CPT/HCPCS: G0108

== ENCOUNTER → 2025-01-22 13:49 | Outpatient (CLI) | payer OTHER, SELFPAY ==
[2024-11-18 17:38] VITALS: BMI 34.7
--- NOTE | 2025-02-05 15:54 | DIAB.MNTFU ---
Follow-up Diabetes Medical Nutrition Therapy Assessment Name: Faith Rojo Date: 01/22/25 Time: 205-310 Dx: Type II Diabetes Faith presents for Dm visit. RD/ELIOT is familiar with pt r/t a previous hospitalization with DKA. May benefit from c peptide and antibody testing. Swallowing issues started in April 2024.Reports wt loss since that time due to limited intake. Was doing Ozempic 2-3 months prior to dysphagia. Stopped due to increased constipation. BG up from last visit. Endorses headaches, dry mouth, excessive thirst/urination, heart palpitations, and dry skin. States she has been under bolusing meal time insulin due to feeling unsure if she will finish her meal. Drinking slushies and juice. Diet currently high in carbs an processed foods. Does not eat Pork. Seems slow to titrate insulin. we have reviewed a titration schedule previously. Plans to establish with Dr. Munoz on 02/06. Interested in insulin pump. Self-Monitoring Blood Glucose: Uses DexPiazza G7. Excessive time above 250mg/dl, which has increased significantly since last visit. TIR: 60% very high 32% high 8% in range 0% low avmg/dl GMI: 9.8% std dev: 63mg/dl variance: 23.2% Last TIR: 33% very high 48% high 19% in range 0% low avmg/dl GMI: NA std dev: 52mg/dl variance: 22.6% Diabetes Medications: 5-9u ac Novolog + correction of 1u q 25 over 125mg/dl, max 75u /day 14u Basaglar HS (rx: 10u HS titrate up to 30u) Pertinent Labs: HgA1c: 7.6% 10/2024 Past Medical History: (Last Reviewed 11/22/24 @ 08:04 by Francois Rojo MD) Obesity Type 2 diabetes mellitus with insulin therapy Nutrition Rx: Carbohydrates: Meal:45gSnack:15-30g 1200-1600kcal (24-30kcal/kg) 65-82g PRO (1.2-1.5g/kg) Nutrition Diagnosis: - Nutrition and food related knowledge r/t balancing swallowing barrier and DM management aeb pt report and CGM results - Excessive CHO intake r/t sugar beverage choices aeb pt report and elevated BG Intervention: This participant was very receptive. Provided appropriate educational handouts. Discussed the following topics: Review of insulin titration schedule set by rx Impact of sugar beverages on BG S/s of hyperglycemia Split dosing for meals she is unsure about finishing complex vs simple CHO Slow digestion r/t hyperglycemia insulin pump types, precautions, and pro/cons Created SMART goals for patient self-care and success. Goals: If FBG if >130 consider increase by 2u q 2 days until in goal- not met May want to consider increase of 5u if FBG >200mg/dl consecutive days - not met Call new PCP office to see if sooner visit is available- met Increase Basaglar to 17-19u tonight and then 2-3u q 2-3 days until FBG are <130 or at 30u- new Try split dose meal time insulin- new Avoid sugar beverages- new Follow-up: REN MCCABE follow-up in 2-3 weeks Dolores Trujillo RDN, ELIOT Certified Diabetes Care and Linen Worker P: [phone] Thank you for this referral
== END ==
PROVIDERS: Family Provider Nurse Practitioner Family; PCP Nurse Practitioner Family; Referring Provider Nurse Practitioner Family
DX: E11.9 Type 2 diabetes mellitus without complications (principal); Z71.3 Dietary counseling and surveillance; Z79.4 Long term (current) use of insulin
CPT/HCPCS: 97803

== ENCOUNTER → 2025-02-06 11:12 | Outpatient (CLI) | payer OTHER, SELFPAY ==
[2024-11-18 17:38] VITALS: BMI 34.7
--- NOTE | 2025-02-07 09:40 | DIAB.FU ---
Follow-up Diabetes Education Assessment Name: Faith Rojo Date: 02/06/25 Time: 121240p Dx: Type II Diabetes Faith presents for Dm visit, accompanied by her mother. TENZIN/ELIOT is familiar with pt r/t a previous hospitalization with DKA. May benefit from c peptide and antibody testing. Swallowing issues started in April 2024.Reports wt loss since that time due to limited intake. Was doing Ozempic 2-3 months prior to dysphagia. Stopped due to increased constipation. Plans to establish care with Dr. Munoz today. Reports swollen tonsils and excessive mucous. States she has an ENT referral. Has been avoiding sweetened beverages as of late. Continues wot have symptoms of hyperglycemia, ie dry mouth, fatigue, blurry vision. Constipation lately. Wants to try Omnipod5. RD messaged provider in regards to potential insulin pump therapy. At 20u HS and only 3u at meals. Under dosing insulin and having elevations. Self-Monitoring Blood Glucose: Uses Dexcom G7. Excessive time above 250mg/dl continued, though improved. TIR: 41% very high 47% high 12% in range 0% low avmg/dl GMI: 9.2% std dev: 58mg/dl variance: 23.6% Last TIR: 60% very high 32% high 8% in range 0% low avmg/dl GMI: 9.8% std dev: 63mg/dl variance: 23.2% Diabetes Medications: 5-9u ac Novolog + correction of 1u q 25 over 125mg/dl, max 75u /day 14u Basaglar HS (rx: 10u HS titrate up to 30u) Pertinent Labs: HgA1c: 7.6% 10/2024 Past Medical History: (Last Reviewed 11/22/24 @ 08:04 by Francois Rojo MD) Obesity Type 2 diabetes mellitus with insulin therapy Intervention: This participant was very receptive. Provided appropriate educational handouts. Discussed the following topics: Review of insulin titration schedule set by rx S/s of hyperglycemia Split dosing for meals she is unsure about finishing Slow digestion r/t hyperglycemia Focusing on smoothies and soups if swallowing is a challenge OP5 pro/cons, bolusing and correction, placement education Created SMART goals for patient self-care and success. Goals: Increase Basaglar to 17-19u tonight and then 2-3u q 2-3 days until FBG are <130 or at 30u- in progress Try split dose meal time insulin- met Avoid sugar beverages- met Increase Basaglar to 25u tonight and increase up to 30u over the next week prn- new cuprous chloride helper smoothie ingredients - new cuprous chloride helper soups- new Call ENT for appt- new Trial 8-10u at meals- new Follow-up: REN MCCABE follow-up in 1 week if she obtains OP5 supplies and vials. Dolores Trujillo RDN, [facility] Certified Diabetes Care and Gas Meter [place] P: [phone] Thank you for this referral
== END ==
LOC: DIET 11:12
PROVIDERS: Family Provider Nurse Practitioner Family; PCP Family Medicine; Referring Provider Student in an Organized Health Care Education/Training Program
DX: E11.9 Type 2 diabetes mellitus without complications (principal); Z71.3 Dietary counseling and surveillance; Z79.4 Long term (current) use of insulin
CPT/HCPCS: G0108

== ENCOUNTER → 2025-02-08 14:13 | Outpatient (CLI) | payer OTHER, SELFPAY ==
[2024-11-18 17:38] VITALS: BMI 34.7
[2025-02-08 15:08] LABS: Add Manual Diff / Slide Review NO; Hematocrit 38.4 % (36-46); Hemoglobin 12.6 g/dL (12.0-16.0); Lymphocytes Absolute Auto 1800 /uL (1100-4500); Mean Corpuscular HGB Conc 32.7 % (30-36); Mean Corpuscular Hemoglobin 27.5 PG (26-34); Mean Corpuscular Volume 83.8 fL (80-100); Platelet Count 279 X10^3/uL (150-400)
[2025-02-08 15:31] LABS: Hemoglobin A1C% w Est Avg Glu 8.9 % (4.0-6.0)
[2025-02-08 15:33] LABS: Alanine Aminotransferase 14 IU/L (<35); Albumin 4.4 g/dL (3.5-5.0); Albumin Globulin Ratio 1.5 (1.0-2.8); Alkaline Phosphatase 77 U/L (38-126); Blood Urea Nitrogen 6 mg/dL (7-17); Calcium 9.5 mg/dL (8.4-10.2); Carbon Dioxide 25 mmol/L (22-32); Chloride 102 mmol/L (98-107); Estimated Glomerular Filt Rate > 60 mL/min (>60); Globulin 3.0 g/dL (1.7-4.1); Glucose 132 mg/dL (70-99); HEMOLYSIS < 15 (0-50); Lipase 14 U/L (23-300); Potassium 4.3 mmol/L (3.4-5.1); Sodium 137 mmol/L (137-145); Total Protein 7.4 g/dL (6.3-8.2)
[2025-02-12 05:13] LABS: Insulin Level Total 2.6 uIU/mL (2.6-24.9)
== END ==
PROVIDERS: Family Provider Nurse Practitioner Family; PCP Family Medicine; Referring Provider Family Medicine; Visit Provider Family Medicine
DX: E11.9 Type 2 diabetes mellitus without complications (principal); Z79.4 Long term (current) use of insulin; Z87.19 Personal history of other diseases of the digestive system; Z86.39 Personal history of other endocrine, nutritional and metabolic disease; K85.90 Acute pancreatitis without necrosis or infection, unspecified
CPT/HCPCS: 36415; 80053; 83036; 83525; 83690; 85025; 86341

== ENCOUNTER → 2025-03-08 09:05 | Outpatient (CLI) | payer OTHER, SELFPAY ==
[2024-11-18 17:38] VITALS: BMI 34.7
--- NOTE | 2025-03-08 09:06 | DIAB.FU ---
Follow-up Diabetes Education Assessment Name: Faith Rojo Date: 03/08/25 Time: a Dx: Type II Diabetes Faith presents for Dm visit virutally using Portal. Swallowing issues started in April 2024. H/o Ozempic 2-3 months prior to dysphagia. Stopped due to increased constipation. Established PCP with Dr. uMnoz. Completed antibody labs and confirmed T2 diagnosis. Improved BG since last visit, though still excessive elevations. Today she discussed her history with having DM through school and in the work place. Due to negative interactions and seemingly discriminatory experiences, she aims to conceal her DM from others. Omnipod still in progress with prior authorization. Today we did discuss other pumps that may be better covered, however these would be tubed, and since she feels the need to be very private about her DM, tubeless OP5 may still be the best choice for her. She agreed. States she is often guessing at her prandial insulin doses. Carb counting seems to be difficult per report. FBG much improved and often in goal per CGM reports. Self-Monitoring Blood Glucose: Uses Dexcom G7. Much improved BG, though slightly above goal in hyperglycemia. Elevations mostly r/t postprandial spikes with under bolusing. TIR: 4% very high 23% high 73% in range 0% low avmg/dl GMI: 7.1% std dev: 48mg/dl variance: 30.4% Last TIR: 41% very high 47% high 12% in range 0% low avmg/dl GMI: 9.2% std dev: 58mg/dl variance: 23.6% Diabetes Medications: 4-6u ac Novolog with max dosing at 8u per report 23u Basaglar HS Pertinent Labs: HgA1c: 7.6% 10/2024 8.9% 01/2025 Past Medical History: (Last Reviewed 11/22/24 @ 08:04 by Francois Rojo MD) Obesity Type 2 diabetes mellitus with insulin therapy Intervention: This participant was very receptive. Provided appropriate educational handouts. Discussed the following topics: Bolusing recommendations based on size of meal Titration for basal insulin based on FBG Rule of 15 for tx of lows Pairing CHO and protein Created SMART goals for patient self-care and success. Goals: Increase Basaglar to 25u tonight and increase up to 30u over the next week prn- d/c residential supervisor smoothie ingredients - not discussed residential supervisor soups- not discussed Call ENT for appt- met Trial 8-10u at meals- not met Only increase basal if 2-3 days above 130mg/dl (limit inc to 2-3u over 2-3 days prn and communicate with PCP changes)- new Bolus according to meal size (7u for small, 8-9u for medium, 10u for large)- new Keep low tx on hand (tabs/gel/juice)- new Pair CHO and protein- new Follow-up: REN MCCABE follow-up in 2-3 weeks, sooner if OP5 supplies obtained. Will focus more on nutrition next visit. Dolores Trujillo, REN, [facility] Certified Diabetes Care and Clinical Science Liaison P: [phone] Thank you for this referral
== END ==
LOC: DIET 09:05
PROVIDERS: Family Provider Nurse Practitioner Family; PCP Family Medicine; Referring Provider Family Medicine
DX: E11.65 Type 2 diabetes mellitus with hyperglycemia (principal); Z71.3 Dietary counseling and surveillance; Z79.4 Long term (current) use of insulin
CPT/HCPCS: G0108

== ENCOUNTER → 2025-03-20 16:18 | Outpatient (CLI) | payer OTHER, SELFPAY ==
[2025-03-14 09:25] VITALS: BMI 34.7
[2025-03-20 19:18] LABS: Influenza A - CEPHEID Flu A NEGATIVE (NEGATIVE); Influenza B - CEPHEID Flu B NEGATIVE (NEGATIVE)
[2025-03-20 19:19] LABS: COVID-19 CEPHEID 4-PLEX PCR Negative (Negative)
== END ==
PROVIDERS: Family Provider Nurse Practitioner Family; PCP Family Medicine; Visit Provider Physician Assistant
DX: J02.9 Acute pharyngitis, unspecified (principal); J35.3 Hypertrophy of tonsils with hypertrophy of adenoids
CPT/HCPCS: 87637

== ENCOUNTER → 2025-03-21 14:13 | Outpatient (CLI) | payer OTHER, SELFPAY ==
[2025-03-14 09:25] VITALS: BMI 34.7
== END ==
PROVIDERS: Family Provider Nurse Practitioner Family; PCP Family Medicine; Visit Provider Physician Assistant
DX: R07.0 Pain in throat (principal); G89.29 Other chronic pain
CPT/HCPCS: 87102

== ENCOUNTER → 2025-03-26 10:55 | Outpatient (CLI) | payer OTHER, SELFPAY ==
[2025-03-14 09:25] VITALS: BMI 34.7
[2025-03-26 13:38] LABS: Coronavirus NL 63 Not Detected (Not Detect); SARS- CoV-2 Not Detected (Not Detecte)
== END ==
PROVIDERS: PCP Family Medicine; Visit Provider Physician Assistant
DX: R07.0 Pain in throat (principal); G89.29 Other chronic pain
CPT/HCPCS: 87633

== ENCOUNTER → 2025-03-26 10:57 | Outpatient (CLI) | payer OTHER, SELFPAY ==
[2025-03-14 09:25] VITALS: BMI 34.7
--- NOTE | 2025-03-26 10:58 | DI.RAD.S_ITS ---
PROCEDURE: XR CHEST 2V INDICATIONS: chronic throat /upper chest pain TECHNIQUE: 2 views of the chest were acquired. COMPARISON: None. FINDINGS: Surgical changes and devices: None. Lungs and pleura: Lungs are clear. No pleural effusions or pneumothorax. Mediastinum: Mediastinal contours are normal. Heart size is normal. Bones and chest wall: No suspicious bony abnormalities. Soft tissues appear unremarkable. IMPRESSION: No acute cardiopulmonary abnormality is seen. Approved by: Shantell Hull M.D.,Ph.D. on 03/26/2025 at 12:29
== END ==
PROVIDERS: PCP Family Medicine; Referring Provider Physician Assistant; Visit Provider Physician Assistant
DX: R07.0 Pain in throat (principal); G89.29 Other chronic pain
CPT/HCPCS: 71046

== ENCOUNTER → 2025-04-16 08:38 | Outpatient (CLI) | payer OTHER, SELFPAY ==
[2025-04-11 10:08] VITALS: BMI 34.7
--- NOTE | 2025-04-16 13:54 | ST.SWALLOW ---
Visit Care Team Role Provider Type Radha Munoz DO Attending Provider Physician Family Provider Primary Care Provider Referring Provider Specialty: Family Practice Address: [address] [place] [address], [address], [place], [address] Email: [email or web address] Modified Barium Swallow Study GOLF PROFESSIONAL Modified Barium Swallow Study Start: 04/16/25 11:52 Freq: Status: Active Protocol: Document 04/16/25 11:52 LNK (Rec: 04/16/25 13:53 LNK Desktop) Modified Barium Swallow Study Patient Information Patient History Pt is a 29 yo female who was seen for a Modified Barium Swallow Study with ?c/o difficulty swallowing solids and pills. Pt reported difficulty/ prolonged swallow initiation, odynophagia and globus sensation with solids. She reported it takes her 2-3 hours to finish meals and has caused her to lose weight . Pt reported her swallowing difficulty began ~1 year ago. Her baseline diet is regular solid foods and thin liquids. Pt was hospitalized on 10/24/24 with diabetic kitoacidosis and pancreatitis. An MBSS completed during a hospitalization revealed all phases of swallowing WNL. AP view indicated minimal esophageal retention and reverse flow of contrast, quickly clearing?. Pt describes her meals as consisting of small bites/ sips, slow rate, prolonged preparation, and multiple swallows/bite. Her and medications are taken crushed in puree or in a liquid form. Pt denied hx of neurological or respiratory issues. Pt endorsed GERD for which she takes omeprazole 1x/day. Pt also reported dx of chronic enlarged tonsils/ tonsillitis. Pt stated she has an appointment in April to see an ENT at [facility] in [place], [place]. She also has an appointment with GI in April at [facility]. On 04/10/25, the pt was seen by ST at for outpatient swallow evaluation. The results indicated ?Based on clinical swallow evaluation and pt report ? 'there is concern for possible pharyngeal dysphagia given report of odynophagia, difficulty initiating swallow, and globus sensation. Recommend further evaluation /c use of imaging via MBSS to confirm/rule out presence of pharyngeal dysphagia. Subjective Pt was seated in the flouroscopy chair with directions Observations and procedures explained for her. She indicated she understood and agreed to proceed. Patient Positioning Position View Lat-A/P Imaging Lateral View Textures Administered Trials Presented Thin Liquid via Spoon (IDDSI 0),Thin Liquid via Cup ( IDDSI 0),Extremely Thick Liquid via Spoon (IDDSI 4), Regular (IDDSI 7) Barium Tablet Yes The IDDSI Framework Protocol: IDDSI.1 Oral Impairment Source: The Modified Barium Swallow Impairment Profile (MBSImP??) Lip Closure No labial escape Tongue Control Cohesive bolus between tongue to palatal seal During Bolus Hold Bolus Preparation/ Disorganized chewing/mashing with solid pieces of bolus Mastication unchewed Bolus Transport/ Repetitive/disorganized tongue motion Lingual Motion Oral Residue Complete oral clearance Initiation of Bolus head in valleculae Pharyngeal Swallow Additional Oral *OME and DKS were observed to be WFL. Impairment *Dentition natural in good hygiene Observations *Small oropharyngeal space with enlarged tonsils observed. Very small area between tonsils noted *Velopharyngeal closure was WNL. With liquids bolus transport AP was observed to be WNL; however with semisolid and solid trials there was significant delay with repetitive/disorganized tongue motion. *Mastication with semi solid and solid trials was observed to be disorganized with a munching/mashing pattern. A rotary chew as not observed. Swallow initiation was delayed for semi solid and solid trials. It appeared that the bolus was moved posteriorly by the tongue pressing it against the palate. Several small bolus swallow attempts were necessary in order to swallow a of a teaspoonful of pudding (semi solid trial) and a small 1/2 cookie (solid trial). During this time the patient was noted to be chewing the pudding. During the cookie trial, the same mashing munching mastication was observed. Pharyngeal Impairment Source: The Modified Barium Swallow Impairment Profile (MBSImP??) Soft Palate No bolus between soft palate & pharyngeal wall Elevation Laryngeal Elevation Part.sup.move.thyroid cart/part.approx.arytenoids to epiglot.petiole Anterior Hyoid No anterior movement Excursion Epiglottic Movement Complete inversion Laryngeal Vestibular Complete; no air/contrast in laryngeal vestibule Closure Pharyngeal Stripping Present - diminished Wave Pharyngoesophageal Complete distention & complete duration; no obstruction Segment Opening of flow Tongue Base Narrow column of contrast/air betwn tongue base & post. Retraction pharyngeal wall Pharyngeal Residue Collection of residue within/on pharyngeal structures Location Diffuse (>3 areas) Additional *Laryngeal elevation reduced Pharyngeal *NO forward movement of the hyoid Impairment *Epiglottic inversion judged to be adequate. Observations *Tongue base retraction and stripping wave of the inferior pharyngeal wall was reduced resulting in pharyngeal residue. *Post-swallow residue was mild primarily at the base of tongue, valleculae and pyriform sinuses across trials. *Cricopharyngeal opening was adequate and did not appear to impede bolus flow. *No laryngeal penetration or tracheal aspiration was observed. A/P View Textures Administered Trials Presented Thin Liquid via Spoon (IDDSI 0),Regular (IDDSI 7) The IDDSI Framework Protocol: IDDSI.1 A/P View Observations Pharyngeal Complete Contraction Esophageal Clearance Complete clearance; esophageal coating Upright Position Vocal Fold Function Good Esophageal Function WFL Clinical Impressions Dysphagia Type Oral,Pharyngeal Findings Oral and pharyngeal dyspaghia was observed: (Oral Phase) *With liquids bolus transport AP was observed to be WNL: however with semisolid and solid trials there was significant delay with repetitive/disorganized tongue motion. *Mastication with semi solid and solid trials was observed to be disorganized with a munching/mashing pattern. A rotary chew as not observed. Swallow initiation was delayed for semi solid and solid trials. It appeared that the bolus was moved posteriorly by the tongue pressing it against the palate. Several small bolus swallow attempts were necessary in order to swallow a of a teaspoonful of pudding (semi solid trial) and a small 1/2 cookie (solid trial). During this time the patient was noted to be chewing the pudding. During the cookie trial, the same mashing munching mastication was observed. (Pharyngeal phase ) *Pharyngeal weakness of the base of tongue, no forward movement of the hyoid and reduced stripping of the pharyngeal muscled. *Diffuse pharyngeal pooling was observed. *No laryngeal penetration or tracheal aspiration was observed. Swallow therapy is recommended to (1) increase base of tongue strength to elicit movement of the hyoid and reduce pharyngeal pooling and (2) utilize myofunctional therapeutic exercises to improve mastication: Lingual strengthening using resistance in all directions and oral manipulation to move non food items (i.e., toothette) and food items ( small pieces of foods) to elicit and improve mastication efficiency Rehabilitation Good Potential Patient Appropriate Yes: Base of tongue exercises; Myofunctional therapy for Therapy for chewing efficiency Recommendations Diet Liquids Order Thin (IDDSI 0) Comments No diet change is recommended Treatment Plan Therapy Outpatient Speech Therapy Recommendations
== END ==
LOC: RAD 08:39
PROVIDERS: Family Provider Family Medicine; PCP Family Medicine; Referring Provider Family Medicine; Visit Provider Family Medicine
DX: R13.12 Dysphagia, oropharyngeal phase (principal); R07.0 Pain in throat; G89.29 Other chronic pain
CPT/HCPCS: 74230; 92611

== ENCOUNTER → 2025-04-18 09:05 | Outpatient (CLI) | payer OTHER, SELFPAY ==
[2025-04-11 10:08] VITALS: BMI 34.7
--- NOTE | 2025-05-09 09:25 | DIAB.MNTFU ---
Follow-up Diabetes Medical Nutrition Therapy Assessment Name: Faith Rojo Date: 04/18/25 Time: [id number] Dx: Type II Diabetes Faith presents for Dm visit. Swallowing issues started in April 2024. H/o Ozempic 2-3 months prior to dysphagia. Stopped due to increased constipation. Wants to start Omnipod Dexcom system. Auth denied by insurance 2x at the time of this visit. She spoke with her insurance and describes a timeline for missing info before case will be closed. RD at the time of this visit planned to help facilitate this with clinic RN. Sometimes missing boluses. Swallowing is better. Barium swallow testing went well. Starting to branch out into different foods. Still hesitant. Low veggie itnake. Carries juice boxes for low BG. Most meals are protein and carb. Sometimes drinking juice. Self-Monitoring Blood Glucose: Uses Dexcom G7. Increased hyperglycemia since last visit likely r/t bolusing behaviors. TIR: 7% very high 30% high 63% in range 0% low avmg/dl GMI: 7.3% std dev: 50mg/dl variance: 29.9% Last TIR: 4% very high 23% high 73% in range 0% low avmg/dl GMI: 7.1% std dev: 48mg/dl variance: 30.4% Diabetes Medications: 4-6u ac Novolog with max dosing at 8u per report 17u Basaglar HS Pertinent Labs: HgA1c: 7.6% 10/2024 8.9% 01/2025 Past Medical History: (Last Reviewed 11/22/24 @ 08:04 by Francois Rojo MD) Obesity Type 2 diabetes mellitus with insulin therapy Nutrition Rx: Carbohydrates: Meal:45gSnack:15-30g 1200-1600kcal (24-30kcal/kg) 65-82g PRO (1.2-1.5g/kg) Nutrition Diagnosis: - Nutrition and food related knowledge r/t balancing swallowing barrier and DM management aeb pt report and CGM results- in progress - Excessive CHO intake r/t sugar beverage choices aeb pt report and elevated BG - continued Intervention: This participant was very receptive. Provided appropriate educational handouts. Discussed the following topics: Potential for other pumps, possibly better covered by her insurance Nutrition recs and easy to chew proteins and veggies Lower CHO options Beverage recommendations Bolusing recommendations Created SMART goals for patient self-care and success. Goals: Only increase basal if 2-3 days above 130mg/dl (limit inc to 2-3u over 2-3 days prn and communicate with PCP changes)- cont Bolus according to meal size (7u for small, 8-9u for medium, 10u for large)- in progress Keep low tx on hand (tabs/gel/juice)- met Pair CHO and protein- in progress Bolus pre meal- new Add ground protein to a meal- new Try soft steamer veggies- new Try canned soft green beans- new Find a sf bbq sauce you like- new Avoid sugar beverages- new Follow-up: REN MCCABE follow-up in 3-4 weeks. Dolores Trujillo RDN, [facility] Certified Diabetes Care and Tourist Information Officer P: [phone] Thank you for this referral
== END ==
PROVIDERS: Family Provider Family Medicine; PCP Family Medicine; Referring Provider Student in an Organized Health Care Education/Training Program
DX: E11.65 Type 2 diabetes mellitus with hyperglycemia (principal); Z71.3 Dietary counseling and surveillance; Z79.4 Long term (current) use of insulin
CPT/HCPCS: 97803

== ENCOUNTER → 2025-04-18 10:36 | Outpatient (CLI) | payer OTHER, SELFPAY ==
[2025-04-11 10:08] VITALS: BMI 34.7
[2025-04-18 11:38] LABS: Hemoglobin A1C% w Est Avg Glu 7.5 % (4.0-6.0)
== END ==
PROVIDERS: Family Provider Family Medicine; PCP Family Medicine; Referring Provider Family Medicine; Visit Provider Family Medicine
DX: E66.811 Obesity, class 1 (principal); E11.9 Type 2 diabetes mellitus without complications; Z79.4 Long term (current) use of insulin; Z86.39 Personal history of other endocrine, nutritional and metabolic disease
CPT/HCPCS: 36415; 83036

== ENCOUNTER → 2025-05-09 08:59 | Outpatient (CLI) | payer OTHER, SELFPAY ==
[2025-04-11 10:08] VITALS: BMI 34.7
--- NOTE | 2025-05-09 11:38 | DIAB.FU ---
Follow-up Diabetes Education Assessment Name: Faith Rojo Date: 05/09/25 Time: [id number] Dx: Type II Diabetes Faith presents for Dm visit. Improved hgA1c and TIR since last visit. hgA1c down to 7.5%, moving in the right direction. She has exhausted seemingly every avenue in trying to obtain Omnipod system. She has concerns with the recent Etsrada Amador 3 sensor recall. Currently using Dexcom, but Medtronic offers two sensors for their pump and one is an Estrada sensor. Reports extensive family h/o T2Dm and tragic deaths of family members at young ages r/t to their DM. States she is motivated to take care of her DM. Today she would like to discuss bolusing behaviors more and we will review her pump options. Per CGM results, a patters of elevations >200mg/dl indicated with meals after bolusing prandial insulin of 5-6u. Also is unaware of pen storage recs and keeps all pens in refrigerator, this results in frequent forgetfulness with bringing pen with her leaving the house. Original provider rx from last PCP: 8u ac Novolog + correction of 1u q 25 over 125mg/dl, max 75u /day 4-5u Basaglar HS (rx: 10u HS titrate up to 30u) Reports feeling unwell with elevated BG. Despite much improved TIR she does worry about DKA when BG are elevated for prolonged time. Endorses recent dental carry, plans to go to walk in dentist today. Worries this may be impacting BG as well. Avoiding sugar beverages. Trying to expand her diet with swallowing barrier. Self-Monitoring Blood Glucose: Uses Dexcom G7. Improved ITR but excessive time >250mg/dl. TIR: 8% very high 20% high 72% in range 0% low avmg/dl GMI: 7.2% std dev: 50mg/dl variance: 30.7% Last TIR: 7% very high 30% high 63% in range 0% low avmg/dl GMI: 7.3% std dev: 50mg/dl variance: 29.9% Diabetes Medications: 4-6u ac Novolog with max dosing at 8u per report 17u Basaglar HS---- 20u Pertinent Labs: HgA1c: 7.6% 10/2024 8.9% 01/2025 7.5% 03/2025 Past Medical History: (Last Reviewed 11/22/24 @ 08:04 by Francois Rojo MD) Obesity Type 2 diabetes mellitus with insulin therapy Intervention: This participant was very receptive. Provided appropriate educational handouts. Discussed the following topics: Potential for other pumps, possibly better covered by her insurance Review of CGM sensor recall Encouraged better coverage for CHO meals, especially given room with rx for titration Nutrition recs and easy to chew proteins and veggies Discussed impact DM has had on her family and provided supportive listening for what this means for her Reviewed insulin pen storage She is open to trying Medtronic 780g pump with sensor, RD will restart this process Created SMART goals for patient self-care and success. Goals: Bolus according to meal size (7u for small, 8-9u for medium, 10u for large)- in progress Bolus pre meal- improved Add ground protein to a meal- met Try soft steamer veggies- in progress Try canned soft green beans- met Find a sf bbq sauce you like- met Avoid sugar beverages- met Try 8-10u with sandwich/chips meal- new Keep the pen you are using with you at room temp- new Follow-up: REN MCCABE follow-up in 3-4 weeks or sooner uriah Trujillo RDN, [facility] Certified Diabetes Care and Boiler Fitter P: [phone] Thank you for this referral
== END ==
LOC: DIET 09:02
PROVIDERS: Family Provider Family Medicine; PCP Family Medicine; Referring Provider Family Medicine
DX: E11.9 Type 2 diabetes mellitus without complications (principal); Z71.3 Dietary counseling and surveillance; Z79.4 Long term (current) use of insulin
CPT/HCPCS: G0108